=== PATIENT | female | born 1935 | race Caucasian/White ===

== ENCOUNTER 2017-12-17 13:59 | Inpatient (IN) ==
[2017-12-17] MEDS ORDERED: Acetaminophen 325 MG Tablet PO ONE (14:47)
--- NOTE | 2017-12-17 15:01 | ED ---
HPI General Chief Complaint: Fever Stated Complaint: Med/Evac Time Seen by Provider: 12/17/17 14:47 Source: patient, family and EMS Mode of arrival: EMS Limitations: no limitations History of Present Illness HPI Narrative: 82-year-old female that presents to the ED for evaluation of fever. Patient was brought here by ambulance for evaluation of this. Patient was in the same day surgery for urology and apparently for stent removal as well as removal of stones on her kidney. She apparently has deal with some kidney stones and follows with Dr. Clayton who did the outpatient procedure. Apparently she was in postop and she started to develop a fever. Physician got concerned and sent her here for evaluation. Per patient the fever has been as high 102. Per patient she used to be on Cipro and discontinue it a couple of weeks before coming. Denies any urinary or bowel movement issues. No chest pain or shortness of breath. Denies any chest pain or shortness of breath. No other medical issues. She will does not know she was put on antibiotics or not. She was sent here for evaluation. 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 HEAD: Atraumatic. Normocephalic. EYES: Pupils equal and round 4 mms reactive to light and accommodation. No scleral icterus. No injection or drainage. ENT: No nasal bleeding or discharge. Mucous membranes pink and moist. NECK: Trachea midline. No JVD. CARDIOVASCULAR: Regular rate and rhythm. No murmur appreciated. RESPIRATORY: No accessory muscle use. Clear to auscultation. Breath sounds equal bilaterally. GASTROINTESTINAL: Abdomen soft, non-tender, nondistended. Hepatic and splenic margins not palpable. MUSCULOSKELETAL: No obvious deformities. No clubbing. No cyanosis. No edema. Full range of motion of the upper and lower extremities bilaterally. 2+ pulses bilaterally. NEUROLOGICAL: Awake and alert. No obvious cranial nerve deficits. Motor grossly within normal limits. Normal speech. PSYCHIATRIC: Appropriate mood and affect; insight and judgment normal. Course Initial Documented Vital Signs Pulse Oximetry 95 12/17/17 14:48 Last Documented Vital Signs Temperature 102.9 F H 12/17/17 15:00 Pulse Rate 124 H 12/17/17 15:32 Respiratory Rate 20 12/17/17 15:32 Blood Pressure 108/53 L 12/17/17 15:32 Pulse Oximetry 95 12/17/17 15:32 Medical Decision Making SERENITY Attestation SERENITY supervised visit: Yes Attestation: I, Dr. Sage, have reviewed the advance practice practitioner's documentation and am in agreement, met with the patient face to face, made the diagnosis, and the medical decision making was done by me. *My assessment and Findings: Patient seen and evaluated with PA, please see PA note for further details. She is here after stent placement by her urologist, and started running fevers of 102, there is suspicion of urosepsis. Lab work shows significant neutropenia of uncertain etiology. IV antibiotics were initiated after cultures were done. And sepsis protocol was initiated, with plans to admit the patient for further treatment. MDM Narrative Medical decision making narrative: 82-year-old female that presents to the ED for evaluation of fever after surgery. Patient was properly examined and was found to have signs and symptoms of unclear etiology. Deafly concerning for sepsis versus urosepsis. Labs and imaging order. Patient was started on Tylenol as well as Rocephin. Labs and imaging showed patient of note does appear to be very neutropenic. Unclear etiology. I discussed this with the as well as the patient and have never heard this before. Per family they have had blood work but unclear if this is something that the been discussed to in the past. Patient denies having any chemotherapy or any history of immunosuppression. Regardless she does appear to be septic and neutropenic so she requires admission for IV fluids, antibiotics and further evaluation. Case was discussed with my attending who evaluated the patient and agrees with plan. Case was discussed with Dr. Contreras who agrees to admission. I initially had started the patient on Rocephin as possible UTI secondary to the surgery but as patient was found to have neutropenia she was started on cefepime to cover for neutropenic fever. Fever and heart rate has improved but will require further evaluation as stated above. Differential Diagnosis Differential Diagnosis: Sepsis versus urosepsis versus UTI versus pyelonephritis versus fever after surgery Medical Records Medical records reviewed: Yes I reviewed the patient's medical records. Lab Data Lab results reviewed: Yes I reviewed the patient's lab results. Lab results narrative: Lactic acid elevated Result diagrams: 12/17/17 14:50 12/17/17 14:50 Lab Results 12/17/17 12/17/17 12/17/17 Range/Units 14:50 14:50 14:50 WBC 0.5 L (4.0-11.0) th/mm3 RBC 4.33 (4.00-5.30) mil/mm3 Hgb 11.7 (11.6-15.3) gm/dL Hct 36.7 (35.0-46.0) % MCV 84.7 (80.0-100.0) fL MCH 27.0 (27.0-34.0) pg MCHC 31.9 L (32.0-36.0) % RDW 15.6 (11.6-17.2) % Plt Count 106 L (150-450) th/mm3 MPV 8.7 (7.0-11.0) fL Prelim Diff (Auto) Slide review pending Neut % (Auto) 82.3 H (16.0-70.0) % Lymph % (Auto) 15.6 (9.0-44.0) % [place] % (Auto) 0.3 (0.0-8.0) % Eos % (Auto) 1.2 (0.0-4.0) % Baso % (Auto) 0.6 (0.0-2.0) % Neut # (Auto) 0.4 L* (1.8-7.7) th/mm3 Lymph # (Auto) 0.1 L (1.0-4.8) th/mm3 Carroll # (Auto) 0.0 (0.0-0.9) th/mm3 Eos # (Auto) 0.0 (0.0-0.4) th/mm3 Baso # (Auto) 0.0 (0.0-0.2) th/mm3 WBC Differential Manual diff final Seg Neuts % (Manual) 72 H (16-70) % Band Neuts % (Manual) 8 H (0-6) % Lymphocytes % (Manual) 20 (9-44) % Abs Neuts (Manual) 0.4 L* (1.8-7.7) th/mm3 Differential Comment . Platelet Estimate Low L (Normal) Platelet Morphology Normal (Normal) Ovalocytes 1+ H (None) Acanthocytes (Spur) 1+ H (None) Sodium 144 (136-145) meq/L Potassium 4.1 (3.5-5.1) meq/L Chloride 112 H (98-107) meq/L Carbon Dioxide 22.5 (21.0-32.0) meq/L Anion Gap 10 (5-15) meq/L BUN 16 (7-18) mg/dL Creatinine 0.68 (0.50-1.00) mg/dL Estimated GFR 83 L (>89) mL/min Random Glucose 80 (74-106) mg/dL Lactic Acid (0.4-2.0) mmol/L Calcium 8.2 L (8.5-10.1) mg/dL Magnesium 1.5 (1.5-2.5) mg/dL Total Bilirubin 1.9 H (0.2-1.0) mg/dL AST 30 (15-37) U/L ALT 23 (10-53) U/L Alkaline Phosphatase 107 (45-117) U/L Total Protein 5.9 L (6.4-8.2) g/dL Albumin 3.3 L (3.4-5.0) g/dL Urine Color (Yellw/Straw) Urine Clarity (Clear) Urine pH (5.0-8.5) Ur Specific [place] (1.002-1.035) Urine Protein (Neg-Trace) mg/dL Urine Glucose (UA) (Negative) mg/dL Urine Ketones (Negative) mg/dL Urine Occult Blood (Negative) Urine Nitrate (Negative) Urine Bilirubin (Negative) Urine Urobilinogen (Less than 2) mg/dL Ur Leukocyte Esterase (Negative) Urine RBC (0-3) /hpf Urine WBC (0-5) /hpf Micro UA Comment Urine Culture Comments 12/17/17 12/17/17 Range/Units 14:50 15:35 WBC (4.0-11.0) th/mm3 RBC (4.00-5.30) mil/mm3 Hgb (11.6-15.3) gm/dL Hct (35.0-46.0) % MCV (80.0-100.0) fL MCH (27.0-34.0) pg MCHC (32.0-36.0) % RDW (11.6-17.2) % Plt Count (150-450) th/mm3 MPV (7.0-11.0) fL Prelim Diff (Auto) Neut % (Auto) (16.0-70.0) % Lymph % (Auto) (9.0-44.0) % Carroll % (Auto) (0.0-8.0) % Eos % (Auto) (0.0-4.0) % Baso % (Auto) (0.0-2.0) % Neut # (Auto) (1.8-7.7) th/mm3 Lymph # (Auto) (1.0-4.8) th/mm3 [place] # (Auto) (0.0-0.9) th/mm3 Eos # (Auto) (0.0-0.4) th/mm3 Baso # (Auto) (0.0-0.2) th/mm3 WBC Differential Seg Neuts % (Manual) (16-70) % Band Neuts % (Manual) (0-6) % Lymphocytes % (Manual) (9-44) % Abs Neuts (Manual) (1.8-7.7) th/mm3 Differential Comment Platelet Estimate (Normal) Platelet Morphology (Normal) Ovalocytes (None) Acanthocytes (Spur) (None) Sodium (136-145) meq/L Potassium (3.5-5.1) meq/L Chloride (98-107) meq/L Carbon Dioxide (21.0-32.0) meq/L Anion Gap (5-15) meq/L BUN (7-18) mg/dL Creatinine (0.50-1.00) mg/dL Estimated GFR (>89) mL/min Random Glucose (74-106) mg/dL Lactic Acid 2.7 H (0.4-2.0) mmol/L Calcium (8.5-10.1) mg/dL Magnesium (1.5-2.5) mg/dL Total Bilirubin (0.2-1.0) mg/dL AST (15-37) U/L ALT (10-53) U/L Alkaline Phosphatase (45-117) U/L Total Protein (6.4-8.2) g/dL Albumin (3.4-5.0) g/dL Urine Color Red H (Yellw/Straw) Urine Clarity Marked H (Clear) Urine pH 7.0 (5.0-8.5) Ur Specific [place] 1.009 (1.002-1.035) Urine Protein 500 or greater (Neg-Trace) mg/dL Urine Glucose (UA) Negative (Negative) mg/dL Urine Ketones Negative (Negative) mg/dL Urine Occult Blood Small H (Negative) Urine Nitrate Positive H (Negative) Urine Bilirubin Negative (Negative) Urine Urobilinogen Less than 2 (Less than 2) mg/dL Ur Leukocyte Esterase Negative (Negative) Urine RBC (0-3) /hpf Urine WBC (0-5) /hpf Micro UA Comment Culture indicated Urine Culture Comments Culture indicated Imaging Data Attestation: I personally reviewed and interpreted this imaging study as follows : Radiologist's impression: ITS Impressions Chest X-Ray 12/17/17 14:48 CONCLUSION: COPD. Minimal atelectasis left lung base. No evidence of consolidating airspace disease. Abdomen/Pelvis CT 12/17/17 15:01 CONCLUSION: Good position of double-J stent. There is no evidence of abscess. Discharge Plan Physicians Team ED Provider: Arti Sage ED Midlevel Provider: Michael Tripathi Primary Care Provider: Mitchell Aviles Discharge Interventions Interventions: Vital Signs Last Done: 12/17/17 15:32 Status ED Status: Admitted Patient
[2017-12-17 15:25] LABS: Baso % (Auto) 0.6 % (0.0-2.0); Eos % (Auto) 1.2 % (0.0-4.0); Hematocrit 36.7 % (35.0-46.0); Hemoglobin 11.7 gm/dL (11.6-15.3); Lymph # (Auto) 0.1 th/mm3 (1.0-4.8); Lymph % (Auto) 15.6 % (9.0-44.0); Mean Corpuscular HGB Conc 31.9 % (32.0-36.0); Mean Corpuscular Volume 84.7 fL (80.0-100.0); Mean Platelet Volume 8.7 fL (7.0-11.0); Mono % (Auto) 0.3 % (0.0-8.0); Neut # (Auto) 0.4 th/mm3 (1.8-7.7); Neut % (Auto) 82.3 % (16.0-70.0); Platelet Count 106 th/mm3 (150-450); Red Blood Count 4.33 mil/mm3 (4.00-5.30); Red Cell Distribution Width 15.6 % (11.6-17.2); White Blood Count 0.5 th/mm3 (4.0-11.0)
--- NOTE | 2017-12-17 15:26 | XR ---
EXAM DATE: 12/17/2017 3:08 PM EDT AGE/SEX: 82 years / Female INDICATIONS: Fever post procedure today. CLINICAL DATA: This is the patient's initial encounter. Patient reports that signs and symptoms have been present for 1 day and indicates a pain score of 0/10. MEDICAL/SURGICAL HISTORY: None. None. COMPARISON: No prior exams available for comparison. FINDINGS: Lungs are hyperinflated. Minimal atelectasis versus scarring is seen in the left base. There is no ev idence of consolidating airspace disease, mass densities or effusions. Heart and mediastinal structures are unremarkable. CONCLUSION: COPD. Minimal atelectasis left lung base. No evidence of consolidating airspace disease. Electronically signed by: Sherif Fish MD 12/17/2017 3:24 PM EDT
[2017-12-17 15:37] LABS: Albumin 3.3 g/dL (3.4-5.0); Anion Gap 10 meq/L (5-15); Aspartate Aminotransferase 30 U/L (15-37); Blood Urea Nitrogen 16 mg/dL (7-18); Calcium 8.2 mg/dL (8.5-10.1); Carbon Dioxide 22.5 meq/L (21.0-32.0); Chloride 112 meq/L (98-107); Glomerular Filtration Rate 83 mL/min (>89); Glucose,Random 80 mg/dL (74-106); Sodium 144 meq/L (136-145)
[2017-12-17 15:38] LABS: Potassium 4.1 meq/L (3.5-5.1)
[2017-12-17 15:39] LABS: Alanine Aminotransferase 23 U/L (10-53); Alkaline Phosphatase 107 U/L (45-117); Total Protein 5.9 g/dL (6.4-8.2)
[2017-12-17 16:19] LABS: Bilirubin,Urine Negative (Negative); Clarity,Urine Marked (Clear); Color,Urine Red (Yellw/Straw); Glucose,Urine (UA) Negative (Negative); Leukocyte Esterase,Urine Negative (Negative); Nitrite,Urine Positive (Negative); Specific Gravity,Urine 1.009 (1.002-1.035)
[2017-12-17 16:37] LABS: Lymphocytes 20 % (9-44)
[2017-12-17 16:40] LABS: Acanthocytes 1+; Ovalocytes 1+; Platelet Morphology Normal (Normal)
--- NOTE | 2017-12-17 17:13 | CT ---
EXAM DATE: 12/17/2017 4:45 PM EDT AGE/SEX: 82 years / Female INDICATIONS: Stent placed today. Fever, abdominal pain. CLINICAL DATA: This is the patient's initial encounter. Patient reports that signs and symptoms have been present for 1 day and indicates a pain score of 2/10. MEDICAL/SURGICAL HISTORY: None. Hysterectomy. ORAL CONTRAST: No oral contrast ingested. RADIATION DOSE: 4.89 CTDI (mGy) COMPARISON: No prior exams available for comparison. TECHNIQUE: Multiple contiguous axial images were obtained through the abdomen and pelvis following b olus infusion of 80 ml Omnipaque 350 (iohexol) nonionic water-soluble contrast as a single exam dos e. No oral contrast ingested. Using automated exposure control and adjustment of the mA and/or kV ac cording to patient size, radiation dose was kept as low as reasonably achievable to obtain optimal di agnostic quality images. DICOM format image data is available electronically for review and comparis on. FINDINGS: There is subsegmental atelectasis in the both bases. The liver and spleen are normal in size and no f ocal defects are identified. The gallbladder and pancreas are unremarkable. No intrahepatic or extr ahepatic ductal dilatation is seen. There is extensive nephrolithiasis bilaterally. No right-sided hy dronephrosis is seen.. A double-J stent is present on the left in the expected position. There is n o evidence of abscess. No free fluid is identified. Examination of the pelvis demonstrates no evidence of free fluid or pelvic mass. No abnormally enlarg ed inguinal or retroperitoneal lymph nodes are present. The bladder is unremarkable. Numerous surgica l clips are present in the pelvis. CONCLUSION: Good position of double-J stent. There is no evidence of abscess. Electronically signed by: Josef Vargas MD 12/17/2017 5:12 PM EDT
[2017-12-17] MEDS ORDERED: Morphine Inj 4 MG/ML Vial IV.PUSH ONE (18:06)
[2017-12-17] MEDS ORDERED: Sod Chloride 0.9% Inj 1,000 ML IV.SIG ONE ×3 (18:06→19:01)
[2017-12-17] MEDS ORDERED: Norepinephrine Inj 4 MG/4 ML Ampul ONE (19:15)
[2017-12-17] MEDS ORDERED: Vasopressin Inj 40 UNIT in Sodium Chlor 0.9% Inj 98 ML IV.CONT SCH (20:00)
[2017-12-17] MEDS ORDERED: Bisacodyl 10 MG Supp RECTAL PRN (20:00)
[2017-12-17] MEDS ORDERED: Acetaminophen 325 MG Tablet PO PRN (20:02)
[2017-12-17] MEDS ORDERED: Morphine Inj 4 MG/ML Vial IV.PUSH PRN (20:02)
--- NOTE | 2017-12-17 20:14 | P.HPCC ---
History of Present Illness Service: Critical care medicine Primary Care Physician: Mitchell Aviles MD Chief Complaint: Severe sepsis status post transfer from History of Present Illness: This is an 82-year-old female. She is full code. Date of admission . Past medical history includes glaucoma, atrial fibrillation currently normal sinus rhythm on apixaban, recurrent nephrolithiasis. She was recently hospitalized and dilated for hospital for a kidney stone. She had a left-sided stent placed at that time. She was placed on apixaban due to high chads vasc2 score. She has been off this 5 mg twice daily for the procedure today. Today, patient underwent a cystoscopy, left stent removal, left ureteroscopic he with 6 basket retrieval/lithotripsy/left retrograde with left double-J stent placement by . Postprocedure, patient became hypotensive is transferred emergency to [facility]. CT abdomen/pelvis revealed no abnormality findings. Patient is double-J stent placed the left. Patient is received ceftriaxone is currently on cefepime. Patient received a total of 3 L normal saline. Despite this patient came hypotensive requiring norepinephrine drip. We are asked to mid patient. Stent placed in place patient is currently awake and alert denies pain. Inpatient Certification: I certify that the inpatient services were ordered in accordance with Medicare regulations governing the order. This includes certification that hospital inpatient services are reasonable and necessary and in the case of services not specified as inpatient-only under 42 CFR 419.22(n), that they are appropriately provided as inpatient services in accordance to with the 2-midnight benchmark under 43 CFR 412.3(e) Estimated Total Length of Stay (Days): 3 Plans for Post Hospital Care: Other acute care hospital Review of Systems Constitutional: Reports weakness, Denies anorexia, Denies chills Eyes: Denies blind spots, Denies discharge, Denies pain Ears, Nose, Mouth, and Throat: Denies abnormal hearing, Denies bleeding gums, Denies difficulty swallowing Cardiovascular: Reports irregular heart rhythm, Denies chest pain, Denies chest pain at rest Respiratory: Denies change in phlegm color, Denies chest congestion, Denies cough Gastrointestinal: Denies abdominal pain, Denies bloating, Denies change in stools Genitourinary: Denies genital lesions, Denies heavy periods Musculoskeletal: Denies abnormal walking Neurologic: Denies abnormal hearing, Denies restless legs, Denies tingling, Denies tremor(s) Psychiatric: Denies anxiety, Denies memory loss Endocrine: Denies cold intolerance, Denies excessive sweating, Denies flushing Hematologic/Lymphatic: Reports easy bleeding Allergic/Immunologic: Denies hives PMFSH - History History Provided By: Patient, 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, 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 - Medical History Medical History: Medical History (Last Updated 12/17/17 @ 20:16 by Jonah Bartlett MD) Anticoagulant long-term use Glaucoma History of hysterectomy Nephrolithiasis Paroxysmal atrial fibrillation - Surgical History Surgical History: Surgical History (Last Updated 12/17/17 @ 20:17 by Jonah Bartlett MD) History of appendectomy History of renal stent - Tobacco History Second Hand Smoke Exposure: No Tobacco Use In Past 30 Days: No Smoking Status: Never smoker - Alcohol History How Often Do You Have a Drink Containing Alcohol: 2 to 4 times a month - Substance Use History Substance History: No History of Abuse - Travel History Recent Travel in the [place] Within the Last 8 Weeks: No Recent Travel Out of the Country Within the Last 8 Weeks: No - Immunization History Tetanus Immunization: Unsure Hx Influenza Vaccine This Season: No Medications and Allergies Active Medications: Active Medications Acetaminophen (Tylenol) 650 mg PO Q6H PRN PRN Reason: PAIN 1-10 AND/OR FEVER >101F Hydrocodone Bitart/Acetaminophen (Lewis 5/325) 1 tab PO Q4H PRN PRN Reason: PAIN SCALE 1 TO 5 Al Hydroxide/Mg Hydroxide (Milk Of Magnesia Liq) 30 ml PO Q12H PRN PRN Reason: Mild Constipation Al Hydroxide/Mg Hydroxide (Milk Of Magnesia Liq) 30 ml PO Q12H PRN PRN Reason: Mild Constipation Albuterol (Albuterol Neb (Devin)) 2.5 mg NEB Q2HR NEB PRN PRN Reason: SHORTNESS OF BREATH/WHEEZING Albuterol (Duoneb Neb (Prn)) 1 ampul NEB Q4HR NEB DEVIN Bisacodyl (Dulcolax Supp) 10 mg RECTAL DAILY PRN PRN Reason: SEVERE CONSITIPATION Chlorhexidine Gluconate (Chlorhexidine 2% Cloth) 3 pack TOPICAL DAILY@0400 DEVIN Stop: 12/23/17 03:59 Chlorhexidine Gluconate (Chlorhexidine 2% Cloth) 3 pack TOPICAL DAILY@0400 PRN PRN Reason: Extra cloth needed Stop: 12/23/17 03:59 Chlorhexidine Gluconate (Chlorhexidine 2% Cloth) 3 pack TOPICAL DAILY@0400 DEVIN Stop: 12/23/17 03:59 Chlorhexidine Gluconate (Chlorhexidine 2% Cloth) 3 pack TOPICAL DAILY@0400 PRN PRN Reason: Extra cloth needed Stop: 12/23/17 03:59 Famotidine (Pepcid) 20 mg PO BID [facility] Famotidine (Pepcid Pf Inj) 20 mg IV.PUSH Q12HR [facility] Heparin Sodium (Porcine) (Heparin Inj) 5,000 units SQ Q12H DEVIN Cefepime HCl 2,000 mg/ Sodium (Chloride) 100 mls @ 200 mls/hr IV.SIG Q8H [facility] Norepinephrine Bitartrate (Levophed-Dextrose 4 Mg/250 Ml Drip) 4 mg in 250 mls @ 7.5 mls/hr IV.SIG TITRATE PRN; Protocol PRN Reason: Per Protocol Last Admin: 12/17/17 19:22 Dose: 2 mcg/min, 7.5 mls/hr Vasopressin 40 unit/ Sodium (Chloride) 100 mls @ 6 mls/hr IV.CONT CONT DEVIN; Protocol Pharmacy Profile Note (Vancomycin Consult Pharmacy) 0 mls @ 0 mls/hr OTHER UNSCH [facility] Lactulose (Lactulose Liq) 30 ml PO DAILY PRN PRN Reason: SEVERE CONSITIPATION Morphine Sulfate (Morphine Inj) 2 mg IV.PUSH Q2H PRN PRN Reason: PAIN SCALE 6 TO 10 Ondansetron HCl (Zofran Inj) 4 mg IV.PUSH Q6H PRN PRN Reason: NAUSEA OR VOMITING Pantoprazole Sodium (Protonix) 40 mg PO DAILY [facility] Senna/Docusate Sodium (Deyanira-Colace) 1 tab PO BID [facility] Sennosides (Senokot) 17.2 mg PO Q12H PRN PRN Reason: Moderate Constipation Sennosides (Senokot) 17.2 mg PO Q12H PRN PRN Reason: Moderate Constipation Sodium Chloride (Ns Flush) 0 ml IV.FLUSH DAILY [facility] Sodium Chloride (Ns Flush) 2 ml IV.FLUSH BID [facility] Sodium Chloride (Ns Flush) 2 ml IV.FLUSH PRN PRN PRN Reason: FLUSH AFTER USING IV ACCESS Sodium Chloride (Ns Flush) 2 ml IV.FLUSH PRN PRN PRN Reason: FLUSH AFTER USING IV ACCESS Sodium Chloride (Ns Flush) 2 ml IV.FLUSH BID DEVIN Terbutaline Sulfate (Brethine Inj) 1 mg SQ UNSCH PRN PRN Reason: For Extravasation Allergies Allergy/AdvReac Type Severity Reaction Status Date / Time No Known Allergies Allergy Unverified 12/17/17 14:47 Home Medications Medication Instructions Recorded Confirmed Type apixaban [Eliquis] 5 mg PO BID 12/17/17 12/17/17 History brimonidine [Alphagan P] 1 drp OPHTHALMIC (EYE) BID 12/17/17 12/17/17 History cyanocobalamin (vitamin B-12) 1,000 mcg PO DAILY 12/17/17 12/17/17 History [Vitamin B-12] dorzolamide 1 drp OPHTHALMIC (EYE) BID 12/17/17 12/17/17 History pilocarpine HCl 1 drp OPHTHALMIC (EYE) TID 12/17/17 12/17/17 History travoprost [Travatan Z] 1 drp OPHTHALMIC (EYE) QPM 12/17/17 12/17/17 History Results - Labs CBC & Chem 7: 12/17/17 14:50 12/17/17 14:50 Labs: Short CBC 12/17/17 Range/Units 14:50 WBC 0.5 L (4.0-11.0) th/mm3 Hgb 11.7 (11.6-15.3) gm/dL Hct 36.7 (35.0-46.0) % Plt Count 106 L (150-450) th/mm3 BMP 12/17/17 14:50 Sodium 144 Potassium 4.1 Chloride 112 H Carbon Dioxide 22.5 BUN 16 Creatinine 0.68 Calcium 8.2 L Liver Function 12/17/17 Range/Units 14:50 Total Bilirubin 1.9 H (0.2-1.0) mg/dL AST 30 (15-37) U/L ALT 23 (10-53) U/L Alkaline Phosphatase 107 (45-117) U/L Albumin 3.3 L (3.4-5.0) g/dL Urine 12/17/17 Range/Units 15:35 Urine Color Red H (Yellw/Straw) Urine Clarity Marked H (Clear) Urine pH 7.0 (5.0-8.5) Ur Specific [place] 1.009 (1.002-1.035) Urine Protein 500 or greater (Neg-Trace) mg/dL Urine Glucose (UA) Negative (Negative) mg/dL - Imaging Impressions Chest X-Ray 12/17/17 14:48 CONCLUSION: COPD. Minimal atelectasis left lung base. No evidence of consolidating airspace disease. Abdomen/Pelvis CT 12/17/17 15:01 CONCLUSION: Good position of double-J stent. There is no evidence of abscess. Exam Vital signs: Vital Signs 12/17/17 14:48 12/17/17 15:00 12/17/17 15:32 Temperature 102.9 F H Pulse Rate 132 H 124 H Respiratory Rate 20 20 Blood Pressure 109/49 L 108/53 L Pulse Oximetry 95 94 L 95 12/17/17 17:28 Temperature 97.9 F Pulse Rate 96 H Respiratory Rate 16 Blood Pressure 89/44 L Pulse Oximetry 98 Intake & Output 12/17/17 12/17/17 12/18/17 06:59 18:59 06:59 Intake Total 100 / 100 Balance 100 / 100 Weight 53.524 kg Intake: IV 100 / 100 Rocephin Inj 1,000 MG In NS Inj 100 / 100 100 ML @ 200 mls/hr IV.SIG ONCE ONE Rx#:[id number] - Constitutional no acute distress, cooperative - Routine HEENT Exam Head: Present: normocephalic, atraumatic Eye: Present: EOMI, PERRL ENT: Present: mucous membranes moist - Routine Neck Exam Present: supple. Absent: JVD, thyromegaly - Routine Chest/Breast/Axilla Exam Chest wall: Absent: tenderness, mass Axillae: Absent: lymphadenopathy - Routine Respiratory Exam Present: CTA bilaterally. Absent: accessory muscle use, rhonchi, stridor, wheezes - Routine Cardiovascular Exam Present: RRR, S1, S2. Absent: murmur - Routine Abdominal Exam Present: soft, normoactive bowel sounds. Absent: firm, rigid - Routine Extremities Exam Absent: cyanosis, clubbing, edema - Routine Skin Exam Present: intact, dry, warm - Routine Neurological Exam Present: alert, oriented X3, CN II-XII intact Septic Shock Reassessment Septic shock perfusion: reassessment completed Caprini VTE Risk Assessment Caprini VTE Risk Assessment: Moderate/High Risk (score >= 2) Caprini Risk Assessment Model: Point Value = 1 Point Value = 2 Point Value = 3 Point Value = 5 Age 41-60 Minor surgery BMI > 25 kg/m2 Swollen legs Varicose veins or History of unexplained or recurrent spontaneous Oral contraceptives or hormone replacement Sepsis (< 1 month) Serious lung disease, including pneumonia (< 1 month) Abnormal pulmonary function Acute myocardial infarction Congestive heart failure (< 1 month) History of inflammatory bowel disease Medical patient at bed rest Age 61-74 Arthroscopic surgery Major open surgery (> 45 min) Laparoscopic surgery (> 45 min) Malignancy Confined to bed (> 72 hours) Immobilizing plaster cast Central venous access Age >= 75 History of VTE Family history of VTE Factor V Leiden Prothrombin [id number] Lupus anticoagulant Anticardiolipin antibodies Elevated serum homocysteine Heparin-induced thrombocytopenia Other congenital or acquired thrombophilia Stroke (< 1 month) Elective arthroplasty Hip, pelvis, or leg fracture Acute spinal cord injury (< 1 month) Prophylaxis Regimen: Total Risk Factor Score Risk Level Prophylaxis Regimen 0-1 Low Early ambulation 2 Moderate Order ONE of the following: *Sequential Compression Device (SCD) *Heparin 5000 units SQ BID 3-4 Higher Order ONE of the following medications: *Heparin 5000 units SQ TID *Enoxaparin/Lovenox 40 mg SQ daily (WT < 150 kg, CrCl > 30 mL/min) *Enoxaparin/Lovenox 30 mg SQ daily (WT < 150 kg, CrCl > 10-29 mL/min) *Enoxaparin/Lovenox 30 mg SQ BID (WT < 150 kg, CrCl > 30 mL/min) AND/OR *Sequential Compression Device (SCD) 5 or more Highest Order ONE of the following medications: *Heparin 5000 units SQ TID (Preferred with Epidurals) *Enoxaparin/Lovenox 40 mg SQ daily (WT < 150 kg, CrCl > 30 mL/min) *Enoxaparin/Lovenox 30 mg SQ daily (WT < 150 kg, CrCl > 10-29 mL/min) *Enoxaparin/Lovenox 30 mg SQ BID (WT < 150 kg, CrCl > 30 mL/min) AND *Sequential Compression Device (SCD) Assessment and Plan - Assessment and Plan Plan: Neuro/Psych: Glaucoma Medicine reconciliation currently in process for her glaucoma medications which she is on 4 according to son at bedside. These are not available to me at the present time. Acetaminophen 650 mg by mouth every 6 hours as needed fever Hydrocodone/acetaminophen 5/325 1 tablet every 4 hours as needed pain 1 through 5 Morphine sulfate 2 mg IV every 2 hours as needed pain 6 or 10 CV: Lactic acidosis History of atrial fibrillation currently normal sinus rhythm Lactate is currently 3.8. Received 4 L normal saline in ED. Switch to LR at 100 cc an hour. Serial lactates until cleared Currently on norepinephrine at 6 mcg/min to maintain mean arterial pressure greater or equal to [address]-T changes in the anterior leads. Normal sinus rhythm. Normal MN, QRS and QT intervals. Check CPK and troponin Resp: Nasal cannula to maintain saturations greater than equal to 92% Incentive spirometry while awake Check post intubation chest x-ray and ABG Albuterol/ipratropium aerosols every 4 hours with albuterol aerosols every 2 hours as needed dyspnea GI: Elevated total bilirubin Hypoalbuminemia Diet as tolerated Pantoprazole for GI prophylaxis Docusate sodium/senna 1 tablet twice daily for bowel regimen CT abdomen/pelvis revealed no acute intra-abdominal findings. Double-J stent remains in place : Status post left renal stent retrieval with placement of double-J stent/ lithotripsy History of recurrent nephrolithiasis with lithotripsy Dr. Clayton did the procedure above. He does not come to this facility. No Vance catheter unless indicated Endo: Sliding scale insulin if necessary to maintain euglycemia Check TSH and cortisol Renal: Creatinine currently within normal limits Monitor urine output Accurate I's and O's and recheck BMP in a.m. 12/18 Heme: Leukopenia with neutropenia Thrombocytopenia Monitor CBC daily. Follow trends. Neutropenic precautions No active bleeding at the present time. ID: Severe sepsis likely secondary to urinary tract infection Currently in vancomycin and cefepime Blood cultures 2, UA 12/17 pending Neutropenic precautions FEN: Hypomagnesia Replace electrolytes as clinically indicated per ICU electrolyte protocol MSK: PT evaluate and treat Access -Right IJ CVL day #1 placed in 12/17 Prophylaxis -GI -pantoprazole -DVT -SCD/heparin subcu 35 minutes critical care time
[2017-12-17] MEDS ORDERED: Heparin - SQ 10,000 UNITS/ML Vial SQ SCH ×2 (20:15→21:00)
[2017-12-17] MEDS ORDERED: Potassium Chloride 25 MEQ Effervescent Tablet PO PRN (20:28)
[2017-12-17] MEDS ORDERED: Sodium Phosphate Inj 30 MMOL in Sodium Chlor 0.9% Inj 250 ML IV.SIG PRN (20:28)
[2017-12-17] MEDS ORDERED: Potassium Chlor 20 mEq Premix 20 MEQ/100 ML PIGGYBACK IV.SIG PRN (20:28)
[2017-12-17] MEDS ORDERED: Magnesium Sulfate Inj 4 GM in Sodium Chlor 0.9% Inj 92 ML IV.SIG PRN ×2 (20:28→22:10)
[2017-12-17] MEDS ORDERED: Magnesium Oxide 400 MG Tablet PO PRN (20:28)
[2017-12-17] MEDS ORDERED: Dextrose 50% in Water 50 ML Vial IV.PUSH PRN (20:28)
[2017-12-17] MEDS ORDERED: Potassium Phosphate Inj 30 MMOL in Sodium Chlor 0.9% Inj 250 ML IV.SIG PRN (20:28)
[2017-12-17] MEDS ORDERED: Potassium Chlor 40 mEq Premix 40 MEQ/100 ML PIGGYBACK IV.SIG PRN (20:28)
[2017-12-17] MEDS ORDERED: Potassium Phosphate 500 MG Soluble Tablet PO PRN ×2 (20:28)
[2017-12-17] MEDS ORDERED: Magnesium Sulfate Inj 2 GM in Sodium Chlor 0.9% Inj 96 ML IV.SIG PRN (20:28)
--- NOTE | 2017-12-17 20:30 | P.PCN ---
Date of procedure: 12/17/17 Pre-op diagnosis: Severe sepsis Post-op diagnosis: same Procedure: DATE: 12/17/2017 CENTRAL LINE PLACEMENT: Right IJ CVL. Ultrasound-guided INDICATION: Central venous access CONSENT Informed consent for procedure was obtained from patient. DESCRIPTION OF THE PROCEDURE The patient was placed in supine position. The skin was cleansed with Chloraprep. Additional barrier precautions included large sterile drape, sterile gloves, sterile gown, face mask, and hat. 1 % lidocaine was used for local anesthesia. Under direct ultrasound guidance and on initial attempt, the vein was accessed with an introducer needle. The guide wire was advanced and the tract was dilated. Using Seldinger technique a 7 [place] 20 cm antimicrobial coated triple-lumen catheter was advanced to a depth of 16 centimeters. The guide wire was removed. All ports had good return of dark venous blood and flushed easily with saline. The central line was secured with 2.0 silk and StatLock. A sterile dressing with antibiotic disc was applied. ESTIMATED BLOOD LOSS: Minimal COMPLICATIONS: No apparent complications. STAT chest x-ray revealed adequate positioning of central line
--- NOTE | 2017-12-17 20:44 | XR ---
EXAM DATE: 12/17/2017 8:40 PM EDT AGE/SEX: 82 years / Female INDICATIONS: Central line placement. CLINICAL DATA: This is the patient's initial encounter. Patient reports that signs and symptoms have been present for 1 day and indicates a pain score of 0/10. MEDICAL/SURGICAL HISTORY: Non-responsive. Non-responsive. COMPARISON: [facility], CHEST 1V SINGLE AP, 12/17/2017. . FINDINGS: Study obtained supine. No perceptible pneumothorax. There is a right internal jugular central venous catheter with tip at the atriocaval junction. No large effusion. Heart size stable, within normal limits. CONCLUSION: New right IJ central venous catheter with tip at the atriocaval junction. No perceptible pneumothorax . Electronically signed by: Andre Will MD 12/17/2017 8:43 PM EDT
[2017-12-17] MEDS ORDERED: Famotidine 20 MG Tablet PO SCH (21:00)
[2017-12-17] MEDS ORDERED: Famotidine PF Inj 20 MG/2 ML Vial IV.PUSH SCH (21:00)
[2017-12-17] MEDS ORDERED: Vancomycin Consult Pharmacy 1 EACH OTHER SCH (21:00)
[2017-12-17 21:17] LABS: ABG Base Excess -7.2 mmol/L (-2-2); ABG PCO2 32 mmHg (38-42); ABG PO2 62 mmHg (61-120)
[2017-12-17] MEDS ORDERED: Vancomycin Inj 1,250 MG in Sodium Chlor 0.9% Inj 250 ML IV.SIG ONE (22:00)
[2017-12-17] MEDS: Vasopressin Inj 40 UNIT in Sodium Chlor 0.9% Inj 98 ML IV.CONT SCH (22:37)
[2017-12-17] MEDS: Senna/Docusate Sodium 8.6/50 MG Tablet PO SCH (22:38)
[2017-12-18 00:04] LABS: Thyroid Stimulating Hormone 2.05 uIU/mL (0.358-3.740); Troponin I 0.39 ng/mL (0.02-0.05)
[2017-12-18] MEDS: Insulin NovoLOG Aspart Correctional Sugar Inj SQ SCH ×4 (01:55→18:35)
[2017-12-18] MEDS: Chlorhexidine Gluconate 2% 1 Pack (2 Cloths) TOPICAL SCH (03:27)
[2017-12-18] MEDS ORDERED: Chlorhexidine Gluconate 2% 1 Pack (2 Cloths) TOPICAL PRN ×2 (04:00)
[2017-12-18] MEDS ORDERED: Chlorhexidine Gluconate 2% 1 Pack (2 Cloths) TOPICAL SCH (04:00)
[2017-12-18 04:31] LABS: Baso % (Auto) 0.1 % (0.0-2.0); Hematocrit 29.1 % (35.0-46.0); Hemoglobin 9.4 gm/dL (11.6-15.3); Lymph # (Auto) 0.6 th/mm3 (1.0-4.8); Lymph % (Auto) 4.3 % (9.0-44.0); Mean Corpuscular HGB Conc 32.3 % (32.0-36.0); Mean Corpuscular Hemoglobin 27.4 pg (27.0-34.0); Mean Corpuscular Volume 84.9 fL (80.0-100.0); Mean Platelet Volume 8.8 fL (7.0-11.0); Mono # (Auto) 0.1 th/mm3 (0.0-0.9); Mono % (Auto) 0.9 % (0.0-8.0); Neut # (Auto) 12.6 th/mm3 (1.8-7.7); Neut % (Auto) 94.7 % (16.0-70.0); Platelet Count 73 th/mm3 (150-450); Red Blood Count 3.42 mil/mm3 (4.00-5.30); Red Cell Distribution Width 15.7 % (11.6-17.2); White Blood Count 13.3 th/mm3 (4.0-11.0)
[2017-12-18 04:43] LABS: INR 1.5 Ratio; Prothrombin Time 15.4 sec (9.8-11.6)
[2017-12-18 04:48] LABS: ABG Base Excess -11.2 mmol/L (-2-2); ABG PCO2 34 mmHg (38-42); ABG PO2 82 mmHG (61-120)
[2017-12-18] MEDS ORDERED: Etomidate Inj 20 MG/10 ML Ampul IV.PUSH ONE (05:01)
[2017-12-18 05:03] LABS: Albumin 2.2 g/dL (3.4-5.0); Calcium 6.7 mg/dL (8.5-10.1); Carbon Dioxide 15.3 meq/L (21.0-32.0); Magnesium 1.3 mg/dL (1.5-2.5); Phosphorus 2.5 mg/dL (2.5-4.9); Potassium 3.6 meq/L (3.5-5.1); Total Protein 4.4 g/dL (6.4-8.2)
[2017-12-18] MEDS ORDERED: Propofol 1000 mg/100 ml Inj 1,000 MG/100 ML BOTTLE IV.CONT PRN (05:03)
[2017-12-18] MEDS ORDERED: fentaNYL 10 mcg/mL Premix Drip 2,500 MCG/250 ML BAG IV.SIG PRN (05:04)
[2017-12-18 05:37] LABS: CKMB Percent 1.9 % (0.0-4.0)
--- NOTE | 2017-12-18 05:38 | ECG ---
Date Performed: 12/17/2017 Time Performed: 20:09:27 PTAGE: 82 years EKG: Sinus rhythm Nonspecific ST and T wave abnormalities ABNORMAL ECG NO PREVIOUS TRACING DOCTOR: Titi Garcia Interpretating Date/Time 12/18/2017 05:37:23
[2017-12-18 05:41] LABS: Lymphocytes 2 % (9-44)
[2017-12-18 05:42] LABS: Ovalocytes 1+; Platelet Morphology Normal (Normal)
--- NOTE | 2017-12-18 05:46 | P.PCN ---
Date of procedure: 12/18/17 Pre-op diagnosis: Acute respiratory failure Post-op diagnosis: same Procedure: DATE: 12/18/2017 PROCEDURE: Orotracheal intubation INDICATION: Acute hypoxemic respiratory failure DETAILS OF PROCEDURE The patient was placed in optimal position and preoxygenated with 100% FiO2 via bag valve mask. At the start oxygen saturation was 98%. The patient was administered 20 mg etomidate IV and 50 milligrams rocuronium IV. I entered the oropharynx with a size 4 laryngoscope blade and obtained a grade 2 view of the airway. On single attempt a size 8.0 cuffed endotracheal tube was passed through the vocal cords. Correct tube location was confirmed with end tidal CO2 detector and by auscultating over bilateral lung hinson. The endotracheal tube was secured with adhesive tape at a depth of 23 cm at the lips. The patient was connected to the ventilator. The patient tolerated the procedure well without any apparent complications. Oxygen saturations were maintained greater than 95% all times. STAT chest x-ray pending at time of dictation.
--- NOTE | 2017-12-18 05:47 | P.PCN ---
Date of procedure: 12/18/17 Pre-op diagnosis: Hemodynamic instability Post-op diagnosis: same Procedure: DATE: 12/18/2017 PROCEDURE: Right femoral arterial catheter placement INDICATION: Hemodynamic access DETAILS OF PROCEDURE The patient was placed in supine position. The skin was cleansed with Chloraprep. Additional barrier precautions included large sterile drape, sterile gloves, sterile gown, face mask, and hat. 1% lidocaine was used for local anesthesia. Under direct ultrasound guidance and on the initial attempt, the artery was accessed with an introducer needle. The guide wire was advanced. Using Seldinger technique 20 gauge arterial catheter was placed. The guide wire was removed. The catheter was connected to a transducer line and flushed with saline. The video monitor displayed normal arterial wave forms. The catheter was secured with 2-0 silk. A sterile dressing with antibiotic disc was applied. ESTIMATED BLOOD LOSS: minimal COMPLICATIONS: None
[2017-12-18 06:06] LABS: ABG Base Excess -10.5 mmol/L (-2-2); ABG PCO2 38 mmHg (38-42); ABG PO2 188 mmHG (61-120)
--- NOTE | 2017-12-18 06:18 | XR ---
EXAM DATE: 12/18/2017 6:09 AM EDT AGE/SEX: 82 years / Female INDICATIONS: Post intubation. CLINICAL DATA: This is the patient's subsequent encounter. Patient reports that signs and symptoms h ave been present for 1 day and indicates a pain score of Nonresponsive. MEDICAL/SURGICAL HISTORY: Non-responsive. Non-responsive. COMPARISON: [facility], CHEST 1V SINGLE AP, 12/17/2017. . FINDINGS: ETT at the level of the clavicles. NGT beyond the GE junction. Stable right IJ central line. Persiste nt diffuse interstitial prominence with bilateral lower lobe airspace disease. Cardiomediastinal cont ours are stable. Remainder of the exam is unchanged. CONCLUSION: 1. ETT in good position. NGT beyond the GE junction. Stable right IJ central line. 2. Positive fluid balance with persistent bilateral lower lobe airspace disease. Electronically signed by: Vj Payan MD 12/18/2017 6:17 AM EDT
[2017-12-18] MEDS ORDERED: Midazolam 50 MG/50 ML Inj 50 MG/50 ML BAG IV.CONT PRN (07:39)
[2017-12-18 08:14] LABS: ABG Base Excess -10.3 mmol/L (-2-2); ABG PCO2 34 mmHg (38-42); ABG PO2 190 mmHG (61-120)
[2017-12-18] MEDS ORDERED: BRIMONIDINE EACH EYE SCH (09:00)
[2017-12-18] MEDS ORDERED: Sod Chloride 0.9% Inj 2,000 ML IV.SIG ONE (09:16)
[2017-12-18] MEDS: Senna/Docusate Sodium 8.6/50 MG Tablet PO SCH ×2 (09:34→20:59)
[2017-12-18] MEDS: Chlorhexidine 0.12% Oral Kit 15 ML UDC OROPHARYNG SCH ×2 (09:35→20:57)
[2017-12-18] MEDS: Sodium Bicarbonate 8.4% Inj 150 MEQ in Dextrose 5% in Water Inj 850 ML IV.CONT SCH ×4 (09:35→18:34)
--- NOTE | 2017-12-18 09:44 | P.CONID ---
History of Present Illness Service: Infectious Disease Consult date: 12/18/17 Requesting Physician: Donato Loyola Reason for Consult: Evaluate patient with septic shock Primary Care Provider: Mitchell Aviles MD Chief Complaint: Severe sepsis status post transfer from History of Present Illness: Patient seen and examined. Records reviewed. Patient is an 82-year-old female, brought into the hospital from an outpatient surgery center, for evaluation of fevers, and hypotension. Patient has had problem with kidney stones in the past, and in the past she had passed the stones spontaneously. During the first week of November she was admitted at [facility] when she had trouble and she was in septic shock at that time. This history is from the patient's son. She had undergone cystoscopy and had placement of a stent at that time. Her blood cultures were negative, and her urine culture had E. coli. Patient was discharged on Augmentin 503 times a day , and she had 7 days of antibiotic treatment. According to the son another urine was sent, and it still showed urinary tract infection, so the patient was given another prescription and this time received Cipro. She was supposed to get an her stent placed but this was postponed due to the persistence of the infection. Patient went to have her stent removed on the day of admission, and she underwent cystoscopy, left stent removal, removal of the stone with the basket, lithotripsy, and placement of a new left double-J ureteric stent. Postoperatively she apparently had fevers up to 102 and became hypotensive, so she was transferred to the hospital for further evaluation and treatment. When she presented she was profoundly neutropenic, hypotensive. She received fluid resuscitation and remained hypotensive and is currently on pressors. She ended up getting intubated this morning. She was also very acidotic. Her urinalysis showed significant pyuria and hematuria. Patient is afebrile. Her white count is now up to 13.3. Her initial creatinine was less than 1, and it had gone up to 1.41. Her chest x-ray now is showing by basilar opacities. Infectious disease consultation has been requested to evaluate the patient with sepsis and septic shock. Review of Systems Constitutional: Reports chills, Reports fever(s), Denies headache(s) Eyes: Denies itchy eyes, Denies pain Ears, Nose, Mouth, and Throat: Denies dry mouth, Denies nasal congestion, Denies nasal discharge, Denies pain with swallowing, Denies sore throat Cardiovascular: Denies chest pain, Denies shortness of breath Respiratory: Denies cough, Denies shortness of breath Gastrointestinal: Denies abdominal pain, Denies loose stools, Denies nausea, Denies pain with swallowing, Denies vomiting Genitourinary: Denies blood in urine, Denies painful urination, Denies pelvic pain Musculoskeletal: Denies body aches Skin/Breast: Denies rash Neurologic: Denies headache(s) PMF - History History Provided By: Patient, 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, 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 - Medical History Medical History: Medical History (Last Updated 12/17/17 @ 20:16 by Jonah Bartlett MD) Anticoagulant long-term use Glaucoma History of hysterectomy Nephrolithiasis Paroxysmal atrial fibrillation - Surgical History Surgical History: Surgical History (Last Updated 12/17/17 @ 20:17 by Jonah Bartlett MD) History of appendectomy History of renal stent - Tobacco History Second Hand Smoke Exposure: No Tobacco Use In Past 30 Days: No Smoking Status: Never smoker - Alcohol History How Often Do You Have a Drink Containing Alcohol: Monthly or less - Substance Use History Substance History: No History of Abuse - Travel History Recent Travel in the [place] Within the Last 8 Weeks: No Recent Travel Out of the Country Within the Last 8 Weeks: No - Immunization History Tetanus Immunization: Unsure Hx Influenza Vaccine This Season: No Medications and Allergies Active Medications: Active Medications Acetaminophen (Tylenol) 650 mg PO Q6H PRN PRN Reason: PAIN 1-10 AND/OR FEVER >101F Hydrocodone Bitart/Acetaminophen ([place]ance 5/325) 1 tab PO Q4H PRN PRN Reason: PAIN SCALE 1 TO 5 Al Hydroxide/Mg Hydroxide (Milk Of Magnesia Liq) 30 ml PO Q12H PRN PRN Reason: Mild Constipation Al Hydroxide/Mg Hydroxide (Milk Of Magnesia Liq) 30 ml PO Q12H PRN PRN Reason: Mild Constipation Albuterol (Albuterol Neb (Prn)) 2.5 mg NEB Q2HR NEB PRN PRN Reason: SHORTNESS OF BREATH Albuterol (Duoneb Neb (Devin)) 1 ampul NEB Q4HR NEB DEVIN Last Admin: 12/18/17 08:24 Dose: 1 ampul Artificial Tears (Tears Naturale Opth Drops) 1 drop EACH EYE Q8H DEVIN Bisacodyl (Dulcolax Supp) 10 mg RECTAL DAILY PRN PRN Reason: SEVERE CONSITIPATION Chlorhexidine Gluconate (Chlorhexidine 2% Cloth) 3 pack TOPICAL DAILY@0400 [facility] Stop: 12/23/17 03:59 Last Admin: 12/18/17 03:27 Dose: 3 pack Chlorhexidine Gluconate (Peridex 0.12% Oral Kit) 15 ml OROPHARYNG BID@0800, 2000 [facility] Cyanocobalamin (Vitamin B12) 1,000 mcg PO DAILY [facility] Dextrose (D50w Vial) 50 ml IV.PUSH UNSCH PRN PRN Reason: PER HYPOGLYCEMIA PROTOCOL Dextrose (D50w Vial) 50 ml IV.PUSH UNSCH PRN PRN Reason: PER HYPOGLYCEMIA PROTOCOL Dorzolamide HCl (Trusopt 2% Opth Drops) 1 drop EACH EYE BID [facility] Glucagon (Glucagon Inj) 1 mg OTHER PRN PRN PRN Reason: for Hypoglycemia Protocol Cefepime HCl 2,000 mg/ Sodium (Chloride) 100 mls @ 200 mls/hr IV.SIG Q8H [facility] Last Admin: 12/18/17 03:26 Dose: 200 mls/hr Pharmacy Profile Note (Vancomycin Consult Pharmacy) 0 mls @ 0 mls/hr OTHER UNSCH [facility] Potassium Chloride (Kcl 40 Meq Premix Inj) 40 meq in 100 mls @ 25 mls/hr IV.SIG Q2H PRN PRN Reason: For Potassium 2.8 - 3.2 mEq/L Potassium Chloride (Kcl 40 Meq Premix Inj) 40 meq in 100 mls @ 25 mls/hr IV.SIG UNSCH PRN PRN Reason: For Potassium 3.3 - 3.5 mEq/L Potassium Chloride (Kcl 20 Meq Premix Inj) 20 meq in 100 mls @ 50 mls/hr IV.SIG Q2H PRN PRN Reason: For Potassium 2.8 - 3.2 mEq/L Potassium Phosphate 30 mmol/ (Sodium Chloride) 260 mls @ 42 mls/hr IV.SIG UNSCH PRN PRN Reason: SEE LABEL COMMENTS Sodium Phosphate 30 mmol/ (Sodium Chloride) 260 mls @ 42 mls/hr IV.SIG UNSCH PRN PRN Reason: For Phosphorus < 2.5 mg/dL Potassium Chloride (Kcl 20 Meq Premix Inj) 20 meq in 100 mls @ 50 mls/hr IV.SIG Q2H PRN PRN Reason: For Potassium 3.3 - 3.5 mEq/L Vancomycin HCl 750 mg/ Sodium (Chloride) 257.5 mls @ 250 mls/hr IV.SIG Q24H DEVIN Vasopressin 40 unit/ Sodium (Chloride) 100 mls @ 6 mls/hr IV.CONT CONT DEVIN; Protocol Last Admin: 12/17/17 22:37 Dose: 0.04 units/min, 6 mls/hr Magnesium Sulfate Inj 4 gm/ (Sodium Chloride) 100 mls @ 50 mls/hr IV.SIG UNSCH PRN PRN Reason: For Magnesium 0.9 - 1.1 mg/dL Magnesium Sulfate Inj 2 gm/ (Sodium Chloride) 100 mls @ 50 mls/hr IV.SIG UNSCH PRN PRN Reason: For Magnesium 1.2 - 1.6 mg/dL Fentanyl (Fentanyl 10 Mcg/Ml Premix Drip) 2,500 mcg in 250 mls @ 5 mls/hr IV.SIG TITRATE PRN; Protocol PRN Reason: Per Protocol Propofol (Diprivan 1000 Mg/100 Ml Inj) 1,000 mg in 100 mls @ 1.887 mls/hr IV.CONT TITRATE PRN; Protocol PRN Reason: Per Protocol Norepinephrine Bitartrate 16 (mg/ Dextrose) 250 mls @ 1.87 mls/hr IV.CONT TITRATE PRN; Protocol PRN Reason: See Protocol Sodium Bicarbonate 150 meq/ (Dextrose) 1,000 mls @ 125 mls/hr IV.CONT .Q8H DEVIN Midazolam HCl (Versed Inj) 50 mg in 50 mls @ 2 mls/hr IV.CONT TITRATE PRN; Protocol PRN Reason: Per Protocol Albumin Human (Alburx 5% Inj) 500 mls @ 250 mls/hr IV.SIG Q8HR DEVIN Sodium Chloride (Ns Inj) 2,000 mls @ 0 mls/hr IV.SIG BOLUS ONE Stop: 12/18/17 09:17 Insulin Aspart (Novolog Insulin Suppl Scale Inj) 0 unit SQ Q6HR DEVIN; Protocol Last Admin: 12/18/17 01:55 Dose: Not Given Lactulose (Lactulose Liq) 30 ml PO DAILY PRN PRN Reason: SEVERE CONSITIPATION Lansoprazole (Prevacid Solutab) 30 mg NG/OG DAILY DEVIN Latanoprost (Xalatan 0.005% Opth Drops) 1 drop EACH EYE QPM [facility] Magnesium Oxide (Mag-Ox) 800 mg PO UNSCH PRN PRN Reason: For Magnesium 1.2 - 1.6 mg/dL Last Admin: 12/17/17 22:33 Dose: 800 mg Ondansetron HCl (Zofran Odt) 4 mg PO Q6H PRN PRN Reason: NAUSEA OR VOMITING Last Admin: 12/18/17 01:55 Dose: 4 mg Pat Own Med: Brimonidine (Alphgan P) 0.1% Oph Solution 0 each EACH EYE BID [facility] Pilocarpine HCl (Pilocar 1% Opth Drops) 1 drop EACH EYE TID [facility] Potassium Bicarb/Potassium Chloride (K-Lyte Cl Eff) 50 meq PO UNSCH PRN PRN Reason: For Potassium 3.3 - 3.5 mEq/L Potassium Phosphate (K-Phos Original) 2,000 mg PO Q4H PRN PRN Reason: Phosphorus Less Than 2.5 mg/dL Potassium Phosphate (K-Phos Original) 2,000 mg PO UNSCH PRN PRN Reason: SEE LABEL COMMENTS Senna/Docusate Sodium (Deyanira-Colace) 1 tab PO BID [facility] Last Admin: 12/17/17 22:38 Dose: Not Given Sennosides (Senokot) 17.2 mg PO Q12H PRN PRN Reason: Moderate Constipation Sennosides (Senokot) 17.2 mg PO Q12H PRN PRN Reason: Moderate Constipation Sodium Chloride (Ns Flush) 0 ml IV.FLUSH DAILY [facility] Last Admin: 12/17/17 21:39 Dose: 6 ml Sodium Chloride (Ns Flush) 2 ml IV.FLUSH PRN PRN PRN Reason: FLUSH AFTER USING IV ACCESS Sodium Chloride (Ns Flush) 2 ml IV.FLUSH BID [facility] Last Admin: 12/17/17 22:21 Dose: Not Given Terbutaline Sulfate (Brethine Inj) 1 mg SQ UNSCH PRN PRN Reason: For Extravasation Allergies Allergy/AdvReac Type Severity Reaction Status Date / Time No Known Allergies Allergy Unverified 12/17/17 14:47 Home Medications Medication Instructions Recorded Confirmed Type apixaban [Eliquis] 5 mg PO BID 12/17/17 12/17/17 History brimonidine [Alphagan P] 1 drp OPHTHALMIC (EYE) BID 12/17/17 12/17/17 History cyanocobalamin (vitamin B-12) 1,000 mcg PO DAILY 12/17/17 12/17/17 History [Vitamin B-12] dorzolamide 1 drp OPHTHALMIC (EYE) BID 12/17/17 12/17/17 History pilocarpine HCl 1 drp OPHTHALMIC (EYE) TID 12/17/17 12/17/17 History travoprost [Travatan Z] 1 drp OPHTHALMIC (EYE) QPM 12/17/17 12/17/17 History Exam Vital signs: Vital Signs 12/17/17 14:48 12/17/17 15:00 12/17/17 15:32 Temperature 102.9 F H Pulse Rate 132 H 124 H Respiratory Rate 20 20 Blood Pressure 109/49 L 108/53 L Pulse Oximetry 95 94 L 95 12/17/17 17:28 12/17/17 21:07 12/17/17 22:30 Temperature 97.9 F 98.1 F Pulse Rate 96 H 95 H 93 H Respiratory Rate 16 15 20 Blood Pressure 89/44 L 82/43 L Pulse Oximetry 98 95 12/17/17 22:41 12/17/17 23:00 12/17/17 23:30 Temperature Pulse Rate 86 86 Respiratory Rate 18 20 Blood Pressure 82/43 L 74/47 L 79/49 L Pulse Oximetry 96 95 93 L 12/17/17 23:44 12/18/17 00:00 12/18/17 00:38 Temperature Pulse Rate 82 84 84 Respiratory Rate 19 20 17 Blood Pressure 80/48 L 82/49 L Pulse Oximetry 94 L 95 12/18/17 03:43 12/18/17 04:00 12/18/17 05:20 Temperature 97.5 F L Pulse Rate 84 91 H Respiratory Rate 22 32 H 15 Blood Pressure 95/50 L Pulse Oximetry 89 L 100 12/18/17 05:59 12/18/17 07:00 12/18/17 08:28 Temperature Pulse Rate 104 H 87 Respiratory Rate 20 20 Blood Pressure 102/51 L Pulse Oximetry 100 Intake & Output 12/17/17 12/18/17 12/18/17 18:59 06:59 18:59 Intake Total 350 / 350 Balance 350 / 350 Weight 53.524 kg 62.9 kg Intake: IV 350 / 350 Levophed-Dextrose 4 mg/250 ml 250 / 250 Drip 4 mg In 250 ml @ 2 MCG/MIN 7.5 mls/hr IV.SIG TITRATE PRN Rx#:[id number] Rocephin Inj 1,000 MG In NS Inj 100 / 100 100 ML @ 200 mls/hr IV.SIG ONCE ONE Rx#:[id number] Other: # Incontinent Voids 5 Weight On Admission 62.9 kg Narrative: Physical Examination GENERAL: Patient is a thin, well-developed elderly female, awake and alert, not in respiratory distress. She is orally intubated SKIN: Cool and dry. No generalized rash, no ecchymoses and no evidence of embolic lesions. HEAD: Atraumatic. Normocephalic. No temporal wasting, or tenderness. EYES: [place] conjunctiva. No petechia or hemorrhage. Pupils equal, round and reactive to light. Extraocular movements full and intact. No scleral icterus. No injection or drainage. EARS, NOSE AND THROAT: Nose without bleeding or purulent nasal discharge. No sinus tenderness. Mucous membranes pink and moist. Orally intubated NECK: Trachea midline. Supple and not tender, no meningeal signs CARDIOVASCULAR: Regular rate and rhythm. No murmurs, rubs or gallops heard RESPIRATORY: Clear to auscultation. Breath sounds equal bilaterally. No rales , wheezing or rhonchi ABDOMEN: Soft, non-tender, nondistended. Bowel sounds present and normoactive. No guarding. No rebound. No organomegaly. EXTREMITIES: No clubbing, cyanosis, or edema. No joint effusion, has good ROM. No calf tenderness. Well perfused and warm. NEUROLOGICAL: Awake and alert. No facial asymmetry. Motor grossly within normal limits. PSYCHIATRIC: cooperative. LINE: No evidence of infection Results - Labs CBC & Chem 7: 12/18/17 04:15 12/18/17 04:15 Labs: Laboratory Results - last 24 hr 12/17/17 12/17/17 12/17/17 14:50 14:50 14:50 WBC 0.5 L RBC 4.33 Hgb 11.7 Hct 36.7 MCV 84.7 MCH 27.0 MCHC 31.9 L RDW 15.6 Plt Count 106 L MPV 8.7 Prelim Diff (Auto) Slide review pending Neut % (Auto) 82.3 H Lymph % (Auto) 15.6 [place] % (Auto) 0.3 Eos % (Auto) 1.2 Baso % (Auto) 0.6 Neut # (Auto) 0.4 L* Lymph # (Auto) 0.1 L [place] # (Auto) 0.0 Eos # (Auto) 0.0 Baso # (Auto) 0.0 WBC Differential Manual diff final Seg Neuts % (Manual) 72 H Band Neuts % (Manual) 8 H Lymphocytes % (Manual) 20 Abs Neuts (Manual) 0.4 L* Differential Comment . Platelet Estimate Low L Platelet Morphology Normal Ovalocytes 1+ H Acanthocytes (Spur) 1+ H PT INR APTT Puncture Site Patient Temperature O2 Saturation ABG pH ABG pCO2 ABG pO2 ABG HCO3 ABG O2 Content ABG Base Excess ABG Methemoglobin Pablo Test Hemoglobin Carboxyhemoglobin O2 Delivery Device Liter Flow Vent Setting Inspired O2 Critical Value Sodium 144 Potassium 4.1 Chloride 112 H Carbon Dioxide 22.5 Anion Gap 10 BUN 16 Creatinine 0.68 Estimated GFR 83 L POC Glucose Random Glucose 80 Lactic Acid Calcium 8.2 L Prot Corrected Calcium Phosphorus Magnesium 1.5 Total Bilirubin 1.9 H AST 30 ALT 23 Alkaline Phosphatase 107 Total Creatine Kinase CK-MB (CK-2) CK-MB (CK-2) % Troponin I Total Protein 5.9 L Albumin 3.3 L TSH Cortisol Urine Color Urine Clarity Urine pH Ur Specific Valentine Urine Protein Urine Glucose (UA) Urine Ketones Urine Occult Blood Urine Nitrate Urine Bilirubin Urine Urobilinogen Ur Leukocyte Esterase Urine RBC Urine WBC Micro UA Comment Urine Culture Comments 12/17/17 12/17/17 12/17/17 14:50 15:35 19:15 WBC RBC Hgb Hct MCV MCH MCHC RDW Plt Count MPV Prelim Diff (Auto) Neut % (Auto) Lymph % (Auto) [place] % (Auto) Eos % (Auto) Baso % (Auto) Neut # (Auto) Lymph # (Auto) [place] # (Auto) Eos # (Auto) Baso # (Auto) WBC Differential Seg Neuts % (Manual) Band Neuts % (Manual) Lymphocytes % (Manual) Abs Neuts (Manual) Differential Comment Platelet Estimate Platelet Morphology Ovalocytes Acanthocytes (Spur) PT INR APTT Puncture Site Patient Temperature O2 Saturation ABG pH ABG pCO2 ABG pO2 ABG HCO3 ABG O2 Content ABG Base Excess ABG Methemoglobin Pablo Test Hemoglobin Carboxyhemoglobin O2 Delivery Device Liter Flow Vent Setting Inspired O2 Critical Value Sodium Potassium Chloride Carbon Dioxide Anion Gap BUN Creatinine Estimated GFR POC Glucose Random Glucose Lactic Acid 2.7 H 3.8 H Calcium Prot Corrected Calcium Phosphorus Magnesium Total Bilirubin AST ALT Alkaline Phosphatase Total Creatine Kinase CK-MB (CK-2) CK-MB (CK-2) % Troponin I Total Protein Albumin TSH Cortisol Urine Color Red H Urine Clarity Marked H Urine pH 7.0 Ur Specific Valentine 1.009 Urine Protein 500 or greater Urine Glucose (UA) Negative Urine Ketones Negative Urine Occult Blood Small H Urine Nitrate Positive H Urine Bilirubin Negative Urine Urobilinogen Less than 2 Ur Leukocyte Esterase Negative Urine RBC Urine WBC Micro UA Comment Culture indicated Urine Culture Comments Culture indicated 12/17/17 12/17/17 12/17/17 21:00 23:20 23:20 WBC RBC Hgb Hct MCV MCH MCHC RDW Plt Count MPV Prelim Diff (Auto) Neut % (Auto) Lymph % (Auto) [place] % (Auto) Eos % (Auto) Baso % (Auto) Neut # (Auto) Lymph # (Auto) [place] # (Auto) Eos # (Auto) Baso # (Auto) WBC Differential Seg Neuts % (Manual) Band Neuts % (Manual) Lymphocytes % (Manual) Abs Neuts (Manual) Differential Comment Platelet Estimate Platelet Morphology Ovalocytes Acanthocytes (Spur) PT INR APTT Puncture Site Right radial Patient Temperature 98.6 O2 Saturation 89 L* ABG pH 7.36 L ABG pCO2 32 L ABG pO2 62 ABG HCO3 17 L ABG O2 Content 11.0 L ABG Base Excess -7.2 L ABG Methemoglobin 0.8 Pablo Test Present Hemoglobin 8.8 L Carboxyhemoglobin 1.2 O2 Delivery Device Nasal cannula Liter Flow 3.00 Vent Setting Inspired O2 21 Critical Value Yes Sodium Potassium Chloride Carbon Dioxide Anion Gap BUN Creatinine Estimated GFR POC Glucose Random Glucose 115 H Lactic Acid 1.6 Calcium Prot Corrected Calcium Phosphorus Magnesium Total Bilirubin AST ALT Alkaline Phosphatase Total Creatine Kinase CK-MB (CK-2) CK-MB (CK-2) % Troponin I 0.39 H Total Protein Albumin TSH 2.050 Cortisol Urine Color Urine Clarity Urine pH Ur Specific Valentine Urine Protein Urine Glucose (UA) Urine Ketones Urine Occult Blood Urine Nitrate Urine Bilirubin Urine Urobilinogen Ur Leukocyte Esterase Urine RBC Urine WBC Micro UA Comment Urine Culture Comments 12/18/17 12/18/17 12/18/17 01:47 04:15 04:15 WBC 13.3 H D RBC 3.42 L Hgb 9.4 L D Hct 29.1 L MCV 84.9 MCH 27.4 MCHC 32.3 RDW 15.7 Plt Count 73 L D MPV 8.8 Prelim Diff (Auto) Slide review pending Neut % (Auto) 94.7 H Lymph % (Auto) 4.3 L [place] % (Auto) 0.9 Eos % (Auto) 0.0 Baso % (Auto) 0.1 Neut # (Auto) 12.6 H Lymph # (Auto) 0.6 L [place] # (Auto) 0.1 Eos # (Auto) 0.0 Baso # (Auto) 0.0 WBC Differential Manual diff final Seg Neuts % (Manual) 74 H Band Neuts % (Manual) 24 H Lymphocytes % (Manual) 2 L Abs Neuts (Manual) 13.0 H Differential Comment . Platelet Estimate Low L Platelet Morphology Normal Ovalocytes 1+ H Acanthocytes (Spur) PT INR APTT Puncture Site Patient Temperature O2 Saturation ABG pH ABG pCO2 ABG pO2 ABG HCO3 ABG O2 Content ABG Base Excess ABG Methemoglobin Pablo Test Hemoglobin Carboxyhemoglobin O2 Delivery Device Liter Flow Vent Setting Inspired O2 Critical Value Sodium Potassium Chloride Carbon Dioxide Anion Gap BUN Creatinine Estimated GFR POC Glucose 122 H Random Glucose Lactic Acid 3.7 H Calcium Prot Corrected Calcium Phosphorus Magnesium Total Bilirubin AST ALT Alkaline Phosphatase Total Creatine Kinase CK-MB (CK-2) CK-MB (CK-2) % Troponin I Total Protein Albumin TSH Cortisol Urine Color Urine Clarity Urine pH Ur Specific Valentine Urine Protein Urine Glucose (UA) Urine Ketones Urine Occult Blood Urine Nitrate Urine Bilirubin Urine Urobilinogen Ur Leukocyte Esterase Urine RBC Urine WBC Micro UA Comment Urine Culture Comments 12/18/17 12/18/17 12/18/17 04:15 04:15 04:15 WBC RBC Hgb Hct MCV MCH MCHC RDW Plt Count MPV Prelim Diff (Auto) Neut % (Auto) Lymph % (Auto) [place] % (Auto) Eos % (Auto) Baso % (Auto) Neut # (Auto) Lymph # (Auto) [place] # (Auto) Eos # (Auto) Baso # (Auto) WBC Differential Seg Neuts % (Manual) Band Neuts % (Manual) Lymphocytes % (Manual) Abs Neuts (Manual) Differential Comment Platelet Estimate Platelet Morphology Ovalocytes Acanthocytes (Spur) PT 15.4 H INR 1.5 APTT 41.0 H Puncture Site Patient Temperature O2 Saturation ABG pH ABG pCO2 ABG pO2 ABG HCO3 ABG O2 Content ABG Base Excess ABG Methemoglobin Pablo Test Hemoglobin Carboxyhemoglobin O2 Delivery Device Liter Flow Vent Setting Inspired O2 Critical Value Sodium 143 Potassium 3.6 Chloride 114 H Carbon Dioxide 15.3 L Anion Gap 14 BUN 26 H Creatinine 1.41 H Estimated GFR 36 L POC Glucose Random Glucose 142 H Lactic Acid Calcium 6.7 L* D Prot Corrected Calcium 8.1 L Phosphorus 2.5 Magnesium 1.3 L Total Bilirubin 1.5 H AST 35 ALT 23 Alkaline Phosphatase 72 Total Creatine Kinase 424 H CK-MB (CK-2) 8.0 H CK-MB (CK-2) % 1.9 Troponin I Total Protein 4.4 L D Albumin 2.2 L D TSH Cortisol 46.3 Urine Color Urine Clarity Urine pH Ur Specific Valentine Urine Protein Urine Glucose (UA) Urine Ketones Urine Occult Blood Urine Nitrate Urine Bilirubin Urine Urobilinogen Ur Leukocyte Esterase Urine RBC Urine WBC Micro UA Comment Urine Culture Comments 12/18/17 12/18/17 12/18/17 04:33 04:52 05:43 WBC RBC Hgb Hct MCV MCH MCHC RDW Plt Count MPV Prelim Diff (Auto) Neut % (Auto) Lymph % (Auto) [place] % (Auto) Eos % (Auto) Baso % (Auto) Neut # (Auto) Lymph # (Auto) [place] # (Auto) Eos # (Auto) Baso # (Auto) WBC Differential Seg Neuts % (Manual) Band Neuts % (Manual) Lymphocytes % (Manual) Abs Neuts (Manual) Differential Comment Platelet Estimate Platelet Morphology Ovalocytes Acanthocytes (Spur) PT INR APTT Puncture Site Right radial Art line Patient Temperature 98.6 98.6 O2 Saturation 93 97 ABG pH 7.26 L* 7.24 L* ABG pCO2 34 L 38 ABG pO2 82 188 H ABG HCO3 15 L* 16 L* ABG O2 Content 12.0 12.9 ABG Base Excess -11.2 L -10.5 L ABG Methemoglobin 1.5 1.8 Pablo Test Present Hemoglobin 9.1 L 9.2 L Carboxyhemoglobin 0.5 0.5 O2 Delivery Device Non-rebreathing mask Vent Liter Flow 15.00 Vent Setting Prvc/ac Inspired O2 100 100 Critical Value Yes Yes Sodium Potassium Chloride Carbon Dioxide Anion Gap BUN Creatinine Estimated GFR POC Glucose 130 H Random Glucose Lactic Acid Calcium Prot Corrected Calcium Phosphorus Magnesium Total Bilirubin AST ALT Alkaline Phosphatase Total Creatine Kinase CK-MB (CK-2) CK-MB (CK-2) % Troponin I Total Protein Albumin TSH Cortisol Urine Color Urine Clarity Urine pH Ur Specific [place] Urine Protein Urine Glucose (UA) Urine Ketones Urine Occult Blood Urine Nitrate Urine Bilirubin Urine Urobilinogen Ur Leukocyte Esterase Urine RBC Urine WBC Micro UA Comment Urine Culture Comments 12/18/17 07:55 WBC RBC Hgb Hct MCV MCH MCHC RDW Plt Count MPV Prelim Diff (Auto) Neut % (Auto) Lymph % (Auto) [place] % (Auto) Eos % (Auto) Baso % (Auto) Neut # (Auto) Lymph # (Auto) [place] # (Auto) Eos # (Auto) Baso # (Auto) WBC Differential Seg Neuts % (Manual) Band Neuts % (Manual) Lymphocytes % (Manual) Abs Neuts (Manual) Differential Comment Platelet Estimate Platelet Morphology Ovalocytes Acanthocytes (Spur) PT INR APTT Puncture Site Art line Patient Temperature 98.6 O2 Saturation 97 ABG pH 7.27 L* ABG pCO2 34 L ABG pO2 190 H ABG HCO3 15 L* ABG O2 Content 13.7 ABG Base Excess -10.3 L ABG Methemoglobin 1.7 Pablo Test Hemoglobin 9.7 L Carboxyhemoglobin 0.4 O2 Delivery Device Liter Flow Vent Setting Prvc/ac Inspired O2 100 Critical Value Yes Sodium Potassium Chloride Carbon Dioxide Anion Gap BUN Creatinine Estimated GFR POC Glucose Random Glucose Lactic Acid Calcium Prot Corrected Calcium Phosphorus Magnesium Total Bilirubin AST ALT Alkaline Phosphatase Total Creatine Kinase CK-MB (CK-2) CK-MB (CK-2) % Troponin I Total Protein Albumin TSH Cortisol Urine Color Urine Clarity Urine pH Ur Specific Valentine Urine Protein Urine Glucose (UA) Urine Ketones Urine Occult Blood Urine Nitrate Urine Bilirubin Urine Urobilinogen Ur Leukocyte Esterase Urine RBC Urine WBC Micro UA Comment Urine Culture Comments - Imaging Impressions Chest X-Ray 12/17/17 00:00 CONCLUSION: New right IJ central venous catheter with tip at the atriocaval junction. No perceptible pneumothorax. Chest X-Ray 12/17/17 14:48 CONCLUSION: COPD. Minimal atelectasis left lung base. No evidence of consolidating airspace disease. Abdomen/Pelvis CT 12/17/17 15:01 CONCLUSION: Good position of double-J stent. There is no evidence of abscess. Chest X-Ray 12/18/17 00:00 CONCLUSION: 1. ETT in good position. NGT beyond the GE junction. Stable right IJ central line. 2. Positive fluid balance with persistent bilateral lower lobe airspace disease. Assessment and Plan - Plan Impression Sepsis with shock on presentation after urologic procedure, source (fever, shock, acidosis, renal failure, resp failure) UTI, complicated has stones, has stent, S/P retrieval of stone, no hydro on CT A/P, no abscess Initial neutropenia due to severe sepsis, now with leukocytosis Acidosis due to sepsis renal insufficiency due to sepsis and shock Thrombocytopenia due to sepsis, ?DIC Respiratory failure Recommendation Follow C/S Check DIC screen IV Zosyn, to have broader GNR coverage Continue Vancomycin while C/S pending Monitor progress Will determine course of Abx once C/S available I will follow along with you Thank you for this consultation I will be off December 19- Other ID MD covering in my absence Spoke with family
--- NOTE | 2017-12-18 09:59 | P.PNCC ---
Subjective Subjective Remarks/Hospital Course: 12/17: This is an 82-year-old female. She is full code. Date of admission 12/17/2017. Past medical history includes glaucoma, atrial fibrillation currently normal sinus rhythm on apixaban, recurrent nephrolithiasis. She was recently hospitalized and dilated for hospital for a kidney stone. She had a left-sided stent placed at that time. She was placed on apixaban due to high chads vasc2 score. She has been off this 5 mg twice daily for the procedure today. Today, patient underwent a cystoscopy, left stent removal, left ureteroscopic he with 6 basket retrieval/lithotripsy/left retrograde with left double-J stent placement by . Postprocedure, patient became hypotensive is transferred emergency to [facility]. CT abdomen/pelvis revealed no abnormality findings. Patient is double-J stent placed the left. Patient is received ceftriaxone is currently on cefepime. Patient received a total of 3 L normal saline. Despite this patient came hypotensive requiring norepinephrine drip. We are asked to admit patient. Stent placed in place patient is currently awake and alert denies pain. 12/18: Patient was intubated early this morning for worsening respiratory status and metabolic acidosis and placed on mechanical ventilation. On Levophed at 30 mics per minute as well as low-dose vasopressin with systolic blood pressure in the 80s. Awake and alert, orally intubated on mechanical ventilation. Awake, following commands. Denies any pain by nodding her head. I ordered a Vance catheter to be placed to monitor urine output as well as in view of hematuria. Objective Vital Signs / I&O: Vital Signs 12/17/17 14:48 12/17/17 15:00 12/17/17 15:32 Temperature 102.9 F H Pulse Rate 132 H 124 H Respiratory Rate 20 20 Blood Pressure 109/49 L 108/53 L Pulse Oximetry 95 94 L 95 12/17/17 17:28 12/17/17 21:07 12/17/17 22:30 Temperature 97.9 F 98.1 F Pulse Rate 96 H 95 H 93 H Respiratory Rate 16 15 20 Blood Pressure 89/44 L 82/43 L Pulse Oximetry 98 95 12/17/17 22:41 12/17/17 23:00 12/17/17 23:30 Temperature Pulse Rate 86 86 Respiratory Rate 18 20 Blood Pressure 82/43 L 74/47 L 79/49 L Pulse Oximetry 96 95 93 L 12/17/17 23:44 12/18/17 00:00 12/18/17 00:38 Temperature Pulse Rate 82 84 84 Respiratory Rate 19 20 17 Blood Pressure 80/48 L 82/49 L Pulse Oximetry 94 L 95 12/18/17 03:43 12/18/17 04:00 12/18/17 05:20 Temperature 97.5 F L Pulse Rate 84 91 H Respiratory Rate 22 32 H 15 Blood Pressure 95/50 L Pulse Oximetry 89 L 100 12/18/17 05:59 12/18/17 07:00 12/18/17 08:28 Temperature Pulse Rate 104 H 87 Respiratory Rate 20 20 Blood Pressure 102/51 L Pulse Oximetry 100 Intake & Output 12/17/17 12/18/17 12/18/17 18:59 06:59 18:59 Intake Total 350 / 350 Balance 350 / 350 Weight 53.524 kg 62.9 kg Intake: IV 350 / 350 Levophed-Dextrose 4 mg/250 ml 250 / 250 Drip 4 mg In 250 ml @ 2 MCG/MIN 7.5 mls/hr IV.SIG TITRATE PRN Rx#:[id number] Rocephin Inj 1,000 MG In NS Inj 100 / 100 100 ML @ 200 mls/hr IV.SIG ONCE ONE Rx#:[id number] Other: # Incontinent Voids 5 Weight On Admission 62.9 kg Result Diagrams: 12/18/17 04:15 12/18/17 04:15 Other Results: Laboratory Results - last 24 hr 12/17/17 12/17/17 12/17/17 14:50 14:50 14:50 WBC 0.5 L RBC 4.33 Hgb 11.7 Hct 36.7 MCV 84.7 MCH 27.0 MCHC 31.9 L RDW 15.6 Plt Count 106 L MPV 8.7 Prelim Diff (Auto) Slide review pending Neut % (Auto) 82.3 H Lymph % (Auto) 15.6 Parmer % (Auto) 0.3 Eos % (Auto) 1.2 Baso % (Auto) 0.6 Neut # (Auto) 0.4 L* Lymph # (Auto) 0.1 L Parmer # (Auto) 0.0 Eos # (Auto) 0.0 Baso # (Auto) 0.0 WBC Differential Manual diff final Seg Neuts % (Manual) 72 H Band Neuts % (Manual) 8 H Lymphocytes % (Manual) 20 Abs Neuts (Manual) 0.4 L* Differential Comment . Platelet Estimate Low L Platelet Morphology Normal Ovalocytes 1+ H Acanthocytes (Spur) 1+ H PT INR APTT Puncture Site Patient Temperature O2 Saturation ABG pH ABG pCO2 ABG pO2 ABG HCO3 ABG O2 Content ABG Base Excess ABG Methemoglobin Pablo Test Hemoglobin Carboxyhemoglobin O2 Delivery Device Liter Flow Vent Setting Inspired O2 Critical Value Sodium 144 Potassium 4.1 Chloride 112 H Carbon Dioxide 22.5 Anion Gap 10 BUN 16 Creatinine 0.68 Estimated GFR 83 L POC Glucose Random Glucose 80 Lactic Acid Calcium 8.2 L Prot Corrected Calcium Phosphorus Magnesium 1.5 Total Bilirubin 1.9 H AST 30 ALT 23 Alkaline Phosphatase 107 Total Creatine Kinase CK-MB (CK-2) CK-MB (CK-2) % Troponin I Total Protein 5.9 L Albumin 3.3 L TSH Cortisol Urine Color Urine Clarity Urine pH Ur Specific Bryan Urine Protein Urine Glucose (UA) Urine Ketones Urine Occult Blood Urine Nitrate Urine Bilirubin Urine Urobilinogen Ur Leukocyte Esterase Urine RBC Urine WBC Micro UA Comment Urine Culture Comments 12/17/17 12/17/17 12/17/17 14:50 15:35 19:15 WBC RBC Hgb Hct MCV MCH MCHC RDW Plt Count MPV Prelim Diff (Auto) Neut % (Auto) Lymph % (Auto) Parmer % (Auto) Eos % (Auto) Baso % (Auto) Neut # (Auto) Lymph # (Auto) Parmer # (Auto) Eos # (Auto) Baso # (Auto) WBC Differential Seg Neuts % (Manual) Band Neuts % (Manual) Lymphocytes % (Manual) Abs Neuts (Manual) Differential Comment Platelet Estimate Platelet Morphology Ovalocytes Acanthocytes (Spur) PT INR APTT Puncture Site Patient Temperature O2 Saturation ABG pH ABG pCO2 ABG pO2 ABG HCO3 ABG O2 Content ABG Base Excess ABG Methemoglobin Pablo Test Hemoglobin Carboxyhemoglobin O2 Delivery Device Liter Flow Vent Setting Inspired O2 Critical Value Sodium Potassium Chloride Carbon Dioxide Anion Gap BUN Creatinine Estimated GFR POC Glucose Random Glucose Lactic Acid 2.7 H 3.8 H Calcium Prot Corrected Calcium Phosphorus Magnesium Total Bilirubin AST ALT Alkaline Phosphatase Total Creatine Kinase CK-MB (CK-2) CK-MB (CK-2) % Troponin I Total Protein Albumin TSH Cortisol Urine Color Red H Urine Clarity Marked H Urine pH 7.0 Ur Specific Bryan 1.009 Urine Protein 500 or greater Urine Glucose (UA) Negative Urine Ketones Negative Urine Occult Blood Small H Urine Nitrate Positive H Urine Bilirubin Negative Urine Urobilinogen Less than 2 Ur Leukocyte Esterase Negative Urine RBC Urine WBC Micro UA Comment Culture indicated Urine Culture Comments Culture indicated 12/17/17 12/17/17 12/17/17 21:00 23:20 23:20 WBC RBC Hgb Hct MCV MCH MCHC RDW Plt Count MPV Prelim Diff (Auto) Neut % (Auto) Lymph % (Auto) Parmer % (Auto) Eos % (Auto) Baso % (Auto) Neut # (Auto) Lymph # (Auto) Parmer # (Auto) Eos # (Auto) Baso # (Auto) WBC Differential Seg Neuts % (Manual) Band Neuts % (Manual) Lymphocytes % (Manual) Abs Neuts (Manual) Differential Comment Platelet Estimate Platelet Morphology Ovalocytes Acanthocytes (Spur) PT INR APTT Puncture Site Right radial Patient Temperature 98.6 O2 Saturation 89 L* ABG pH 7.36 L ABG pCO2 32 L ABG pO2 62 ABG HCO3 17 L ABG O2 Content 11.0 L ABG Base Excess -7.2 L ABG Methemoglobin 0.8 Pablo Test Present Hemoglobin 8.8 L Carboxyhemoglobin 1.2 O2 Delivery Device Nasal cannula Liter Flow 3.00 Vent Setting Inspired O2 21 Critical Value Yes Sodium Potassium Chloride Carbon Dioxide Anion Gap BUN Creatinine Estimated GFR POC Glucose Random Glucose 115 H Lactic Acid 1.6 Calcium Prot Corrected Calcium Phosphorus Magnesium Total Bilirubin AST ALT Alkaline Phosphatase Total Creatine Kinase CK-MB (CK-2) CK-MB (CK-2) % Troponin I 0.39 H Total Protein Albumin TSH 2.050 Cortisol Urine Color Urine Clarity Urine pH Ur Specific Bryan Urine Protein Urine Glucose (UA) Urine Ketones Urine Occult Blood Urine Nitrate Urine Bilirubin Urine Urobilinogen Ur Leukocyte Esterase Urine RBC Urine WBC Micro UA Comment Urine Culture Comments 12/18/17 12/18/17 12/18/17 01:47 04:15 04:15 WBC 13.3 H D RBC 3.42 L Hgb 9.4 L D Hct 29.1 L MCV 84.9 MCH 27.4 MCHC 32.3 RDW 15.7 Plt Count 73 L D MPV 8.8 Prelim Diff (Auto) Slide review pending Neut % (Auto) 94.7 H Lymph % (Auto) 4.3 L Parmer % (Auto) 0.9 Eos % (Auto) 0.0 Baso % (Auto) 0.1 Neut # (Auto) 12.6 H Lymph # (Auto) 0.6 L Parmer # (Auto) 0.1 Eos # (Auto) 0.0 Baso # (Auto) 0.0 WBC Differential Manual diff final Seg Neuts % (Manual) 74 H Band Neuts % (Manual) 24 H Lymphocytes % (Manual) 2 L Abs Neuts (Manual) 13.0 H Differential Comment . Platelet Estimate Low L Platelet Morphology Normal Ovalocytes 1+ H Acanthocytes (Spur) PT INR APTT Puncture Site Patient Temperature O2 Saturation ABG pH ABG pCO2 ABG pO2 ABG HCO3 ABG O2 Content ABG Base Excess ABG Methemoglobin Pablo Test Hemoglobin Carboxyhemoglobin O2 Delivery Device Liter Flow Vent Setting Inspired O2 Critical Value Sodium Potassium Chloride Carbon Dioxide Anion Gap BUN Creatinine Estimated GFR POC Glucose 122 H Random Glucose Lactic Acid 3.7 H Calcium Prot Corrected Calcium Phosphorus Magnesium Total Bilirubin AST ALT Alkaline Phosphatase Total Creatine Kinase CK-MB (CK-2) CK-MB (CK-2) % Troponin I Total Protein Albumin TSH Cortisol Urine Color Urine Clarity Urine pH Ur Specific Bryan Urine Protein Urine Glucose (UA) Urine Ketones Urine Occult Blood Urine Nitrate Urine Bilirubin Urine Urobilinogen Ur Leukocyte Esterase Urine RBC Urine WBC Micro UA Comment Urine Culture Comments 12/18/17 12/18/17 12/18/17 04:15 04:15 04:15 WBC RBC Hgb Hct MCV MCH MCHC RDW Plt Count MPV Prelim Diff (Auto) Neut % (Auto) Lymph % (Auto) Parmer % (Auto) Eos % (Auto) Baso % (Auto) Neut # (Auto) Lymph # (Auto) Parmer # (Auto) Eos # (Auto) Baso # (Auto) WBC Differential Seg Neuts % (Manual) Band Neuts % (Manual) Lymphocytes % (Manual) Abs Neuts (Manual) Differential Comment Platelet Estimate Platelet Morphology Ovalocytes Acanthocytes (Spur) PT 15.4 H INR 1.5 APTT 41.0 H Puncture Site Patient Temperature O2 Saturation ABG pH ABG pCO2 ABG pO2 ABG HCO3 ABG O2 Content ABG Base Excess ABG Methemoglobin Pablo Test Hemoglobin Carboxyhemoglobin O2 Delivery Device Liter Flow Vent Setting Inspired O2 Critical Value Sodium 143 Potassium 3.6 Chloride 114 H Carbon Dioxide 15.3 L Anion Gap 14 BUN 26 H Creatinine 1.41 H Estimated GFR 36 L POC Glucose Random Glucose 142 H Lactic Acid Calcium 6.7 L* D Prot Corrected Calcium 8.1 L Phosphorus 2.5 Magnesium 1.3 L Total Bilirubin 1.5 H AST 35 ALT 23 Alkaline Phosphatase 72 Total Creatine Kinase 424 H CK-MB (CK-2) 8.0 H CK-MB (CK-2) % 1.9 Troponin I Total Protein 4.4 L D Albumin 2.2 L D TSH Cortisol 46.3 Urine Color Urine Clarity Urine pH Ur Specific Bryan Urine Protein Urine Glucose (UA) Urine Ketones Urine Occult Blood Urine Nitrate Urine Bilirubin Urine Urobilinogen Ur Leukocyte Esterase Urine RBC Urine WBC Micro UA Comment Urine Culture Comments 12/18/17 12/18/17 12/18/17 04:33 04:52 05:43 WBC RBC Hgb Hct MCV MCH MCHC RDW Plt Count MPV Prelim Diff (Auto) Neut % (Auto) Lymph % (Auto) Parmer % (Auto) Eos % (Auto) Baso % (Auto) Neut # (Auto) Lymph # (Auto) Parmer # (Auto) Eos # (Auto) Baso # (Auto) WBC Differential Seg Neuts % (Manual) Band Neuts % (Manual) Lymphocytes % (Manual) Abs Neuts (Manual) Differential Comment Platelet Estimate Platelet Morphology Ovalocytes Acanthocytes (Spur) PT INR APTT Puncture Site Right radial Art line Patient Temperature 98.6 98.6 O2 Saturation 93 97 ABG pH 7.26 L* 7.24 L* ABG pCO2 34 L 38 ABG pO2 82 188 H ABG HCO3 15 L* 16 L* ABG O2 Content 12.0 12.9 ABG Base Excess -11.2 L -10.5 L ABG Methemoglobin 1.5 1.8 Pablo Test Present Hemoglobin 9.1 L 9.2 L Carboxyhemoglobin 0.5 0.5 O2 Delivery Device Non-rebreathing mask Vent Liter Flow 15.00 Vent Setting Prvc/ac Inspired O2 100 100 Critical Value Yes Yes Sodium Potassium Chloride Carbon Dioxide Anion Gap BUN Creatinine Estimated GFR POC Glucose 130 H Random Glucose Lactic Acid Calcium Prot Corrected Calcium Phosphorus Magnesium Total Bilirubin AST ALT Alkaline Phosphatase Total Creatine Kinase CK-MB (CK-2) CK-MB (CK-2) % Troponin I Total Protein Albumin TSH Cortisol Urine Color Urine Clarity Urine pH Ur Specific Bryan Urine Protein Urine Glucose (UA) Urine Ketones Urine Occult Blood Urine Nitrate Urine Bilirubin Urine Urobilinogen Ur Leukocyte Esterase Urine RBC Urine WBC Micro UA Comment Urine Culture Comments 12/18/17 07:55 WBC RBC Hgb Hct MCV MCH MCHC RDW Plt Count MPV Prelim Diff (Auto) Neut % (Auto) Lymph % (Auto) Parmer % (Auto) Eos % (Auto) Baso % (Auto) Neut # (Auto) Lymph # (Auto) Parmer # (Auto) Eos # (Auto) Baso # (Auto) WBC Differential Seg Neuts % (Manual) Band Neuts % (Manual) Lymphocytes % (Manual) Abs Neuts (Manual) Differential Comment Platelet Estimate Platelet Morphology Ovalocytes Acanthocytes (Spur) PT INR APTT Puncture Site Art line Patient Temperature 98.6 O2 Saturation 97 ABG pH 7.27 L* ABG pCO2 34 L ABG pO2 190 H ABG HCO3 15 L* ABG O2 Content 13.7 ABG Base Excess -10.3 L ABG Methemoglobin 1.7 Pablo Test Hemoglobin 9.7 L Carboxyhemoglobin 0.4 O2 Delivery Device Liter Flow Vent Setting Prvc/ac Inspired O2 100 Critical Value Yes Sodium Potassium Chloride Carbon Dioxide Anion Gap BUN Creatinine Estimated GFR POC Glucose Random Glucose Lactic Acid Calcium Prot Corrected Calcium Phosphorus Magnesium Total Bilirubin AST ALT Alkaline Phosphatase Total Creatine Kinase CK-MB (CK-2) CK-MB (CK-2) % Troponin I Total Protein Albumin TSH Cortisol Urine Color Urine Clarity Urine pH Ur Specific Bryan Urine Protein Urine Glucose (UA) Urine Ketones Urine Occult Blood Urine Nitrate Urine Bilirubin Urine Urobilinogen Ur Leukocyte Esterase Urine RBC Urine WBC Micro UA Comment Urine Culture Comments Imaging: ITS Impressions Chest X-Ray 12/17/17 00:00 CONCLUSION: New right IJ central venous catheter with tip at the atriocaval junction. No perceptible pneumothorax. Chest X-Ray 12/17/17 14:48 CONCLUSION: COPD. Minimal atelectasis left lung base. No evidence of consolidating airspace disease. Abdomen/Pelvis CT 12/17/17 15:01 CONCLUSION: Good position of double-J stent. There is no evidence of abscess. Chest X-Ray 12/18/17 00:00 CONCLUSION: 1. ETT in good position. NGT beyond the GE junction. Stable right IJ central line. 2. Positive fluid balance with persistent bilateral lower lobe airspace disease. Objective Remarks: HEENT/ Neuro: Awake and alert, following commands, orally intubated, Pallor present, no icterus, tongue/ mucosa moist Neck: No JVD Chest/Pulm: on mech vent, good air entry bilaterally, no wheezing or crackles CVS: S1-S2 regular, no murmur GI/abdomen: soft, nontender, bowel sounds sluggish Extremities: warm bilaterally, no edema Assessment and Plan - Assessment and Plan Plan: Neuro/Psych: Glaucoma Medicine reconciliation currently in process for her glaucoma medications which she is on 4 according to son at bedside. Acetaminophen 650 mg by mouth every 6 hours as needed fever Hydrocodone/acetaminophen 5/325 1 tablet every 4 hours as needed pain 1 through 5 Morphine sulfate 2 mg IV every 2 hours as needed pain 6 or 10 CV: Septic shock Lactic acidosis History of atrial fibrillation currently normal sinus rhythm Received 4 L normal saline in ED. Serial lactates until cleared. Switched to bicarb drip in view of metabolic acidosis. 5% albumin every 8 hourly. Added stress dose steroids in view of refractory shock requiring high-dose pressors. Currently on norepinephrine at 30 mcg/min/vasopressin 0.04 U/min to maintain mean arterial pressure greater or equal to [address]-T changes in the anterior leads. Normal sinus rhythm. Normal AZ, QRS and QT intervals. Check CPK and troponin Resp: Acute respiratory failure on mechanical ventilation Continue mechanical ventilation, vent bundle, bronchodilators Not ready for weaning trials due to refractory shock requiring high-dose pressors and severe metabolic acidosis. GI: Elevated total bilirubin Hypoalbuminemia OG tube. Holding tube feeds in view of high doses of pressors with refractory shock currently. Will consider initiating trophic feeds if pressor requirements starts coming down. Pantoprazole for GI prophylaxis Docusate sodium/senna 1 tablet twice daily for bowel regimen CT abdomen/pelvis revealed no acute intra-abdominal findings. Double-J stent remains in place : Status post left renal stent retrieval with placement of double-J stent/ lithotripsy History of recurrent nephrolithiasis with lithotripsy Dr. Clayton did the procedure above. He does not come to this facility. Vance catheterization for accurate intake output. Urology consult requested for further evaluation in view of hematuria and recent urologic procedure causing septic shock. Endo: Sliding scale insulin if necessary to maintain euglycemia Check TSH and cortisol Renal: Creatinine currently within normal limits Monitor urine output Accurate I's and O's and recheck BMP in a.m. 12/18 Heme: Leukopenia with neutropenia Thrombocytopenia Monitor CBC daily. Follow trends. Neutropenic precautions No active bleeding at the present time. ID: Septic shock likely secondary to urinary tract infection Currently in vancomycin and cefepime ID consult requested Blood cultures 2, UA 12/17 pending Neutropenic precautions FEN: Hypomagnesia Replace electrolytes as clinically indicated per ICU electrolyte protocol MSK: PT evaluate and treat Access -Right IJ CVL placed in 12/17 Prophylaxis -GI -pantoprazole -DVT -SCD/heparin subcu 35 minutes critical care time excluding procedures
[2017-12-18] MEDS: Albumin Human 5% Inj 500 ML IV.SIG SCH ×2 (13:15→18:35)
[2017-12-18] MEDS: OPTH EACH EYE SCH ×3 (13:16→18:41)
[2017-12-18] MEDS: Dorzolamide 2% Opth Drops 10 ML Bottle EACH EYE SCH ×2 (13:16→20:58)
[2017-12-18] MEDS: PILOCARPINE 1% EACH EYE SCH ×3 (13:16→18:41)
[2017-12-18] MEDS: Piperacil/Tazo 3.375 GM Premix 50 ML IV.SIG SCH ×3 (13:17→21:00)
[2017-12-18] MEDS: Oral Hygiene Kit OROPHARYNG SCH ×3 (13:19→23:05)
[2017-12-18] MEDS: Artificial Tears Opth Drops 15 ML Bottle EACH EYE SCH ×2 (13:24→21:00)
[2017-12-18] MEDS: Vasopressin Inj 40 UNIT in Sodium Chlor 0.9% Inj 98 ML IV.CONT SCH (13:25)
[2017-12-18 14:14] LABS: Hematocrit 29.5 % (35.0-46.0); Hemoglobin 9.6 gm/dL (11.6-15.3); Mean Corpuscular HGB Conc 32.4 % (32.0-36.0); Mean Corpuscular Hemoglobin 27.3 pg (27.0-34.0); Mean Corpuscular Volume 84.3 fL (80.0-100.0); Mean Platelet Volume 10.1 fL (7.0-11.0); Platelet Count 65 th/mm3 (150-450); Red Cell Distribution Width 15.6 % (11.6-17.2); White Blood Count 14.9 th/mm3 (4.0-11.0)
[2017-12-18 14:38] LABS: Albumin 2.1 g/dL (3.4-5.0); Calcium 6.6 mg/dL (8.5-10.1); Carbon Dioxide 18.9 meq/L (21.0-32.0); Potassium 3.3 meq/L (3.5-5.1); Total Protein 4.4 g/dL (6.4-8.2)
--- NOTE | 2017-12-18 17:11 | ECHRPT ---
Indication: SOB CONCLUSIONS Normal left ventricular size. Wall thickness is normal. Normal wall motion. The left ventricular systolic function is low normal with an estimated ejection fraction of 50%. Mild mitral annular calcification is present. Trace mitral valve regurgitation. Mild aortic valve sclerosis is present. Trace aortic valve regurgitation. There is mild to moderate tricuspid valve regurgitation. The estimated pulmonary arterial pressure is 34 mmHg. BP: / HR: Rhythm: MEASUREMENTS (Male / Female) Normal Values Technical Quality: 2D ECHO LV Diastolic Diameter PLAX 4.2 cm 4.2 - 5.9 / 3.9 - 5.3 cm LV Systolic Diameter PLAX 3.3 cm IVS Diastolic Thickness 0.9 cm 0.6 - 1.0 / 0.6 - 0.9 cm LVPW Diastolic Thickness 0.6 cm 0.6 - 1.0 / 0.6 - 0.9 cm LV Relative Wall Thickness 0.4 RV Internal Dim ED PLAX 2.3 cm DOPPLER AV Peak Velocity 234.7 cm/s AV Peak Gradient 22.0 mmHg AV Mean Gradient 12.3 mmHg AV Velocity Time Integral 43.9 cm LVOT Peak Velocity 131.0 cm/s LVOT Peak Gradient 6.9 mmHg LVOT Velocity Time Integral 24.0 cm Mitral E Point Velocity 82.8 cm/s Mitral A Point Velocity 104.0 cm/s Mitral E to A Ratio 0.8 TR Peak Velocity 305.0 cm/s TR Peak Gradient 37.2 mmHg FINDINGS LEFT VENTRICLE Normal left ventricular size. Wall thickness is normal. Normal wall motion. The left ventricular systolic function is low normal with an estimated ejection fraction of 50%. RIGHT VENTRICLE Normal right ventricular size and systolic function. LEFT ATRIUM The left atrial size is normal. RIGHT ATRIUM The right atrial size is normal. ATRIAL SEPTUM Normal atrial septal thickness without atrial level shunting by limited color doppler interrogation. AORTA The aortic root and proximal ascending aorta are normal in size on limited imaging. MITRAL VALVE Mild mitral annular calcification is present. Trace mitral valve regurgitation. AORTIC VALVE Mild aortic valve sclerosis is present. Trace aortic valve regurgitation. TRICUSPID VALVE There is mild to moderate tricuspid valve regurgitation. The estimated pulmonary arterial pressure is 34 mmHg. PULMONARY VALVE The pulmonary valve is not well visualized. VESSELS The inferior vena cava is normal in size. PERICARDIUM No pericardial effusion. Damian Reyes MD (Electronically Signed) Final Date:18 December 2017 17:10
[2017-12-18] MEDS ORDERED: TRAVOPROST EACH EYE SCH (18:00)
[2017-12-18] MEDS ORDERED: BRIMONIDINE 0.1% EACH EYE SCH (18:00)
[2017-12-18] MEDS: Latanoprost 0.005% Opth Drops 2.5 ML Bottle EACH EYE SCH (18:42)
[2017-12-18] MEDS ORDERED: Vancomycin Inj 750 MG in Sodium Chlor 0.9% Inj 250 ML IV.SIG SCH (22:00)
[2017-12-18] MEDS: Potassium Chlor 20 mEq Premix 20 MEQ/100 ML PIGGYBACK IV.SIG PRN (22:56)
[2017-12-18] MEDS ORDERED: Amiodarone Inj 150 MG in Dextrose 5% in Water Inj 97 ML IV.SIG ONE ×2 (23:25)
[2017-12-19] MEDS: Insulin NovoLOG Aspart Correctional Sugar Inj SQ SCH ×4 (00:12→19:48)
[2017-12-19] MEDS: Albumin Human 5% Inj 500 ML IV.SIG SCH ×3 (00:44→20:00)
[2017-12-19] MEDS: Magnesium Sulfate Inj 2 GM in Sodium Chlor 0.9% Inj 96 ML IV.SIG PRN (00:44)
[2017-12-19] MEDS: Sodium Bicarbonate 8.4% Inj 150 MEQ in Dextrose 5% in Water Inj 850 ML IV.CONT SCH ×6 (00:45→19:47)
[2017-12-19] MEDS: Potassium Chlor 20 mEq Premix 20 MEQ/100 ML PIGGYBACK IV.SIG PRN (00:52)
[2017-12-19] MEDS: Chlorhexidine Gluconate 2% 1 Pack (2 Cloths) TOPICAL SCH (04:00)
[2017-12-19] MEDS: Piperacil/Tazo 3.375 GM Premix 50 ML IV.SIG SCH ×2 (04:00→10:32)
[2017-12-19] MEDS: Oral Hygiene Kit OROPHARYNG SCH ×3 (04:00→19:46)
[2017-12-19] MEDS ORDERED: Sodium Bicarbonate 8.4% Inj 50 MEQ/50 ML Syringe IV.PUSH ONE (05:00)
[2017-12-19] MEDS ORDERED: DOPamine 800 MG/500 ML Premix 800 MG/500 ML PLAST..BAG IV.CONT ONE (05:00)
[2017-12-19 05:08] LABS: Baso % (Auto) 0.1 % (0.0-2.0); Eos % (Auto) 0.1 % (0.0-4.0); Hematocrit 26.9 % (35.0-46.0); Hemoglobin 8.9 gm/dL (11.6-15.3); Lymph # (Auto) 0.5 th/mm3 (1.0-4.8); Lymph % (Auto) 2.1 % (9.0-44.0); Mean Corpuscular HGB Conc 33.3 % (32.0-36.0); Mean Corpuscular Hemoglobin 27.4 pg (27.0-34.0); Mean Corpuscular Volume 82.1 fL (80.0-100.0); Mean Platelet Volume 10.7 fL (7.0-11.0); Mono # (Auto) 0.2 th/mm3 (0.0-0.9); Neut # (Auto) 20.7 th/mm3 (1.8-7.7); Neut % (Auto) 96.7 % (16.0-70.0); Platelet Count 45 th/mm3 (150-450); Red Blood Count 3.27 mil/mm3 (4.00-5.30); Red Cell Distribution Width 15.2 % (11.6-17.2); White Blood Count 21.4 th/mm3 (4.0-11.0)
[2017-12-19 05:30] LABS: Albumin 2.8 g/dL (3.4-5.0); Calcium 6.1 mg/dL (8.5-10.1); Carbon Dioxide 19.5 meq/L (21.0-32.0); Magnesium 1.9 mg/dL (1.5-2.5); Potassium 3.2 meq/L (3.5-5.1); Total Protein 4.7 g/dL (6.4-8.2)
[2017-12-19] MEDS: Artificial Tears Opth Drops 15 ML Bottle EACH EYE SCH ×3 (05:49→22:34)
[2017-12-19 08:15] LABS: Lymphocytes 4 % (9-44); Metamyelocytes 7 % (0-1); Monocytes 3 % (0-8); Myelocytes 1 % (0-0)
[2017-12-19 08:19] LABS: Dohle Bodies Present; Ovalocytes 1+; Platelet Morphology Normal (Normal); Toxic Vacuolation Present
[2017-12-19] MEDS: Dorzolamide 2% Opth Drops 10 ML Bottle EACH EYE SCH (08:32)
[2017-12-19] MEDS: OPTH EACH EYE SCH ×3 (08:32→19:48)
[2017-12-19] MEDS: PILOCARPINE 1% EACH EYE SCH ×3 (08:32→19:48)
[2017-12-19] MEDS: Vasopressin Inj 40 UNIT in Sodium Chlor 0.9% Inj 98 ML IV.CONT SCH (08:33)
[2017-12-19] MEDS: Senna/Docusate Sodium 8.6/50 MG Tablet PO SCH ×2 (08:35→20:46)
[2017-12-19] MEDS: Chlorhexidine 0.12% Oral Kit 15 ML UDC OROPHARYNG SCH ×2 (08:55→20:46)
[2017-12-19] MEDS ORDERED: Vancomycin Inj 1,000 MG in Sodium Chlor 0.9% Inj 250 ML IV.SIG ONE (10:00)
--- NOTE | 2017-12-19 10:04 | P.PNCC ---
Subjective Subjective Remarks/Hospital Course: 12/17: This is an 82-year-old female. She is full code. Date of admission 12/17/2017. Past medical history includes glaucoma, atrial fibrillation currently normal sinus rhythm on apixaban, recurrent nephrolithiasis. She was recently hospitalized and dilated for hospital for a kidney stone. She had a left-sided stent placed at that time. She was placed on apixaban due to high chads vasc2 score. She has been off this 5 mg twice daily for the procedure today. Today, patient underwent a cystoscopy, left stent removal, left ureteroscopic he with 6 basket retrieval/lithotripsy/left retrograde with left double-J stent placement by . Postprocedure, patient became hypotensive is transferred emergency to [facility]. CT abdomen/pelvis revealed no abnormality findings. Patient is double-J stent placed the left. Patient is received ceftriaxone is currently on cefepime. Patient received a total of 3 L normal saline. Despite this patient came hypotensive requiring norepinephrine drip. We are asked to admit patient. Stent placed in place patient is currently awake and alert denies pain. 12/18: Patient was intubated early this morning for worsening respiratory status and metabolic acidosis and placed on mechanical ventilation. On Levophed at 30 mics per minute as well as low-dose vasopressin with systolic blood pressure in the 80s. Awake and alert, orally intubated on mechanical ventilation. Awake, following commands. Denies any pain by nodding her head. I ordered a Vance catheter to be placed to monitor urine output as well as in view of hematuria. 12/19: Went into A. fib with RVR last night and was started on fusion. Remains orally intubated on mechanical ventilation. Awake and alert. Following commands. On Levophed 12 mcg/min and vasopressin. Hematuria clearing. Has a good urine output. Objective Vital Signs / I&O: Vital Signs 12/18/17 12:00 12/18/17 12:15 12/18/17 15:31 Temperature 100.2 F H Pulse Rate 93 H 102 H Respiratory Rate 20 23 24 Blood Pressure 88/51 L Pulse Oximetry 100 12/18/17 15:32 12/18/17 16:00 12/18/17 20:00 Temperature 101.3 F H 101.8 F H Pulse Rate 98 H 80 Respiratory Rate 23 20 Blood Pressure 77/45 L 97/49 L Pulse Oximetry 100 100 12/18/17 20:26 12/18/17 20:28 12/18/17 22:00 Temperature Pulse Rate 83 101 H Respiratory Rate 26 H 20 Blood Pressure Pulse Oximetry 100 12/19/17 00:00 12/19/17 00:35 12/19/17 01:50 Temperature 100.8 F H Pulse Rate 122 H 122 H 124 H Respiratory Rate 20 20 Blood Pressure 109/64 Pulse Oximetry 100 100 12/19/17 02:00 12/19/17 04:00 12/19/17 05:01 Temperature 99.7 F H Pulse Rate 123 H 103 H 112 H Respiratory Rate 24 21 Blood Pressure 119/67 Pulse Oximetry 100 98 12/19/17 06:00 12/19/17 08:00 12/19/17 08:01 Temperature 97.5 F L Pulse Rate 120 H 113 H 113 H Respiratory Rate 20 Blood Pressure 86/53 L Pulse Oximetry 100 100 Intake & Output 12/18/17 12/19/17 12/19/17 18:59 06:59 18:59 Intake Total 2650 / 2650 2695 / 2695 1250 / 1250 Output Total 3875 / 3875 Balance 2650 / 2650 -1180 / -1180 1250 / 1250 Weight 66.2 kg Intake: IV 2650 / 2650 2695 / 2695 1250 / 1250 Cordarone Inj 450 MG In D5W Inj 250 / 250 241 ML @ 1 MG/MIN 33.33 mls/hr IV.CONT .Q7H31M ANIL Rx#: [id number] LR 1000 mL Inj 1,000 ML @ 100 1000 / 1000 mls/hr IV.CONT .Q10H ANIL Rx#: [id number] Sodium Bicarbonate 8.4% Inj 150 1000 / 1000 1000 / 1000 1000 / 1000 MEQ In D5W Inj 850 ML @ 125 mls/hr IV.CONT .Q8H ANIL Rx#: [id number] Pitressin Inj 40 UNIT In NS Inj 100 / 100 100 / 100 98 ML @ 0.04 UNITS/MIN 6 mls/ hr IV.CONT CONT ANIL Rx#: [id number] Alburx 5% Inj 500 ML @ 250 mls/ 500 / 500 1045 / 1045 hr IV.SIG Q8H ANIL Rx#:[id number] Cordarone Inj 150 MG In D5W Inj 100 / 100 97 ML @ 100 mls/hr IV.SIG ONCE ONE Rx#:[id number] Magnesium Sulfate Inj 2 GM In 100 / 100 NS Inj 96 ML @ 50 mls/hr IV.SIG UNSCH PRN Rx#:[id number] Zosyn 3.375 GM Premix 50 ML @ 50 / 50 150 / 150 100 mls/hr IV.SIG Q6H ANIL Rx#: [id number] KCl 20 mEq Premix Inj 20 meq In 200 / 200 100 ml @ 50 mls/hr IV.SIG Q2H PRN Rx#:[id number] Output: Urine 2600 / 2600 Urine Amount (Catheter) 725 / 725 Indwelling Urethral Catheter 725 / 725 Gastric Drainage 550 / 550 Oral Orogastric Tube 550 / 550 Result Diagrams: 12/19/17 04:45 12/19/17 07:10 Objective Remarks: HEENT/ Neuro: Awake and alert, following commands, orally intubated, Pallor present, no icterus, tongue/ mucosa moist Neck: No JVD Chest/Pulm: on mech vent, good air entry bilaterally, no wheezing or crackles CVS: S1-S2 irregularly irregular, no murmur GI/abdomen: soft, nontender, bowel sounds sluggish Extremities: warm bilaterally, trace edema Assessment and Plan - Assessment and Plan Plan: Neuro/Psych: Glaucoma Medicine reconciliation currently in process for her glaucoma medications which she is on 4 according to son at bedside. Acetaminophen 650 mg by mouth every 6 hours as needed fever Hydrocodone/acetaminophen 5/325 1 tablet every 4 hours as needed pain 1 through 5 Morphine sulfate 2 mg IV every 2 hours as needed pain 6 or 10 CV: Septic shock Lactic acidosis History of atrial fibrillation A. fib with RVR Received 4 L normal saline in ED. Serial lactates until cleared. Switched to bicarb drip in view of metabolic acidosis. 5% albumin every 8 hourly. Continue stress dose steroids in view of refractory shock requiring high-dose pressors. Currently on norepinephrine at 12 mcg/min/vasopressin 0.04 U/min to maintain mean arterial pressure greater or equal to [address]-T changes in the anterior leads. Normal sinus rhythm. Normal [place], QRS and QT intervals. On amiodarone infusion with adequate rate control. Will give digoxin 0.5 mg IV 1 dose x 1 Resp: Acute respiratory failure on mechanical ventilation Continue mechanical ventilation, vent bundle, bronchodilators Start CPAP trials tomorrow provided pressor requirement decreases. GI: UGI bleed Elevated total bilirubin Hypoalbuminemia OG tube. Holding tube feeds in view of bloody NG output. GI consult requested.. Pantoprazole for GI prophylaxis. Docusate sodium/senna 1 tablet twice daily for bowel regimen CT abdomen/pelvis revealed no acute intra-abdominal findings. Double-J stent remains in place : Status post left renal stent retrieval with placement of double-J stent/ lithotripsy History of recurrent nephrolithiasis with lithotripsy Dr. Clayton did the procedure above. He does not come to this facility. Vance catheterization for accurate intake output. Urology consult requested for further evaluation in view of hematuria and recent urologic procedure causing septic shock-discussed with Dr. Pinto on . CT abdomen pelvis on admission did not show any evidence of obstruction abscess formation and showed double-J stent in appropriate position. Endo: Sliding scale insulin if necessary to maintain euglycemia On stress dose steroids Renal: Strict intake output, monitor and replete electrolytes, follow BN creatinine. Heme: Leukopenia with neutropenia - improved Thrombocytopenia Monitor CBC daily. Follow trends. Neutropenic precautions Type and screen. Transfuse to keep hemoglobin above 8 g percent ID: Septic shock likely secondary to urinary tract infection Currently in vancomycin and cefepime ID consulted and following. Blood cultures 2, UA 12/17 pending FEN: Hypomagnesia Replace electrolytes as clinically indicated per ICU electrolyte protocol MSK: PT evaluate and treat Access -Right IJ CVL placed in 12/17 Prophylaxis -GI -pantoprazole -DVT -SCD/heparin subcu 35 minutes critical care time excluding procedures
[2017-12-19 10:36] LABS: Baso % (Auto) 0.1 % (0.0-2.0); Eos # (Auto) 0.1 th/mm3 (0.0-0.4); Eos % (Auto) 0.5 % (0.0-4.0); Hematocrit 25.9 % (35.0-46.0); Hemoglobin 8.5 gm/dL (11.6-15.3); Lymph # (Auto) 0.5 th/mm3 (1.0-4.8); Lymph % (Auto) 2.5 % (9.0-44.0); Mean Corpuscular HGB Conc 32.7 % (32.0-36.0); Mean Corpuscular Hemoglobin 26.9 pg (27.0-34.0); Mean Corpuscular Volume 82.3 fL (80.0-100.0); Mean Platelet Volume 10.7 fL (7.0-11.0); Mono # (Auto) 0.4 th/mm3 (0.0-0.9); Mono % (Auto) 1.8 % (0.0-8.0); Neut # (Auto) 20.6 th/mm3 (1.8-7.7); Neut % (Auto) 95.1 % (16.0-70.0); Platelet Count 38 th/mm3 (150-450); Red Blood Count 3.15 mil/mm3 (4.00-5.30); Red Cell Distribution Width 15.4 % (11.6-17.2); White Blood Count 21.6 th/mm3 (4.0-11.0)
[2017-12-19 10:54] LABS: Calcium 5.8 mg/dL (8.5-10.1); Carbon Dioxide 22.3 meq/L (21.0-32.0)
[2017-12-19 11:09] LABS: Dohle Bodies Present; Lymphocytes 1 % (9-44); Platelet Morphology Normal (Normal); Toxic Vacuolation Present
--- NOTE | 2017-12-19 12:46 | P.CONGI ---
History of Present Illness Consult date: 12/19/17 Consult reason: Bloody output through OG Chief complaint: Acute sepsis, Neuthrophenia, UTI History of Present Illness: This is a 82 yo F who was sent to the hospital for evaluation of post procedure fever S/P ureteral stent placement. Pt currently admitted to ICU, mechanically ventilated, on two pressors for blood pressure support and an Amiodarone drip for A-fib RVR that began overnight although pt does have history of a-fib she was noted to be sinus on admission. Our service has been consulted to evaluate pt for bloody output through OG tube. Per RN pt has had OG to [facility] yesterday, bloody output began over night. Pt is awake and able to shake head yes or no to questions but orally intubated so nonverbal. Per at bedside she has history of gastric ulcer maybe 40 years ago. Pt reports previous EGD but that it was a while ago. Of note, pt was on Eliquis for a-fib but this was discontinued 3 days prior to outpatient procedure prior to hospital admission. <Heidi Camacho - Last Filed: 12/19/17 12:39> Review of Systems unobtainable due to endotracheal tube <Heidi Camacho - Last Filed: 12/19/17 12:39> PMFSH - History History Provided By: Patient, 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, Program Attendant / EMT - Medical History Medical History: Medical History (Last Updated 12/17/17 @ 20:16 by Jonah Bartlett MD) Anticoagulant long-term use Glaucoma History of hysterectomy Nephrolithiasis Paroxysmal atrial fibrillation - Surgical History Surgical History: Surgical History (Last Updated 12/17/17 @ 20:17 by Jonah Bartlett MD) History of appendectomy History of renal stent - Tobacco History Second Hand Smoke Exposure: No Tobacco Use In Past 30 Days: No Smoking Status: Never smoker - Alcohol History How Often Do You Have a Drink Containing Alcohol: Monthly or less - Substance Use History Substance History: No History of Abuse - Travel History Recent Travel in the [place] Within the Last 8 Weeks: No Recent Travel Out of the Country Within the Last 8 Weeks: No - Immunization History Tetanus Immunization: Unsure Hx Influenza Vaccine This Season: No <Heidi Camacho - Last Filed: 12/19/17 12:39> - Medical History Medical History: Medical History (Last Updated 12/17/17 @ 20:16 by Jonah Bartlett MD) Anticoagulant long-term use Glaucoma History of hysterectomy Nephrolithiasis Paroxysmal atrial fibrillation - Surgical History Surgical History: Surgical History (Last Updated 12/17/17 @ 20:17 by Jonah Bartlett MD) History of appendectomy History of renal stent <Chucky Christianson - Last Filed: 12/19/17 20:11> Medications and Allergies Active Medications: Active Medications Acetaminophen (Tylenol) 650 mg PO Q6H PRN PRN Reason: PAIN 1-10 AND/OR FEVER >101F Last Admin: 12/18/17 20:59 Dose: 650 mg Hydrocodone Bitart/Acetaminophen ([place] 5/325) 1 tab PO Q4H PRN PRN Reason: PAIN SCALE 1 TO 5 Al Hydroxide/Mg Hydroxide (Milk Of Magnesia Liq) 30 ml PO Q12H PRN PRN Reason: Mild Constipation Al Hydroxide/Mg Hydroxide (Milk Of Magnesia Liq) 30 ml PO Q12H PRN PRN Reason: Mild Constipation Albuterol (Albuterol Neb (Prn)) 2.5 mg NEB Q2HR NEB PRN PRN Reason: SHORTNESS OF BREATH Albuterol (Duoneb Neb (Formerly [facility])) 1 ampul NEB Q4HR NEB COUNT INCLUDES THE [facility] Last Admin: 12/19/17 11:16 Dose: 1 ampul Artificial Tears (Tears Naturale Opth Drops) 1 drop EACH EYE Q8H COUNT INCLUDES THE [facility] Last Admin: 12/19/17 05:49 Dose: 1 drop Bisacodyl (Dulcolax Supp) 10 mg RECTAL DAILY PRN PRN Reason: SEVERE CONSITIPATION Chlorhexidine Gluconate (Chlorhexidine 2% Cloth) 3 pack TOPICAL DAILY@0400 COUNT INCLUDES THE [facility] Stop: 12/23/17 03:59 Last Admin: 12/19/17 04:00 Dose: 3 pack Chlorhexidine Gluconate (Peridex 0.12% Oral Kit) 15 ml OROPHARYNG BID@0800, 2000 COUNT INCLUDES THE [facility] Last Admin: 12/19/17 08:55 Dose: 15 ml Cyanocobalamin (Vitamin B12) 1,000 mcg PO DAILY COUNT INCLUDES THE [facility] Last Admin: 12/19/17 08:35 Dose: 1,000 mcg Dextrose (D50w Vial) 50 ml IV.PUSH UNSCH PRN PRN Reason: PER HYPOGLYCEMIA PROTOCOL Dextrose (D50w Vial) 50 ml IV.PUSH UNSCH PRN PRN Reason: PER HYPOGLYCEMIA PROTOCOL Dorzolamide HCl (Trusopt 2% Opth Drops) 1 drop EACH EYE BID COUNT INCLUDES THE [facility] Last Admin: 12/19/17 08:32 Dose: 1 drop Glucagon (Glucagon Inj) 1 mg OTHER PRN PRN PRN Reason: for Hypoglycemia Protocol Pharmacy Profile Note (Vancomycin Consult Pharmacy) 0 mls @ 0 mls/hr OTHER UNSCH DEVIN Potassium Chloride (Kcl 40 Meq Premix Inj) 40 meq in 100 mls @ 25 mls/hr IV.SIG Q2H PRN PRN Reason: For Potassium 2.8 - 3.2 mEq/L Potassium Chloride (Kcl 40 Meq Premix Inj) 40 meq in 100 mls @ 25 mls/hr IV.SIG UNSCH PRN PRN Reason: For Potassium 3.3 - 3.5 mEq/L Potassium Chloride (Kcl 20 Meq Premix Inj) 20 meq in 100 mls @ 50 mls/hr IV.SIG Q2H PRN PRN Reason: For Potassium 2.8 - 3.2 mEq/L Potassium Phosphate 30 mmol/ (Sodium Chloride) 260 mls @ 42 mls/hr IV.SIG UNSCH PRN PRN Reason: SEE LABEL COMMENTS Sodium Phosphate 30 mmol/ (Sodium Chloride) 260 mls @ 42 mls/hr IV.SIG UNSCH PRN PRN Reason: For Phosphorus < 2.5 mg/dL Vasopressin 40 unit/ Sodium (Chloride) 100 mls @ 6 mls/hr IV.CONT CONT DEVIN; Protocol Last Admin: 12/19/17 08:33 Dose: 0.04 units/min, 6 mls/hr Magnesium Sulfate Inj 4 gm/ (Sodium Chloride) 100 mls @ 50 mls/hr IV.SIG UNSCH PRN PRN Reason: For Magnesium 0.9 - 1.1 mg/dL Magnesium Sulfate Inj 2 gm/ (Sodium Chloride) 100 mls @ 50 mls/hr IV.SIG UNSCH PRN PRN Reason: For Magnesium 1.2 - 1.6 mg/dL Last Infusion: 12/19/17 05:51 Dose: Infused Fentanyl (Fentanyl 10 Mcg/Ml Premix Drip) 2,500 mcg in 250 mls @ 5 mls/hr IV.SIG TITRATE PRN; Protocol PRN Reason: Per Protocol Propofol (Diprivan 1000 Mg/100 Ml Inj) 1,000 mg in 100 mls @ 1.887 mls/hr IV.CONT TITRATE PRN; Protocol PRN Reason: Per Protocol Norepinephrine Bitartrate 16 (mg/ Dextrose) 250 mls @ 1.87 mls/hr IV.CONT TITRATE PRN; Protocol PRN Reason: See Protocol Last Titration: 12/19/17 06:10 Dose: 22 mcg/min, 20.62 mls/hr Sodium Bicarbonate 150 meq/ (Dextrose) 1,000 mls @ 125 mls/hr IV.CONT .Q8H DEVIN Last Admin: 12/19/17 08:34 Dose: 125 mls/hr Midazolam HCl (Versed Inj) 50 mg in 50 mls @ 2 mls/hr IV.CONT TITRATE PRN; Protocol PRN Reason: Per Protocol Albumin Human (Alburx 5% Inj) 500 mls @ 250 mls/hr IV.SIG Q8H DEVIN Last Admin: 12/19/17 08:34 Dose: 999 mls/hr Amiodarone HCl 450 mg/ (Dextrose) 250 mls @ 33.33 mls/hr IV.CONT .Q7H31M DEVIN; Protocol Last Admin: 12/19/17 08:32 Dose: 0.5 mg/min, 17 mls/hr Piperacillin/Tazobactam/Dextrose (Zosyn 2.25 Gm Premix) 50 mls @ 100 mls/hr IV.SIG Q6H DEVIN Insulin Aspart (Novolog Insulin Suppl Scale Inj) 0 unit SQ Q6HR DEVIN; Protocol Last Admin: 12/19/17 05:50 Dose: Not Given Lactulose (Lactulose Liq) 30 ml PO DAILY PRN PRN Reason: SEVERE CONSITIPATION Lansoprazole (Prevacid Solutab) 30 mg NG/OG DAILY COUNT INCLUDES THE [facility] Last Admin: 12/19/17 08:35 Dose: 30 mg Latanoprost (Xalatan 0.005% Opth Drops) 1 drop EACH EYE QPM COUNT INCLUDES THE [facility] Last Admin: 12/18/17 18:42 Dose: 1 drop Magnesium Oxide (Mag-Ox) 800 mg PO UNSCH PRN PRN Reason: For Magnesium 1.2 - 1.6 mg/dL Last Admin: 12/17/17 22:33 Dose: 800 mg Ondansetron HCl (Zofran Odt) 4 mg PO Q6H PRN PRN Reason: NAUSEA OR VOMITING Last Admin: 12/18/17 01:55 Dose: 4 mg Pat Own Med: Brimonidine (Alphgan P) 0.1% Oph Solution 0 each EACH EYE BID COUNT INCLUDES THE [facility] Pilocarpine HCl (Pilocar 1% Opth Drops) 1 drop EACH EYE TID COUNT INCLUDES THE [facility] Last Admin: 12/19/17 08:32 Dose: 1 drop Potassium Bicarb/Potassium Chloride (K-Lyte Cl Eff) 50 meq PO UNSCH PRN PRN Reason: For Potassium 3.3 - 3.5 mEq/L Potassium Phosphate (K-Phos Original) 2,000 mg PO Q4H PRN PRN Reason: Phosphorus Less Than 2.5 mg/dL Potassium Phosphate (K-Phos Original) 2,000 mg PO UNSCH PRN PRN Reason: SEE LABEL COMMENTS Senna/Docusate Sodium (Deyanira-Colace) 1 tab PO BID COUNT INCLUDES THE [facility] Last Admin: 12/19/17 08:35 Dose: 1 tab Sennosides (Senokot) 17.2 mg PO Q12H PRN PRN Reason: Moderate Constipation Sennosides (Senokot) 17.2 mg PO Q12H PRN PRN Reason: Moderate Constipation Sodium Chloride (Ns Flush) 0 ml IV.FLUSH DAILY COUNT INCLUDES THE [facility] Last Admin: 12/19/17 08:55 Dose: Not Given Sodium Chloride (Ns Flush) 2 ml IV.FLUSH PRN PRN PRN Reason: FLUSH AFTER USING IV ACCESS Sodium Chloride (Ns Flush) 2 ml IV.FLUSH BID COUNT INCLUDES THE [facility] Last Admin: 12/19/17 08:55 Dose: Not Given Terbutaline Sulfate (Brethine Inj) 1 mg SQ UNSCH PRN PRN Reason: For Extravasation <Heidi Camacho - Last Filed: 12/19/17 12:39> Active Medications: Active Medications Acetaminophen (Tylenol) 650 mg PO Q6H PRN PRN Reason: PAIN 1-10 AND/OR FEVER >101F Last Admin: 12/18/17 20:59 Dose: 650 mg Hydrocodone Bitart/Acetaminophen ([place] 5/325) 1 tab PO Q4H PRN PRN Reason: PAIN SCALE 1 TO 5 Al Hydroxide/Mg Hydroxide (Milk Of Magnesia Liq) 30 ml PO Q12H PRN PRN Reason: Mild Constipation Al Hydroxide/Mg Hydroxide (Milk Of Magnesia Liq) 30 ml PO Q12H PRN PRN Reason: Mild Constipation Albuterol (Albuterol Neb (Prn)) 2.5 mg NEB Q2HR NEB PRN PRN Reason: SHORTNESS OF BREATH Albuterol (Duoneb Neb (Devin)) 1 ampul NEB Q4HR NEB COUNT INCLUDES THE [facility] Last Admin: 12/19/17 20:08 Dose: 1 ampul Artificial Tears (Tears Naturale Opth Drops) 1 drop EACH EYE Q8H COUNT INCLUDES THE [facility] Last Admin: 12/19/17 15:34 Dose: Not Given Bisacodyl (Dulcolax Supp) 10 mg RECTAL DAILY PRN PRN Reason: SEVERE CONSITIPATION Chlorhexidine Gluconate (Chlorhexidine 2% Cloth) 3 pack TOPICAL DAILY@0400 COUNT INCLUDES THE [facility] Stop: 12/23/17 03:59 Last Admin: 12/19/17 04:00 Dose: 3 pack Chlorhexidine Gluconate (Peridex 0.12% Oral Kit) 15 ml OROPHARYNG BID@0800, 2000 COUNT INCLUDES THE [facility] Last Admin: 12/19/17 08:55 Dose: 15 ml Cyanocobalamin (Vitamin B12) 1,000 mcg PO DAILY COUNT INCLUDES THE [facility] Last Admin: 12/19/17 08:35 Dose: 1,000 mcg Dextrose (D50w Vial) 50 ml IV.PUSH UNSCH PRN PRN Reason: PER HYPOGLYCEMIA PROTOCOL Dextrose (D50w Vial) 50 ml IV.PUSH UNSCH PRN PRN Reason: PER HYPOGLYCEMIA PROTOCOL Dorzolamide HCl (Trusopt 2% Opth Drops) 1 drop EACH EYE BID COUNT INCLUDES THE [facility] Last Admin: 12/19/17 08:32 Dose: 1 drop Glucagon (Glucagon Inj) 1 mg OTHER PRN PRN PRN Reason: for Hypoglycemia Protocol Pharmacy Profile Note (Vancomycin Consult Pharmacy) 0 mls @ 0 mls/hr OTHER UNSCH COUNT INCLUDES THE [facility] Potassium Chloride (Kcl 40 Meq Premix Inj) 40 meq in 100 mls @ 25 mls/hr IV.SIG Q2H PRN PRN Reason: For Potassium 2.8 - 3.2 mEq/L Last Admin: 12/19/17 15:25 Dose: 25 mls/hr Potassium Chloride (Kcl 40 Meq Premix Inj) 40 meq in 100 mls @ 25 mls/hr IV.SIG UNSCH PRN PRN Reason: For Potassium 3.3 - 3.5 mEq/L Potassium Chloride (Kcl 20 Meq Premix Inj) 20 meq in 100 mls @ 50 mls/hr IV.SIG Q2H PRN PRN Reason: For Potassium 2.8 - 3.2 mEq/L Potassium Phosphate 30 mmol/ (Sodium Chloride) 260 mls @ 42 mls/hr IV.SIG UNSCH PRN PRN Reason: SEE LABEL COMMENTS Sodium Phosphate 30 mmol/ (Sodium Chloride) 260 mls @ 42 mls/hr IV.SIG UNSCH PRN PRN Reason: For Phosphorus < 2.5 mg/dL Vasopressin 40 unit/ Sodium (Chloride) 100 mls @ 6 mls/hr IV.CONT CONT DEVIN; Protocol Last Admin: 12/19/17 08:33 Dose: 0.04 units/min, 6 mls/hr Magnesium Sulfate Inj 4 gm/ (Sodium Chloride) 100 mls @ 50 mls/hr IV.SIG UNSCH PRN PRN Reason: For Magnesium 0.9 - 1.1 mg/dL Magnesium Sulfate Inj 2 gm/ (Sodium Chloride) 100 mls @ 50 mls/hr IV.SIG UNSCH PRN PRN Reason: For Magnesium 1.2 - 1.6 mg/dL Last Infusion: 12/19/17 05:51 Dose: Infused Fentanyl (Fentanyl 10 Mcg/Ml Premix Drip) 2,500 mcg in 250 mls @ 5 mls/hr IV.SIG TITRATE PRN; Protocol PRN Reason: Per Protocol Propofol (Diprivan 1000 Mg/100 Ml Inj) 1,000 mg in 100 mls @ 1.887 mls/hr IV.CONT TITRATE PRN; Protocol PRN Reason: Per Protocol Norepinephrine Bitartrate 16 (mg/ Dextrose) 250 mls @ 1.87 mls/hr IV.CONT TITRATE PRN; Protocol PRN Reason: See Protocol Last Titration: 12/19/17 06:10 Dose: 22 mcg/min, 20.62 mls/hr Sodium Bicarbonate 150 meq/ (Dextrose) 1,000 mls @ 125 mls/hr IV.CONT .Q8H DEVIN Last Admin: 12/19/17 19:47 Dose: 125 mls/hr Midazolam HCl (Versed Inj) 50 mg in 50 mls @ 2 mls/hr IV.CONT TITRATE PRN; Protocol PRN Reason: Per Protocol Albumin Human (Alburx 5% Inj) 500 mls @ 250 mls/hr IV.SIG Q8H DEVIN Last Admin: 12/19/17 20:00 Dose: 999 mls/hr Amiodarone HCl 450 mg/ (Dextrose) 250 mls @ 33.33 mls/hr IV.CONT .Q7H31M COUNT INCLUDES THE [facility]; Protocol Last Admin: 12/19/17 08:32 Dose: 0.5 mg/min, 17 mls/hr Piperacillin/Tazobactam/Dextrose (Zosyn 2.25 Gm Premix) 50 mls @ 100 mls/hr IV.SIG Q6H COUNT INCLUDES THE [facility] Last Admin: 12/19/17 20:00 Dose: 100 mls/hr Pantoprazole Sodium 80 mg/ (Sodium Chloride) 100 mls @ 10 mls/hr IV.CONT CONT COUNT INCLUDES THE [facility] Last Admin: 12/19/17 15:24 Dose: 10 mls/hr Epinephrine HCl 8 mg/ Sodium (Chloride) 250 mls @ 5.62 mls/hr IV.CONT TITRATE PRN; Protocol PRN Reason: See Protocol Insulin Aspart (Novolog Insulin Suppl Scale Inj) 0 unit SQ Q6HR COUNT INCLUDES THE [facility]; Protocol Last Admin: 12/19/17 19:48 Dose: Not Given Lactulose (Lactulose Liq) 30 ml PO DAILY PRN PRN Reason: SEVERE CONSITIPATION Latanoprost (Xalatan 0.005% Opth Drops) 1 drop EACH EYE QPM COUNT INCLUDES THE [facility] Last Admin: 12/19/17 19:48 Dose: 1 drop Magnesium Oxide (Mag-Ox) 800 mg PO UNSCH PRN PRN Reason: For Magnesium 1.2 - 1.6 mg/dL Last Admin: 12/17/17 22:33 Dose: 800 mg Ondansetron HCl (Zofran Odt) 4 mg PO Q6H PRN PRN Reason: NAUSEA OR VOMITING Last Admin: 12/18/17 01:55 Dose: 4 mg Pat Own Med: Brimonidine (Alphgan P) 0.1% Oph Solution 0 each EACH EYE BID COUNT INCLUDES THE [facility] Pilocarpine HCl (Pilocar 1% Opth Drops) 1 drop EACH EYE TID COUNT INCLUDES THE [facility] Last Admin: 12/19/17 19:48 Dose: 1 drop Potassium Bicarb/Potassium Chloride (K-Lyte Cl Eff) 50 meq PO UNSCH PRN PRN Reason: For Potassium 3.3 - 3.5 mEq/L Potassium Phosphate (K-Phos Original) 2,000 mg PO Q4H PRN PRN Reason: Phosphorus Less Than 2.5 mg/dL Potassium Phosphate (K-Phos Original) 2,000 mg PO UNSCH PRN PRN Reason: SEE LABEL COMMENTS Senna/Docusate Sodium (Deyanira-Colace) 1 tab PO BID COUNT INCLUDES THE [facility] Last Admin: 12/19/17 08:35 Dose: 1 tab Sennosides (Senokot) 17.2 mg PO Q12H PRN PRN Reason: Moderate Constipation Sennosides (Senokot) 17.2 mg PO Q12H PRN PRN Reason: Moderate Constipation Sodium Chloride (Ns Flush) 0 ml IV.FLUSH DAILY COUNT INCLUDES THE [facility] Last Admin: 12/19/17 08:55 Dose: Not Given Sodium Chloride (Ns Flush) 2 ml IV.FLUSH PRN PRN PRN Reason: FLUSH AFTER USING IV ACCESS Sodium Chloride (Ns Flush) 2 ml IV.FLUSH BID COUNT INCLUDES THE [facility] Last Admin: 12/19/17 08:55 Dose: Not Given Terbutaline Sulfate (Brethine Inj) 1 mg SQ UNSCH PRN PRN Reason: For Extravasation <Chucky Christianson A - Last Filed: 12/19/17 20:11> Allergies Allergy/AdvReac Type Severity Reaction Status Date / Time No Known Allergies Allergy Unverified 12/17/17 14:47 Home Medications Medication Instructions Recorded Confirmed Type apixaban [Eliquis] 5 mg PO BID 12/17/17 12/17/17 History brimonidine [Alphagan P] 1 drp OPHTHALMIC (EYE) BID 12/17/17 12/17/17 History cyanocobalamin (vitamin B-12) 1,000 mcg PO DAILY 12/17/17 12/17/17 History [Vitamin B-12] dorzolamide 1 drp OPHTHALMIC (EYE) BID 12/17/17 12/17/17 History pilocarpine HCl 1 drp OPHTHALMIC (EYE) TID 12/17/17 12/17/17 History travoprost [Travatan Z] 1 drp OPHTHALMIC (EYE) QPM 12/17/17 12/17/17 History Exam Vital signs: Vital Signs 12/18/17 15:31 12/18/17 15:32 12/18/17 16:00 Temperature 101.3 F H Pulse Rate 102 H 98 H Respiratory Rate 24 23 Blood Pressure 77/45 L Pulse Oximetry 100 12/18/17 20:00 12/18/17 20:26 12/18/17 20:28 Temperature 101.8 F H Pulse Rate 80 83 Respiratory Rate 20 26 H 20 Blood Pressure 97/49 L Pulse Oximetry 100 100 12/18/17 22:00 12/19/17 00:00 12/19/17 00:35 Temperature 100.8 F H Pulse Rate 101 H 122 H 122 H Respiratory Rate 20 Blood Pressure 109/64 Pulse Oximetry 100 12/19/17 01:50 12/19/17 02:00 12/19/17 04:00 Temperature 99.7 F H Pulse Rate 124 H 123 H 103 H Respiratory Rate 20 24 Blood Pressure 119/67 Pulse Oximetry 100 100 12/19/17 05:01 12/19/17 05:15 12/19/17 05:30 Temperature Pulse Rate 112 H 113 H 113 H Respiratory Rate 22 21 23 Blood Pressure 111/53 L 112/57 L 100/53 L Pulse Oximetry 98 99 99 12/19/17 05:45 12/19/17 06:00 12/19/17 06:15 Temperature Pulse Rate 114 H 120 H 117 H Respiratory Rate 23 22 20 Blood Pressure 110/55 L 119/58 L 125/56 L Pulse Oximetry 100 99 100 12/19/17 06:30 12/19/17 06:45 12/19/17 07:00 Temperature Pulse Rate 116 H 107 H 118 H Respiratory Rate 23 20 21 Blood Pressure 99/54 L 101/52 L 102/51 L Pulse Oximetry 99 97 100 12/19/17 07:15 12/19/17 07:30 12/19/17 07:45 Temperature Pulse Rate 115 H 109 H 120 H Respiratory Rate 21 23 25 H Blood Pressure 106/58 L 101/57 L 88/55 L Pulse Oximetry 100 100 98 12/19/17 08:00 12/19/17 08:01 12/19/17 08:15 Temperature 97.5 F L Pulse Rate 111 H 113 H 113 H Respiratory Rate 21 20 23 Blood Pressure 80/43 L 86/51 L Pulse Oximetry 99 100 96 12/19/17 08:31 12/19/17 08:45 12/19/17 09:00 Temperature Pulse Rate 118 H 114 H 105 H Respiratory Rate 23 22 23 Blood Pressure 92/54 L 88/49 L 82/57 L Pulse Oximetry 97 100 95 12/19/17 09:15 12/19/17 09:30 12/19/17 09:41 Temperature Pulse Rate 114 H 113 H 109 H Respiratory Rate 17 27 H 22 Blood Pressure 86/53 L 79/51 L 87/47 L Pulse Oximetry 95 99 99 12/19/17 09:45 12/19/17 10:00 12/19/17 10:15 Temperature Pulse Rate 111 H 110 H 113 H Respiratory Rate 19 23 20 Blood Pressure 83/50 L 86/54 L 78/42 L Pulse Oximetry 94 L 92 L 96 12/19/17 10:30 12/19/17 10:45 12/19/17 11:17 Temperature Pulse Rate 110 H 113 H 111 H Respiratory Rate 21 23 23 Blood Pressure 87/51 L 87/50 L Pulse Oximetry 99 96 100 Intake & Output 12/18/17 12/19/17 12/19/17 18:59 06:59 18:59 Intake Total 2650 / 2650 2695 / 2695 1250 / 1250 Output Total 3875 / 3875 Balance 2650 / 2650 -1180 / -1180 1250 / 1250 Weight 66.2 kg Intake: IV 2650 / 2650 2695 / 2695 1250 / 1250 Cordarone Inj 450 MG In D5W Inj 250 / 250 241 ML @ 1 MG/MIN 33.33 mls/hr IV.CONT .Q7H31M DEVIN Rx#: [id number] LR 1000 mL Inj 1,000 ML @ 100 1000 / 1000 mls/hr IV.CONT .Q10H DEVIN Rx#: [id number] Sodium Bicarbonate 8.4% Inj 150 1000 / 1000 1000 / 1000 1000 / 1000 MEQ In D5W Inj 850 ML @ 125 mls/hr IV.CONT .Q8H DEVIN Rx#: [id number] Pitressin Inj 40 UNIT In NS Inj 100 / 100 100 / 100 98 ML @ 0.04 UNITS/MIN 6 mls/ hr IV.CONT CONT DEVIN Rx#: [id number] Alburx 5% Inj 500 ML @ 250 mls/ 500 / 500 1045 / 1045 hr IV.SIG Q8H DEVIN Rx#:[id number] Cordarone Inj 150 MG In D5W Inj 100 / 100 97 ML @ 100 mls/hr IV.SIG ONCE ONE Rx#:[id number] Magnesium Sulfate Inj 2 GM In 100 / 100 NS Inj 96 ML @ 50 mls/hr IV.SIG UNSCH PRN Rx#:[id number] Zosyn 3.375 GM Premix 50 ML @ 50 / 50 150 / 150 100 mls/hr IV.SIG Q6H DEVIN Rx#: [id number] KCl 20 mEq Premix Inj 20 meq In 200 / 200 100 ml @ 50 mls/hr IV.SIG Q2H PRN Rx#:[id number] Output: Urine 2600 / 2600 Urine Amount (Catheter) 725 / 725 Indwelling Urethral Catheter 725 / 725 Gastric Drainage 550 / 550 Oral Orogastric Tube 550 / 550 - Constitutional no acute distress - Routine HEENT Exam Head: Present: normocephalic, atraumatic - Routine Respiratory Exam Present: patient mechanically ventilated - Routine Cardiovascular Exam Present: irregularly irregular - Routine Abdominal Exam Present: soft, normoactive bowel sounds. Absent: tenderness, distended, rebound , guarding - Routine Neurological Exam Present: alert <Heidi Camacho - Last Filed: 12/19/17 12:39> Vital signs: Vital Signs 12/18/17 20:26 12/18/17 20:28 12/18/17 22:00 Temperature Pulse Rate 83 101 H Respiratory Rate 26 H 20 Blood Pressure Pulse Oximetry 100 12/19/17 00:00 12/19/17 00:35 12/19/17 01:50 Temperature 100.8 F H Pulse Rate 122 H 122 H 124 H Respiratory Rate 20 20 Blood Pressure 109/64 Pulse Oximetry 100 100 12/19/17 02:00 12/19/17 04:00 12/19/17 05:01 Temperature 99.7 F H Pulse Rate 123 H 103 H 112 H Respiratory Rate 24 22 Blood Pressure 119/67 111/53 L Pulse Oximetry 100 98 12/19/17 05:15 12/19/17 05:30 12/19/17 05:45 Temperature Pulse Rate 113 H 113 H 114 H Respiratory Rate 21 23 23 Blood Pressure 112/57 L 100/53 L 110/55 L Pulse Oximetry 99 99 100 12/19/17 06:00 12/19/17 06:15 12/19/17 06:30 Temperature Pulse Rate 120 H 117 H 116 H Respiratory Rate 22 20 23 Blood Pressure 119/58 L 125/56 L 99/54 L Pulse Oximetry 99 100 99 12/19/17 06:45 12/19/17 07:00 12/19/17 07:15 Temperature Pulse Rate 107 H 118 H 115 H Respiratory Rate 20 21 21 Blood Pressure 101/52 L 102/51 L 106/58 L Pulse Oximetry 97 100 100 12/19/17 07:30 12/19/17 07:45 12/19/17 08:00 Temperature 97.5 F L Pulse Rate 109 H 120 H 111 H Respiratory Rate 23 25 H 21 Blood Pressure 101/57 L 88/55 L 80/43 L Pulse Oximetry 100 98 99 12/19/17 08:01 12/19/17 08:15 12/19/17 08:31 Temperature Pulse Rate 113 H 113 H 118 H Respiratory Rate 20 23 23 Blood Pressure 86/51 L 92/54 L Pulse Oximetry 100 96 97 12/19/17 08:45 12/19/17 09:00 12/19/17 09:15 Temperature Pulse Rate 114 H 105 H 114 H Respiratory Rate 22 23 17 Blood Pressure 88/49 L 82/57 L 86/53 L Pulse Oximetry 100 95 95 12/19/17 09:30 12/19/17 09:41 12/19/17 09:45 Temperature Pulse Rate 113 H 109 H 111 H Respiratory Rate 27 H 22 19 Blood Pressure 79/51 L 87/47 L 83/50 L Pulse Oximetry 99 99 94 L 12/19/17 10:00 12/19/17 10:15 12/19/17 10:30 Temperature Pulse Rate 110 H 113 H 110 H Respiratory Rate 23 20 21 Blood Pressure 86/54 L 78/42 L 87/51 L Pulse Oximetry 92 L 96 99 12/19/17 10:45 12/19/17 11:17 12/19/17 12:00 Temperature 97.5 F L Pulse Rate 113 H 111 H 111 H Respiratory Rate 23 23 Blood Pressure 87/50 L Pulse Oximetry 96 100 12/19/17 13:45 12/19/17 14:00 12/19/17 14:15 Temperature Pulse Rate 109 H 111 H Respiratory Rate 23 18 Blood Pressure 82/54 L 83/52 L 91/54 L Pulse Oximetry 93 L 94 L 12/19/17 14:30 12/19/17 14:45 07/12/18 15:00 Temperature Pulse Rate 111 H 111 H 112 H Respiratory Rate 20 22 23 Blood Pressure 95/47 L 92/55 L 94/51 L Pulse Oximetry 100 100 12/19/17 15:15 12/19/17 15:30 12/19/17 15:46 Temperature Pulse Rate 112 H 112 H 115 H Respiratory Rate 18 19 21 Blood Pressure 112/55 L 92/62 L 90/43 L Pulse Oximetry 96 100 100 12/19/17 16:00 12/19/17 16:15 12/19/17 16:30 Temperature 98.2 F Pulse Rate 108 H 112 H 113 H Respiratory Rate 21 18 18 Blood Pressure 86/50 L 80/61 L 93/56 L Pulse Oximetry 100 100 12/19/17 16:45 12/19/17 16:50 12/19/17 17:00 Temperature Pulse Rate 109 H 106 H 108 H Respiratory Rate 18 19 26 H Blood Pressure 89/46 L 78/52 L Pulse Oximetry 100 96 100 12/19/17 17:05 12/19/17 17:15 12/19/17 17:30 Temperature Pulse Rate 110 H 119 H 68 Respiratory Rate 21 33 H 28 H Blood Pressure 82/51 L 126/80 142/83 H Pulse Oximetry 100 79 L 12/19/17 17:45 12/19/17 18:00 12/19/17 18:01 Temperature Pulse Rate 121 H 129 H 132 H Respiratory Rate 13 12 11 L Blood Pressure 144/65 H 78/41 L Pulse Oximetry 12/19/17 18:07 12/19/17 18:15 12/19/17 18:34 Temperature Pulse Rate 97 H Respiratory Rate 9 L Blood Pressure 108/53 L 149/57 H Pulse Oximetry 60 L 100 87 L 12/19/17 18:45 12/19/17 19:00 12/19/17 19:15 Temperature Pulse Rate 91 H 91 H 91 H Respiratory Rate 20 20 20 Blood Pressure 106/53 L 103/55 L 112/56 L Pulse Oximetry 89 L 92 L 12/19/17 19:30 Temperature Pulse Rate 91 H Respiratory Rate 20 Blood Pressure 112/58 L Pulse Oximetry 90 L Intake & Output 12/19/17 12/19/17 12/20/17 06:59 18:59 06:59 Intake Total 2695 / 2695 2750 / 2750 Output Total 3875 / 3875 1890 / 1890 Balance -1180 / -1180 860 / 860 Weight 66.2 kg Intake: IV 2695 / 2695 2750 / 2750 Cordarone Inj 450 MG In D5W Inj 250 / 250 241 ML @ 1 MG/MIN 33.33 mls/hr IV.CONT .[id number] DEVIN Rx#: [id number] Sodium Bicarbonate 8.4% Inj 150 1000 / 1000 2000 / 2000 MEQ In D5W Inj 850 ML @ 125 mls/hr IV.CONT .Q8H DEVNI Rx#: [id number] Pitressin Inj 40 UNIT In NS Inj 100 / 100 98 ML @ 0.04 UNITS/MIN 6 mls/ hr IV.CONT CONT DEVIN Rx#: [id number] Alburx 5% Inj 500 ML @ 250 mls/ 1045 / 1045 500 / 500 hr IV.SIG Q8H DEVIN Rx#:[id number] Cordarone Inj 150 MG In D5W Inj 100 / 100 97 ML @ 100 mls/hr IV.SIG ONCE ONE Rx#:[id number] Magnesium Sulfate Inj 2 GM In 100 / 100 NS Inj 96 ML @ 50 mls/hr IV.SIG UNSCH PRN Rx#:[id number] Zosyn 3.375 GM Premix 50 ML @ 150 / 150 100 mls/hr IV.SIG Q6H DEVIN Rx#: [id number] KCl 20 mEq Premix Inj 20 meq In 200 / 200 100 ml @ 50 mls/hr IV.SIG Q2H PRN Rx#:[id number] Output: Urine 2600 / 2600 Urine Amount (Catheter) 725 / 725 800 / 800 Indwelling Urethral Catheter 725 / 725 800 / 800 Gastric Drainage 550 / 550 500 / 500 Oral Orogastric Tube 550 / 550 500 / 500 Chest Tube Drainage 590 / 590 Right Upper 590 / 590 Other: Date of Last Bowel Movement 12/19/17 # Bowel Movements 1 <Chucky Christianson - Last Filed: 12/19/17 20:11> Results - Labs CBC & Chem 7: 12/19/17 10:10 12/19/17 10:10 Labs: Laboratory Results - last 24 hr 12/18/17 12/18/17 12/18/17 12:33 13:10 13:10 WBC 14.9 H RBC 3.50 L Hgb 9.6 L Hct 29.5 L MCV 84.3 MCH 27.3 MCHC 32.4 RDW 15.6 Plt Count 65 L MPV 10.1 Prelim Diff (Auto) Neut % (Auto) Lymph % (Auto) [place] % (Auto) Eos % (Auto) Baso % (Auto) Neut # (Auto) Lymph # (Auto) [place] # (Auto) Eos # (Auto) Baso # (Auto) WBC Differential Seg Neuts % (Manual) Band Neuts % (Manual) Lymphocytes % (Manual) Monocytes % (Manual) Metamyelocytes % (Man) Myelocytes % (Man) Abs Neuts (Manual) Differential Comment Toxic Vacuolation Dohle Bodies Platelet Estimate Platelet Morphology Ovalocytes Fibrinogen D-Dimer Quant (PE/DVT) Sodium Potassium Chloride Carbon Dioxide Anion Gap BUN Creatinine Estimated GFR POC Glucose 95 Random Glucose Lactic Acid 2.3 H Calcium Prot Corrected Calcium Magnesium Total Bilirubin AST ALT Alkaline Phosphatase Total Protein Albumin Random Vancomycin Blood Type Blood Type Recheck Antibody Screen 12/18/17 12/18/17 12/18/17 13:10 13:10 13:10 WBC RBC Hgb Hct MCV MCH MCHC RDW Plt Count MPV Prelim Diff (Auto) Neut % (Auto) Lymph % (Auto) [place] % (Auto) Eos % (Auto) Baso % (Auto) Neut # (Auto) Lymph # (Auto) [place] # (Auto) Eos # (Auto) Baso # (Auto) WBC Differential Seg Neuts % (Manual) Band Neuts % (Manual) Lymphocytes % (Manual) Monocytes % (Manual) Metamyelocytes % (Man) Myelocytes % (Man) Abs Neuts (Manual) Differential Comment Toxic Vacuolation Dohle Bodies Platelet Estimate Platelet Morphology Ovalocytes Fibrinogen 150 L D-Dimer Quant (PE/DVT) Greater than 35.20 H Sodium 140 Potassium 3.3 L Chloride 109 H Carbon Dioxide 18.9 L Anion Gap 12 BUN 31 H Creatinine 1.23 H Estimated GFR 42 L POC Glucose Random Glucose 113 H Lactic Acid Calcium 6.6 L* Prot Corrected Calcium 8.0 L Magnesium Total Bilirubin 1.5 H AST 49 H ALT 25 Alkaline Phosphatase 72 Total Protein 4.4 L Albumin 2.1 L Random Vancomycin Blood Type Blood Type Recheck Antibody Screen 12/18/17 12/18/17 12/18/17 17:49 20:21 23:41 WBC RBC Hgb Hct MCV MCH MCHC RDW Plt Count MPV Prelim Diff (Auto) Neut % (Auto) Lymph % (Auto) [place] % (Auto) Eos % (Auto) Baso % (Auto) Neut # (Auto) Lymph # (Auto) [place] # (Auto) Eos # (Auto) Baso # (Auto) WBC Differential Seg Neuts % (Manual) Band Neuts % (Manual) Lymphocytes % (Manual) Monocytes % (Manual) Metamyelocytes % (Man) Myelocytes % (Man) Abs Neuts (Manual) Differential Comment Toxic Vacuolation Dohle Bodies Platelet Estimate Platelet Morphology Ovalocytes Fibrinogen D-Dimer Quant (PE/DVT) Sodium Potassium Chloride Carbon Dioxide Anion Gap BUN Creatinine Estimated GFR POC Glucose 102 165 H Random Glucose Lactic Acid 2.3 H Calcium Prot Corrected Calcium Magnesium Total Bilirubin AST ALT Alkaline Phosphatase Total Protein Albumin Random Vancomycin Blood Type Blood Type Recheck Antibody Screen 12/19/17 12/19/17 12/19/17 04:45 04:45 04:45 WBC 21.4 H RBC 3.27 L Hgb 8.9 L Hct 26.9 L MCV 82.1 MCH 27.4 MCHC 33.3 RDW 15.2 Plt Count 45 L D MPV 10.7 Prelim Diff (Auto) Slide review pending Neut % (Auto) 96.7 H Lymph % (Auto) 2.1 L [place] % (Auto) 1.0 Eos % (Auto) 0.1 Baso % (Auto) 0.1 Neut # (Auto) 20.7 H Lymph # (Auto) 0.5 L [place] # (Auto) 0.2 Eos # (Auto) 0.0 Baso # (Auto) 0.0 WBC Differential Manual diff final Seg Neuts % (Manual) 50 Band Neuts % (Manual) 35 H Lymphocytes % (Manual) 4 L Monocytes % (Manual) 3 Metamyelocytes % (Man) 7 H Myelocytes % (Man) 1 H Abs Neuts (Manual) 19.9 H Differential Comment . Toxic Vacuolation Present H Dohle Bodies Present H Platelet Estimate Low L Platelet Morphology Normal Ovalocytes 1+ H Fibrinogen D-Dimer Quant (PE/DVT) Sodium 137 Potassium 3.2 L Chloride 103 Carbon Dioxide 19.5 L Anion Gap 15 BUN 33 H Creatinine 1.54 H Estimated GFR 32 L POC Glucose Random Glucose 159 H Lactic Acid Calcium 6.1 L* Prot Corrected Calcium 7.2 L* D Magnesium 1.9 D Total Bilirubin 2.7 H AST 54 H ALT 24 Alkaline Phosphatase 68 Total Protein 4.7 L Albumin 2.8 L D Random Vancomycin 7.8 Blood Type Blood Type Recheck Antibody Screen 12/19/17 12/19/17 12/19/17 05:39 07:10 10:10 WBC 21.6 H RBC 3.15 L Hgb 8.5 L Hct 25.9 L MCV 82.3 MCH 26.9 L MCHC 32.7 RDW 15.4 Plt Count 38 L MPV 10.7 Prelim Diff (Auto) Slide review pending Neut % (Auto) 95.1 H Lymph % (Auto) 2.5 L [place] % (Auto) 1.8 Eos % (Auto) 0.5 Baso % (Auto) 0.1 Neut # (Auto) 20.6 H Lymph # (Auto) 0.5 L [place] # (Auto) 0.4 Eos # (Auto) 0.1 Baso # (Auto) 0.0 WBC Differential Manual diff final Seg Neuts % (Manual) 49 Band Neuts % (Manual) 50 H Lymphocytes % (Manual) 1 L Monocytes % (Manual) Metamyelocytes % (Man) Myelocytes % (Man) Abs Neuts (Manual) 21.4 H Differential Comment . Toxic Vacuolation Present H Dohle Bodies Present H Platelet Estimate Low L Platelet Morphology Normal Ovalocytes Fibrinogen D-Dimer Quant (PE/DVT) Sodium Potassium 3.0 L Chloride Carbon Dioxide Anion Gap BUN Creatinine Estimated GFR POC Glucose 162 H Random Glucose Lactic Acid Calcium Prot Corrected Calcium Magnesium Total Bilirubin AST ALT Alkaline Phosphatase Total Protein Albumin Random Vancomycin Blood Type Blood Type Recheck Antibody Screen 12/19/17 12/19/17 10:10 10:10 WBC RBC Hgb Hct MCV MCH MCHC RDW Plt Count MPV Prelim Diff (Auto) Neut % (Auto) Lymph % (Auto) [place] % (Auto) Eos % (Auto) Baso % (Auto) Neut # (Auto) Lymph # (Auto) [place] # (Auto) Eos # (Auto) Baso # (Auto) WBC Differential Seg Neuts % (Manual) Band Neuts % (Manual) Lymphocytes % (Manual) Monocytes % (Manual) Metamyelocytes % (Man) Myelocytes % (Man) Abs Neuts (Manual) Differential Comment Toxic Vacuolation Dohle Bodies Platelet Estimate Platelet Morphology Ovalocytes Fibrinogen D-Dimer Quant (PE/DVT) Sodium 138 Potassium Chloride 102 Carbon Dioxide 22.3 Anion Gap 14 BUN 31 H Creatinine 1.56 H Estimated GFR 32 L POC Glucose Random Glucose 133 H Lactic Acid Calcium 5.8 L* Prot Corrected Calcium 6.7 L* Magnesium Total Bilirubin AST ALT Alkaline Phosphatase Total Protein 5.0 L Albumin Random Vancomycin Blood Type O Negative Blood Type Recheck Required Antibody Screen Negative <Heidi Camacho - Last Filed: 12/19/17 12:39> - Labs CBC & Chem 7: 12/19/17 18:00 12/19/17 18:00 Labs: Laboratory Results - last 24 hr 12/18/17 12/18/17 12/19/17 20:21 23:41 04:45 WBC RBC Hgb Hct MCV MCH MCHC RDW Plt Count MPV Prelim Diff (Auto) Neut % (Auto) Lymph % (Auto) [place] % (Auto) Eos % (Auto) Baso % (Auto) Neut # (Auto) Lymph # (Auto) [place] # (Auto) Eos # (Auto) Baso # (Auto) WBC Differential Seg Neuts % (Manual) Band Neuts % (Manual) Lymphocytes % (Manual) Monocytes % (Manual) Metamyelocytes % (Man) Myelocytes % (Man) Abs Neuts (Manual) Differential Comment Toxic Vacuolation Dohle Bodies Platelet Estimate Platelet Morphology Ovalocytes PT INR APTT Fibrinogen Puncture Site Patient Temperature O2 Saturation ABG pH ABG pCO2 ABG pO2 ABG HCO3 ABG O2 Content ABG Base Excess ABG Methemoglobin Pablo Test Hemoglobin Carboxyhemoglobin O2 Delivery Device Liter Flow Vent Setting Inspired O2 Critical Value Sodium Potassium Chloride Carbon Dioxide Anion Gap BUN Creatinine Estimated GFR POC Glucose 165 H Random Glucose Lactic Acid 2.3 H Calcium Prot Corrected Calcium Phosphorus Magnesium Total Bilirubin AST ALT Alkaline Phosphatase Lactate Dehydrogenase Total Creatine Kinase CK-MB (CK-2) CK-MB (CK-2) % Troponin I Total Protein Albumin Random Vancomycin 7.8 Blood Type Blood Type Recheck Antibody Screen MTS Gel Crossmatch 12/19/17 12/19/17 12/19/17 04:45 04:45 05:39 WBC 21.4 H RBC 3.27 L Hgb 8.9 L Hct 26.9 L MCV 82.1 MCH 27.4 MCHC 33.3 RDW 15.2 Plt Count 45 L D MPV 10.7 Prelim Diff (Auto) Slide review pending Neut % (Auto) 96.7 H Lymph % (Auto) 2.1 L [place] % (Auto) 1.0 Eos % (Auto) 0.1 Baso % (Auto) 0.1 Neut # (Auto) 20.7 H Lymph # (Auto) 0.5 L [place] # (Auto) 0.2 Eos # (Auto) 0.0 Baso # (Auto) 0.0 WBC Differential Manual diff final Seg Neuts % (Manual) 50 Band Neuts % (Manual) 35 H Lymphocytes % (Manual) 4 L Monocytes % (Manual) 3 Metamyelocytes % (Man) 7 H Myelocytes % (Man) 1 H Abs Neuts (Manual) 19.9 H Differential Comment . Toxic Vacuolation Present H Dohle Bodies Present H Platelet Estimate Low L Platelet Morphology Normal Ovalocytes 1+ H PT INR APTT Fibrinogen Puncture Site Patient Temperature O2 Saturation ABG pH ABG pCO2 ABG pO2 ABG HCO3 ABG O2 Content ABG Base Excess ABG Methemoglobin Pablo Test Hemoglobin Carboxyhemoglobin O2 Delivery Device Liter Flow Vent Setting Inspired O2 Critical Value Sodium 137 Potassium 3.2 L Chloride 103 Carbon Dioxide 19.5 L Anion Gap 15 BUN 33 H Creatinine 1.54 H Estimated GFR 32 L POC Glucose 162 H Random Glucose 159 H Lactic Acid Calcium 6.1 L* Prot Corrected Calcium 7.2 L* D Phosphorus Magnesium 1.9 D Total Bilirubin 2.7 H AST 54 H ALT 24 Alkaline Phosphatase 68 Lactate Dehydrogenase Total Creatine Kinase CK-MB (CK-2) CK-MB (CK-2) % Troponin I Total Protein 4.7 L Albumin 2.8 L D Random Vancomycin Blood Type Blood Type Recheck Antibody Screen MTS Gel Crossmatch 12/19/17 12/19/17 12/19/17 07:10 10:10 10:10 WBC 21.6 H RBC 3.15 L Hgb 8.5 L Hct 25.9 L MCV 82.3 MCH 26.9 L MCHC 32.7 RDW 15.4 Plt Count 38 L MPV 10.7 Prelim Diff (Auto) Slide review pending Neut % (Auto) 95.1 H Lymph % (Auto) 2.5 L [place] % (Auto) 1.8 Eos % (Auto) 0.5 Baso % (Auto) 0.1 Neut # (Auto) 20.6 H Lymph # (Auto) 0.5 L [place] # (Auto) 0.4 Eos # (Auto) 0.1 Baso # (Auto) 0.0 WBC Differential Manual diff final Seg Neuts % (Manual) 49 Band Neuts % (Manual) 50 H Lymphocytes % (Manual) 1 L Monocytes % (Manual) Metamyelocytes % (Man) Myelocytes % (Man) Abs Neuts (Manual) 21.4 H Differential Comment . Toxic Vacuolation Present H Dohle Bodies Present H Platelet Estimate Low L Platelet Morphology Normal Ovalocytes PT INR APTT Fibrinogen Puncture Site Patient Temperature O2 Saturation ABG pH ABG pCO2 ABG pO2 ABG HCO3 ABG O2 Content ABG Base Excess ABG Methemoglobin Pablo Test Hemoglobin Carboxyhemoglobin O2 Delivery Device Liter Flow Vent Setting Inspired O2 Critical Value Sodium 138 Potassium 3.0 L Chloride 102 Carbon Dioxide 22.3 Anion Gap 14 BUN 31 H Creatinine 1.56 H Estimated GFR 32 L POC Glucose Random Glucose 133 H Lactic Acid Calcium 5.8 L* Prot Corrected Calcium 6.7 L* Phosphorus Magnesium Total Bilirubin AST ALT Alkaline Phosphatase Lactate Dehydrogenase Total Creatine Kinase CK-MB (CK-2) CK-MB (CK-2) % Troponin I Total Protein 5.0 L Albumin Random Vancomycin Blood Type Blood Type Recheck Antibody Screen MTS Gel Crossmatch 12/19/17 12/19/17 12/19/17 10:10 10:10 16:09 WBC RBC Hgb Hct MCV MCH MCHC RDW Plt Count MPV Prelim Diff (Auto) Neut % (Auto) Lymph % (Auto) [place] % (Auto) Eos % (Auto) Baso % (Auto) Neut # (Auto) Lymph # (Auto) [place] # (Auto) Eos # (Auto) Baso # (Auto) WBC Differential Seg Neuts % (Manual) Band Neuts % (Manual) Lymphocytes % (Manual) Monocytes % (Manual) Metamyelocytes % (Man) Myelocytes % (Man) Abs Neuts (Manual) Differential Comment Toxic Vacuolation Dohle Bodies Platelet Estimate Platelet Morphology Ovalocytes PT INR APTT Fibrinogen Puncture Site Patient Temperature O2 Saturation ABG pH ABG pCO2 ABG pO2 ABG HCO3 ABG O2 Content ABG Base Excess ABG Methemoglobin Pablo Test Hemoglobin Carboxyhemoglobin O2 Delivery Device Liter Flow Vent Setting Inspired O2 Critical Value Sodium Potassium Chloride Carbon Dioxide Anion Gap BUN Creatinine Estimated GFR POC Glucose 111 H Random Glucose Lactic Acid Calcium Prot Corrected Calcium Phosphorus Magnesium Total Bilirubin AST ALT Alkaline Phosphatase Lactate Dehydrogenase Total Creatine Kinase CK-MB (CK-2) CK-MB (CK-2) % Troponin I Total Protein Albumin Random Vancomycin Blood Type O Negative Blood Type Recheck Required Antibody Screen Negative MTS Gel Crossmatch See Detail 12/19/17 12/19/17 12/19/17 17:26 18:00 18:00 WBC 31.5 H RBC 3.37 L Hgb 9.1 L Hct 28.4 L MCV 84.1 MCH 26.8 L MCHC 31.9 L RDW 15.4 Plt Count 44 L MPV 10.4 Prelim Diff (Auto) Neut % (Auto) Lymph % (Auto) [place] % (Auto) Eos % (Auto) Baso % (Auto) Neut # (Auto) Lymph # (Auto) [place] # (Auto) Eos # (Auto) Baso # (Auto) WBC Differential Seg Neuts % (Manual) Band Neuts % (Manual) Lymphocytes % (Manual) Monocytes % (Manual) Metamyelocytes % (Man) Myelocytes % (Man) Abs Neuts (Manual) Differential Comment Toxic Vacuolation Dohle Bodies Platelet Estimate Platelet Morphology Ovalocytes PT INR APTT Fibrinogen Puncture Site Right femoral Patient Temperature 98.6 O2 Saturation 98 ABG pH 7.65 H* ABG pCO2 29 L ABG pO2 473 H ABG HCO3 33 H ABG O2 Content 13.0 ABG Base Excess 10.3 H ABG Methemoglobin 1.4 Pablo Test Present Hemoglobin 8.5 L Carboxyhemoglobin 0.6 O2 Delivery Device Ambu to tube Liter Flow 15.00 Vent Setting Inspired O2 100 Critical Value Yes Sodium 141 Potassium 3.3 L Chloride 103 Carbon Dioxide 18.3 L Anion Gap 20 H BUN 33 H Creatinine 2.04 H Estimated GFR 23 L POC Glucose Random Glucose 136 H Lactic Acid Calcium 5.4 L* Prot Corrected Calcium 6.4 L* Phosphorus 4.9 D Magnesium 1.8 Total Bilirubin AST ALT Alkaline Phosphatase Lactate Dehydrogenase 344 H Total Creatine Kinase 471 H CK-MB (CK-2) 4.2 H CK-MB (CK-2) % 0.9 Troponin I 5.59 H* D Total Protein 4.6 L Albumin Random Vancomycin Blood Type Blood Type Recheck Antibody Screen MTS Gel Crossmatch 12/19/17 12/19/17 12/19/17 18:00 18:00 18:00 WBC RBC Hgb Hct MCV MCH MCHC RDW Plt Count MPV Prelim Diff (Auto) Neut % (Auto) Lymph % (Auto) [place] % (Auto) Eos % (Auto) Baso % (Auto) Neut # (Auto) Lymph # (Auto) [place] # (Auto) Eos # (Auto) Baso # (Auto) WBC Differential Seg Neuts % (Manual) Band Neuts % (Manual) Lymphocytes % (Manual) Monocytes % (Manual) Metamyelocytes % (Man) Myelocytes % (Man) Abs Neuts (Manual) Differential Comment Toxic Vacuolation Dohle Bodies Platelet Estimate Platelet Morphology Ovalocytes PT 19.1 H INR 1.9 APTT Fibrinogen Puncture Site Patient Temperature O2 Saturation ABG pH ABG pCO2 ABG pO2 ABG HCO3 ABG O2 Content ABG Base Excess ABG Methemoglobin Pablo Test Hemoglobin Carboxyhemoglobin O2 Delivery Device Liter Flow Vent Setting Inspired O2 Critical Value Sodium Potassium Chloride Carbon Dioxide Anion Gap BUN Creatinine Estimated GFR POC Glucose Random Glucose Lactic Acid Calcium Prot Corrected Calcium Phosphorus Cancelled Magnesium Cancelled Total Bilirubin AST ALT Alkaline Phosphatase Lactate Dehydrogenase Total Creatine Kinase Cancelled CK-MB (CK-2) CK-MB (CK-2) % Troponin I Cancelled Total Protein Albumin Random Vancomycin Blood Type Blood Type Recheck Antibody Screen MTS Gel Crossmatch 12/19/17 12/19/17 12/19/17 18:00 18:00 18:00 WBC RBC Hgb Hct MCV MCH MCHC RDW Plt Count MPV Prelim Diff (Auto) Neut % (Auto) Lymph % (Auto) [place] % (Auto) Eos % (Auto) Baso % (Auto) Neut # (Auto) Lymph # (Auto) [place] # (Auto) Eos # (Auto) Baso # (Auto) WBC Differential Seg Neuts % (Manual) Band Neuts % (Manual) Lymphocytes % (Manual) Monocytes % (Manual) Metamyelocytes % (Man) Myelocytes % (Man) Abs Neuts (Manual) Differential Comment Toxic Vacuolation Dohle Bodies Platelet Estimate Platelet Morphology Ovalocytes PT INR APTT 53.3 H D Fibrinogen 177 L Puncture Site Patient Temperature O2 Saturation ABG pH ABG pCO2 ABG pO2 ABG HCO3 ABG O2 Content ABG Base Excess ABG Methemoglobin Pablo Test Hemoglobin Carboxyhemoglobin O2 Delivery Device Liter Flow Vent Setting Inspired O2 Critical Value Sodium Potassium Chloride Carbon Dioxide Anion Gap BUN Creatinine Estimated GFR POC Glucose Random Glucose Lactic Acid Calcium Prot Corrected Calcium Phosphorus Magnesium Total Bilirubin AST ALT Alkaline Phosphatase Lactate Dehydrogenase Cancelled Total Creatine Kinase CK-MB (CK-2) CK-MB (CK-2) % Troponin I Total Protein Albumin Random Vancomycin Blood Type Blood Type Recheck Antibody Screen MTS Gel Crossmatch 12/19/17 12/19/17 18:01 18:50 WBC RBC Hgb Hct MCV MCH MCHC RDW Plt Count MPV Prelim Diff (Auto) Neut % (Auto) Lymph % (Auto) [place] % (Auto) Eos % (Auto) Baso % (Auto) Neut # (Auto) Lymph # (Auto) [place] # (Auto) Eos # (Auto) Baso # (Auto) WBC Differential Seg Neuts % (Manual) Band Neuts % (Manual) Lymphocytes % (Manual) Monocytes % (Manual) Metamyelocytes % (Man) Myelocytes % (Man) Abs Neuts (Manual) Differential Comment Toxic Vacuolation Dohle Bodies Platelet Estimate Platelet Morphology Ovalocytes PT INR APTT Fibrinogen Puncture Site Right femoral Patient Temperature 98.6 O2 Saturation 98 ABG pH 7.24 L* ABG pCO2 43 H ABG pO2 337 H ABG HCO3 18 L ABG O2 Content 13.0 ABG Base Excess -8.1 L ABG Methemoglobin 1.2 Pablo Test Present Hemoglobin 8.8 L Carboxyhemoglobin 0.2 O2 Delivery Device Ventilator Liter Flow Vent Setting Prvc 16/500/+5/0.9 Inspired O2 100 Critical Value Yes Sodium Potassium Chloride Carbon Dioxide Anion Gap BUN Creatinine Estimated GFR POC Glucose Random Glucose Lactic Acid 8.7 H* Calcium Prot Corrected Calcium Phosphorus Magnesium Total Bilirubin AST ALT Alkaline Phosphatase Lactate Dehydrogenase Total Creatine Kinase CK-MB (CK-2) CK-MB (CK-2) % Troponin I Total Protein Albumin Random Vancomycin Blood Type Blood Type Recheck Antibody Screen MTS Gel Crossmatch - Imaging Impressions Chest X-Ray 12/19/17 00:00 CONCLUSION: 1. New small right pneumothorax. There are no signs of tension. 2. Possible pneumomediastinum. There is new soft tissue air in the left supraclavicular region. 3. Stable changes characteristic of pulmonary edema with bilateral mid and lower lung zone interstitial opacities. 4. Please note that the entire lung bases were not completely imaged on this examination. Chest X-Ray 12/19/17 00:00 CONCLUSION: 1. Interval placement of right chest tube with tip at the apex of the right hemithorax. The right pneumothorax has resolved. 2. Interval worsening of the airspace consolidation in the left lower lung zone. 3. Persistent questionable findings which could indicate a pneumomediastinum. <Chucky Christianson - Last Filed: 12/19/17 20:11> Assessment and Plan (1) Upper GI bleed Status: Acute Code(s): K92.2 - Gastrointestinal hemorrhage, unspecified - Plan Assessment: - Bloody output from OG tube- Pt S/P outpatient ureteral stent placement in [facility] center, sent to hospital for evaluation of fever- now in ICU mechanically ventilated, on two pressors, now in a-fib RVR since last night and on Amiodarone gtt (History of a-fib but according to notes was in sinus rhythm on admission) Of note, pt also with hematuria- Was on Eliquis for a-fib, this was discontinued 3 days prior to admission for outpatient procedure. Per at bedside, pt with history of gastric ulcer. Pt reports previous EGD but that it was awhile ago. Unable to obtain more detailed history, pt is awake but orally intubated and only able to shake head yes or no to questions At this time, pt too unstable for GI procedures. Recommend monitoring H/H closely and transfusing as needed. Protonix gtt. Plan: Too unstable for EGD Monitor H/H Transfuse as needed Protonix gtt Further recommendations based on clinical course Pt has been seen and examined by myself and Dr. Christianson and this note is written on his behalf <Heidi Camacho - Last Filed: 12/19/17 12:39> (1) Upper GI bleed Status: Acute Code(s): K92.2 - Gastrointestinal hemorrhage, unspecified - Attending Attestation Seen with mick Gordon as above. Discussed with patient while intubated and with the family. Will hold on any endoscopic evaluation while unstable . Blood transfusion as needed. Will follow up with you. Thank you for the consult. <Chucky Christianson - Last Filed: 12/19/17 20:11>
[2017-12-19] MEDS ORDERED: Pantoprazole Inj 80 MG in Sodium Chlor 0.9% Inj 35 ML IV.SIG ONE (12:47)
--- NOTE | 2017-12-19 12:58 | P.CONURO ---
History of Present Illness Service: urology Consult date: 12/18/17 Reason for Consult: hematuria Primary Care Provider: Mitchell Aviles MD Chief Complaint: Severe sepsis status post transfer from History of Present Illness: Pt was seen on 12/18/17 at the afternoon. This is an 82-year-old female. Admitted 12/17/17. Past medical history includes glaucoma, atrial fibrillation currently normal sinus rhythm on apixaban, recurrent nephrolithiasis. She has a h/o kidney stones had stent placed recently. On 03/27 patient underwent a cystoscopy, left stent removal, left ureteroscopic he with 6 basket retrieval/lithotripsy/left retrograde with left double-J stent placement by Postprocedure, patient became hypotensive is transferred emergency to [facility]. CT abdomen/pelvis revealed no abnormality findings. Patient is double-J stent placed the left. Patient is received ceftriaxone is currently on cefepime. Patient received a total of 3 L normal saline. Despite this patient came hypotensive requiring norepinephrine drip. We are asked to admit patient. Stent placed in place patient is currently awake and alert denies pain. She is at ICU, on mechanical vent earlier today due to resopiratory disteress and metab acidosis. On pressorss. BP is stable but still hypotensive. HR is 100. Urology consulted for hematuria Review of Systems All other systems reviewed negative except as stated in HPI PMFSH - History History Provided By: Patient, 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, Overhauler Helper / EMT - Medical History Medical History: Medical History (Last Updated 12/17/17 @ 20:16 by Jonah Bartlett MD) Anticoagulant long-term use Glaucoma History of hysterectomy Nephrolithiasis Paroxysmal atrial fibrillation - Surgical History Surgical History: Surgical History (Last Updated 12/17/17 @ 20:17 by Jonah Bartlett MD) History of appendectomy History of renal stent - Tobacco History Second Hand Smoke Exposure: No Tobacco Use In Past 30 Days: No Smoking Status: Never smoker - Alcohol History How Often Do You Have a Drink Containing Alcohol: Monthly or less - Substance Use History Substance History: No History of Abuse - Travel History Recent Travel in the [place] Within the Last 8 Weeks: No Recent Travel Out of the Country Within the Last 8 Weeks: No - Immunization History Tetanus Immunization: Unsure Hx Influenza Vaccine This Season: No Medications and Allergies Active Medications: Active Medications Acetaminophen (Tylenol) 650 mg PO Q6H PRN PRN Reason: PAIN 1-10 AND/OR FEVER >101F Last Admin: 12/18/17 20:59 Dose: 650 mg Hydrocodone Bitart/Acetaminophen ([place] 5/325) 1 tab PO Q4H PRN PRN Reason: PAIN SCALE 1 TO 5 Al Hydroxide/Mg Hydroxide (Milk Of Magnesia Liq) 30 ml PO Q12H PRN PRN Reason: Mild Constipation Al Hydroxide/Mg Hydroxide (Milk Of Magnesia Liq) 30 ml PO Q12H PRN PRN Reason: Mild Constipation Albuterol (Albuterol Neb (Prn)) 2.5 mg NEB Q2HR NEB PRN PRN Reason: SHORTNESS OF BREATH Albuterol (Duoneb Neb ([facility])) 1 ampul NEB Q4HR NEB FOR[facility]LY [facility], [facility] Last Admin: 12/19/17 11:16 Dose: 1 ampul Artificial Tears (Tears Naturale Opth Drops) 1 drop EACH EYE Q8H FOR[facility]LY [facility], [facility] Last Admin: 12/19/17 05:49 Dose: 1 drop Bisacodyl (Dulcolax Supp) 10 mg RECTAL DAILY PRN PRN Reason: SEVERE CONSITIPATION Chlorhexidine Gluconate (Chlorhexidine 2% Cloth) 3 pack TOPICAL DAILY@0400 [facility], [facility]1983 Stop: 12/23/17 03:59 Last Admin: 12/19/17 04:00 Dose: 3 pack Chlorhexidine Gluconate (Peridex 0.12% Oral Kit) 15 ml OROPHARYNG BID@0800, 2000 [facility], [facility] Last Admin: 12/19/17 08:55 Dose: 15 ml Cyanocobalamin (Vitamin B12) 1,000 mcg PO DAILY [facility], [facility] Last Admin: 12/19/17 08:35 Dose: 1,000 mcg Dextrose (D50w Vial) 50 ml IV.PUSH UNSCH PRN PRN Reason: PER HYPOGLYCEMIA PROTOCOL Dextrose (D50w Vial) 50 ml IV.PUSH UNSCH PRN PRN Reason: PER HYPOGLYCEMIA PROTOCOL Dorzolamide HCl (Trusopt 2% Opth Drops) 1 drop EACH EYE BID [facility], [facility] Last Admin: 12/19/17 08:32 Dose: 1 drop Glucagon (Glucagon Inj) 1 mg OTHER PRN PRN PRN Reason: for Hypoglycemia Protocol Pharmacy Profile Note (Vancomycin Consult Pharmacy) 0 mls @ 0 mls/hr OTHER UNSCH [facility]LY [facility], [facility] Potassium Chloride (Kcl 40 Meq Premix Inj) 40 meq in 100 mls @ 25 mls/hr IV.SIG Q2H PRN PRN Reason: For Potassium 2.8 - 3.2 mEq/L Potassium Chloride (Kcl 40 Meq Premix Inj) 40 meq in 100 mls @ 25 mls/hr IV.SIG UNSCH PRN PRN Reason: For Potassium 3.3 - 3.5 mEq/L Potassium Chloride (Kcl 20 Meq Premix Inj) 20 meq in 100 mls @ 50 mls/hr IV.SIG Q2H PRN PRN Reason: For Potassium 2.8 - 3.2 mEq/L Potassium Phosphate 30 mmol/ (Sodium Chloride) 260 mls @ 42 mls/hr IV.SIG UNSCH PRN PRN Reason: SEE LABEL COMMENTS Sodium Phosphate 30 mmol/ (Sodium Chloride) 260 mls @ 42 mls/hr IV.SIG UNSCH PRN PRN Reason: For Phosphorus < 2.5 mg/dL Vasopressin 40 unit/ Sodium (Chloride) 100 mls @ 6 mls/hr IV.CONT CONT ANIL; Protocol Last Admin: 12/19/17 08:33 Dose: 0.04 units/min, 6 mls/hr Magnesium Sulfate Inj 4 gm/ (Sodium Chloride) 100 mls @ 50 mls/hr IV.SIG UNSCH PRN PRN Reason: For Magnesium 0.9 - 1.1 mg/dL Magnesium Sulfate Inj 2 gm/ (Sodium Chloride) 100 mls @ 50 mls/hr IV.SIG UNSCH PRN PRN Reason: For Magnesium 1.2 - 1.6 mg/dL Last Infusion: 12/19/17 05:51 Dose: Infused Fentanyl (Fentanyl 10 Mcg/Ml Premix Drip) 2,500 mcg in 250 mls @ 5 mls/hr IV.SIG TITRATE PRN; Protocol PRN Reason: Per Protocol Propofol (Diprivan 1000 Mg/100 Ml Inj) 1,000 mg in 100 mls @ 1.887 mls/hr IV.CONT TITRATE PRN; Protocol PRN Reason: Per Protocol Norepinephrine Bitartrate 16 (mg/ Dextrose) 250 mls @ 1.87 mls/hr IV.CONT TITRATE PRN; Protocol PRN Reason: See Protocol Last Titration: 12/19/17 06:10 Dose: 22 mcg/min, 20.62 mls/hr Sodium Bicarbonate 150 meq/ (Dextrose) 1,000 mls @ 125 mls/hr IV.CONT .Q8H ANIL Last Admin: 12/19/17 08:34 Dose: 125 mls/hr Midazolam HCl (Versed Inj) 50 mg in 50 mls @ 2 mls/hr IV.CONT TITRATE PRN; Protocol PRN Reason: Per Protocol Albumin Human (Alburx 5% Inj) 500 mls @ 250 mls/hr IV.SIG Q8H ANIL Last Admin: 12/19/17 08:34 Dose: 999 mls/hr Amiodarone HCl 450 mg/ (Dextrose) 250 mls @ 33.33 mls/hr IV.CONT .Q7H31M ANIL; Protocol Last Admin: 12/19/17 08:32 Dose: 0.5 mg/min, 17 mls/hr Piperacillin/Tazobactam/Dextrose (Zosyn 2.25 Gm Premix) 50 mls @ 100 mls/hr IV.SIG Q6H ANIL Pantoprazole Sodium 80 mg/ (Sodium Chloride) 100 mls @ 10 mls/hr IV.CONT CONT ANIL Pantoprazole Sodium 80 mg/ (Sodium Chloride) 35 mls @ 420 mls/hr IV.SIG BOLUS ONE Stop: 12/19/17 12:51 Insulin Aspart (Novolog Insulin Suppl Scale Inj) 0 unit SQ Q6HR [facility], [facility]; Protocol Last Admin: 12/19/17 05:50 Dose: Not Given Lactulose (Lactulose Liq) 30 ml PO DAILY PRN PRN Reason: SEVERE CONSITIPATION Latanoprost (Xalatan 0.005% Opth Drops) 1 drop EACH EYE QPM [facility] Last Admin: 12/18/17 18:42 Dose: 1 drop Magnesium Oxide (Mag-Ox) 800 mg PO UNSCH PRN PRN Reason: For Magnesium 1.2 - 1.6 mg/dL Last Admin: 12/17/17 22:33 Dose: 800 mg Ondansetron HCl (Zofran Odt) 4 mg PO Q6H PRN PRN Reason: NAUSEA OR VOMITING Last Admin: 12/18/17 01:55 Dose: 4 mg Pat Own Med: Brimonidine (Alphgan P) 0.1% Oph Solution 0 each EACH EYE BID [facility], [facility] Pilocarpine HCl (Pilocar 1% Opth Drops) 1 drop EACH EYE TID [facility] Last Admin: 12/19/17 08:32 Dose: 1 drop Potassium Bicarb/Potassium Chloride (K-Lyte Cl Eff) 50 meq PO UNSCH PRN PRN Reason: For Potassium 3.3 - 3.5 mEq/L Potassium Phosphate (K-Phos Original) 2,000 mg PO Q4H PRN PRN Reason: Phosphorus Less Than 2.5 mg/dL Potassium Phosphate (K-Phos Original) 2,000 mg PO UNSCH PRN PRN Reason: SEE LABEL COMMENTS Senna/Docusate Sodium (Deyanira-Colace) 1 tab PO BID [facility] Last Admin: 12/19/17 08:35 Dose: 1 tab Sennosides (Senokot) 17.2 mg PO Q12H PRN PRN Reason: Moderate Constipation Sennosides (Senokot) 17.2 mg PO Q12H PRN PRN Reason: Moderate Constipation Sodium Chloride (Ns Flush) 0 ml IV.FLUSH DAILY [facility] Last Admin: 12/19/17 08:55 Dose: Not Given Sodium Chloride (Ns Flush) 2 ml IV.FLUSH PRN PRN PRN Reason: FLUSH AFTER USING IV ACCESS Sodium Chloride (Ns Flush) 2 ml IV.FLUSH BID [facility] Last Admin: 12/19/17 08:55 Dose: Not Given Terbutaline Sulfate (Brethine Inj) 1 mg SQ UNSCH PRN PRN Reason: For Extravasation Allergies Allergy/AdvReac Type Severity Reaction Status Date / Time No Known Allergies Allergy Unverified 12/17/17 14:47 Home Medications Medication Instructions Recorded Confirmed Type apixaban [Eliquis] 5 mg PO BID 12/17/17 12/17/17 History brimonidine [Alphagan P] 1 drp OPHTHALMIC (EYE) BID 12/17/17 12/17/17 History cyanocobalamin (vitamin B-12) 1,000 mcg PO DAILY 12/17/17 12/17/17 History [Vitamin B-12] dorzolamide 1 drp OPHTHALMIC (EYE) BID 12/17/17 12/17/17 History pilocarpine HCl 1 drp OPHTHALMIC (EYE) TID 12/17/17 12/17/17 History travoprost [Travatan Z] 1 drp OPHTHALMIC (EYE) QPM 12/17/17 12/17/17 History Physical Exam Vital Signs - 24 hr 12/18/17 15:31 12/18/17 15:32 12/18/17 16:00 Temperature 101.3 F H Pulse Rate 102 H 98 H Respiratory Rate 24 23 Blood Pressure 77/45 L Pulse Oximetry 100 12/18/17 20:00 12/18/17 20:26 12/18/17 20:28 Temperature 101.8 F H Pulse Rate 80 83 Respiratory Rate 20 26 H 20 Blood Pressure 97/49 L Pulse Oximetry 100 100 12/18/17 22:00 12/19/17 00:00 12/19/17 00:35 Temperature 100.8 F H Pulse Rate 101 H 122 H 122 H Respiratory Rate 20 Blood Pressure 109/64 Pulse Oximetry 100 12/19/17 01:50 12/19/17 02:00 12/19/17 04:00 Temperature 99.7 F H Pulse Rate 124 H 123 H 103 H Respiratory Rate 20 24 Blood Pressure 119/67 Pulse Oximetry 100 100 12/19/17 05:01 12/19/17 05:15 12/19/17 05:30 Temperature Pulse Rate 112 H 113 H 113 H Respiratory Rate 22 21 23 Blood Pressure 111/53 L 112/57 L 100/53 L Pulse Oximetry 98 99 99 12/19/17 05:45 12/19/17 06:00 12/19/17 06:15 Temperature Pulse Rate 114 H 120 H 117 H Respiratory Rate 23 22 20 Blood Pressure 110/55 L 119/58 L 125/56 L Pulse Oximetry 100 99 100 12/19/17 06:30 12/19/17 06:45 12/19/17 07:00 Temperature Pulse Rate 116 H 107 H 118 H Respiratory Rate 23 20 21 Blood Pressure 99/54 L 101/52 L 102/51 L Pulse Oximetry 99 97 100 12/19/17 07:15 12/19/17 07:30 12/19/17 07:45 Temperature Pulse Rate 115 H 109 H 120 H Respiratory Rate 21 23 25 H Blood Pressure 106/58 L 101/57 L 88/55 L Pulse Oximetry 100 100 98 12/19/17 08:00 12/19/17 08:01 12/19/17 08:15 Temperature 97.5 F L Pulse Rate 111 H 113 H 113 H Respiratory Rate 21 20 23 Blood Pressure 80/43 L 86/51 L Pulse Oximetry 99 100 96 12/19/17 08:31 12/19/17 08:45 12/19/17 09:00 Temperature Pulse Rate 118 H 114 H 105 H Respiratory Rate 23 22 23 Blood Pressure 92/54 L 88/49 L 82/57 L Pulse Oximetry 97 100 95 12/19/17 09:15 12/19/17 09:30 12/19/17 09:41 Temperature Pulse Rate 114 H 113 H 109 H Respiratory Rate 17 27 H 22 Blood Pressure 86/53 L 79/51 L 87/47 L Pulse Oximetry 95 99 99 12/19/17 09:45 12/19/17 10:00 12/19/17 10:15 Temperature Pulse Rate 111 H 110 H 113 H Respiratory Rate 19 23 20 Blood Pressure 83/50 L 86/54 L 78/42 L Pulse Oximetry 94 L 92 L 96 12/19/17 10:30 12/19/17 10:45 12/19/17 11:17 Temperature Pulse Rate 110 H 113 H 111 H Respiratory Rate 21 23 23 Blood Pressure 87/51 L 87/50 L Pulse Oximetry 99 96 100 Physical Exam: GENERAL: This is a well-nourished, well-developed patient, in no apparent distress. HEAD: Atraumatic. Normocephalic. . CARDIOVASCULAR: IRregular rhythm, tachy, without murmurs RESPIRATORY: Clear to auscultation. On ventilator GASTROINTESTINAL: Abdomen soft, non-tender. GENITOURINARY: [place] cath is in place draining light red urine MUSCULOSKELETAL: Extremities without clubbing, cyanosis, or edema. NEUROLOGICAL: Awake and alert. Laboratory Results - last 24 hr 12/18/17 12/18/17 12/18/17 13:10 13:10 13:10 WBC 14.9 H RBC 3.50 L Hgb 9.6 L Hct 29.5 L MCV 84.3 MCH 27.3 MCHC 32.4 RDW 15.6 Plt Count 65 L MPV 10.1 Prelim Diff (Auto) Neut % (Auto) Lymph % (Auto) [place] % (Auto) Eos % (Auto) Baso % (Auto) Neut # (Auto) Lymph # (Auto) [place] # (Auto) Eos # (Auto) Baso # (Auto) WBC Differential Seg Neuts % (Manual) Band Neuts % (Manual) Lymphocytes % (Manual) Monocytes % (Manual) Metamyelocytes % (Man) Myelocytes % (Man) Abs Neuts (Manual) Differential Comment Toxic Vacuolation Dohle Bodies Platelet Estimate Platelet Morphology Ovalocytes Fibrinogen D-Dimer Quant (PE/DVT) Sodium 140 Potassium 3.3 L Chloride 109 H Carbon Dioxide 18.9 L Anion Gap 12 BUN 31 H Creatinine 1.23 H Estimated GFR 42 L POC Glucose Random Glucose 113 H Lactic Acid 2.3 H Calcium 6.6 L* Prot Corrected Calcium 8.0 L Magnesium Total Bilirubin 1.5 H AST 49 H ALT 25 Alkaline Phosphatase 72 Total Protein 4.4 L Albumin 2.1 L Random Vancomycin Blood Type Blood Type Recheck Antibody Screen 12/18/17 12/18/17 12/18/17 13:10 13:10 17:49 WBC RBC Hgb Hct MCV MCH MCHC RDW Plt Count MPV Prelim Diff (Auto) Neut % (Auto) Lymph % (Auto) [place] % (Auto) Eos % (Auto) Baso % (Auto) Neut # (Auto) Lymph # (Auto) [place] # (Auto) Eos # (Auto) Baso # (Auto) WBC Differential Seg Neuts % (Manual) Band Neuts % (Manual) Lymphocytes % (Manual) Monocytes % (Manual) Metamyelocytes % (Man) Myelocytes % (Man) Abs Neuts (Manual) Differential Comment Toxic Vacuolation Dohle Bodies Platelet Estimate Platelet Morphology Ovalocytes Fibrinogen 150 L D-Dimer Quant (PE/DVT) Greater than 35.20 H Sodium Potassium Chloride Carbon Dioxide Anion Gap BUN Creatinine Estimated GFR POC Glucose 102 Random Glucose Lactic Acid Calcium Prot Corrected Calcium Magnesium Total Bilirubin AST ALT Alkaline Phosphatase Total Protein Albumin Random Vancomycin Blood Type Blood Type Recheck Antibody Screen 12/18/17 12/18/17 12/19/17 20:21 23:41 04:45 WBC RBC Hgb Hct MCV MCH MCHC RDW Plt Count MPV Prelim Diff (Auto) Neut % (Auto) Lymph % (Auto) [place] % (Auto) Eos % (Auto) Baso % (Auto) Neut # (Auto) Lymph # (Auto) [place] # (Auto) Eos # (Auto) Baso # (Auto) WBC Differential Seg Neuts % (Manual) Band Neuts % (Manual) Lymphocytes % (Manual) Monocytes % (Manual) Metamyelocytes % (Man) Myelocytes % (Man) Abs Neuts (Manual) Differential Comment Toxic Vacuolation Dohle Bodies Platelet Estimate Platelet Morphology Ovalocytes Fibrinogen D-Dimer Quant (PE/DVT) Sodium Potassium Chloride Carbon Dioxide Anion Gap BUN Creatinine Estimated GFR POC Glucose 165 H Random Glucose Lactic Acid 2.3 H Calcium Prot Corrected Calcium Magnesium Total Bilirubin AST ALT Alkaline Phosphatase Total Protein Albumin Random Vancomycin 7.8 Blood Type Blood Type Recheck Antibody Screen 12/19/17 12/19/17 12/19/17 04:45 04:45 05:39 WBC 21.4 H RBC 3.27 L Hgb 8.9 L Hct 26.9 L MCV 82.1 MCH 27.4 MCHC 33.3 RDW 15.2 Plt Count 45 L D MPV 10.7 Prelim Diff (Auto) Slide review pending Neut % (Auto) 96.7 H Lymph % (Auto) 2.1 L [place] % (Auto) 1.0 Eos % (Auto) 0.1 Baso % (Auto) 0.1 Neut # (Auto) 20.7 H Lymph # (Auto) 0.5 L [place] # (Auto) 0.2 Eos # (Auto) 0.0 Baso # (Auto) 0.0 WBC Differential Manual diff final Seg Neuts % (Manual) 50 Band Neuts % (Manual) 35 H Lymphocytes % (Manual) 4 L Monocytes % (Manual) 3 Metamyelocytes % (Man) 7 H Myelocytes % (Man) 1 H Abs Neuts (Manual) 19.9 H Differential Comment . Toxic Vacuolation Present H Dohle Bodies Present H Platelet Estimate Low L Platelet Morphology Normal Ovalocytes 1+ H Fibrinogen D-Dimer Quant (PE/DVT) Sodium 137 Potassium 3.2 L Chloride 103 Carbon Dioxide 19.5 L Anion Gap 15 BUN 33 H Creatinine 1.54 H Estimated GFR 32 L POC Glucose 162 H Random Glucose 159 H Lactic Acid Calcium 6.1 L* Prot Corrected Calcium 7.2 L* D Magnesium 1.9 D Total Bilirubin 2.7 H AST 54 H ALT 24 Alkaline Phosphatase 68 Total Protein 4.7 L Albumin 2.8 L D Random Vancomycin Blood Type Blood Type Recheck Antibody Screen 12/19/17 12/19/17 12/19/17 07:10 10:10 10:10 WBC 21.6 H RBC 3.15 L Hgb 8.5 L Hct 25.9 L MCV 82.3 MCH 26.9 L MCHC 32.7 RDW 15.4 Plt Count 38 L MPV 10.7 Prelim Diff (Auto) Slide review pending Neut % (Auto) 95.1 H Lymph % (Auto) 2.5 L [place] % (Auto) 1.8 Eos % (Auto) 0.5 Baso % (Auto) 0.1 Neut # (Auto) 20.6 H Lymph # (Auto) 0.5 L [place] # (Auto) 0.4 Eos # (Auto) 0.1 Baso # (Auto) 0.0 WBC Differential Manual diff final Seg Neuts % (Manual) 49 Band Neuts % (Manual) 50 H Lymphocytes % (Manual) 1 L Monocytes % (Manual) Metamyelocytes % (Man) Myelocytes % (Man) Abs Neuts (Manual) 21.4 H Differential Comment . Toxic Vacuolation Present H Dohle Bodies Present H Platelet Estimate Low L Platelet Morphology Normal Ovalocytes Fibrinogen D-Dimer Quant (PE/DVT) Sodium 138 Potassium 3.0 L Chloride 102 Carbon Dioxide 22.3 Anion Gap 14 BUN 31 H Creatinine 1.56 H Estimated GFR 32 L POC Glucose Random Glucose 133 H Lactic Acid Calcium 5.8 L* Prot Corrected Calcium 6.7 L* Magnesium Total Bilirubin AST ALT Alkaline Phosphatase Total Protein 5.0 L Albumin Random Vancomycin Blood Type Blood Type Recheck Antibody Screen 12/19/17 10:10 WBC RBC Hgb Hct MCV MCH MCHC RDW Plt Count MPV Prelim Diff (Auto) Neut % (Auto) Lymph % (Auto) [place] % (Auto) Eos % (Auto) Baso % (Auto) Neut # (Auto) Lymph # (Auto) [place] # (Auto) Eos # (Auto) Baso # (Auto) WBC Differential Seg Neuts % (Manual) Band Neuts % (Manual) Lymphocytes % (Manual) Monocytes % (Manual) Metamyelocytes % (Man) Myelocytes % (Man) Abs Neuts (Manual) Differential Comment Toxic Vacuolation Dohle Bodies Platelet Estimate Platelet Morphology Ovalocytes Fibrinogen D-Dimer Quant (PE/DVT) Sodium Potassium Chloride Carbon Dioxide Anion Gap BUN Creatinine Estimated GFR POC Glucose Random Glucose Lactic Acid Calcium Prot Corrected Calcium Magnesium Total Bilirubin AST ALT Alkaline Phosphatase Total Protein Albumin Random Vancomycin Blood Type O Negative Blood Type Recheck Required Antibody Screen Negative Microbiology 12/17/17 14:50 Aerobic Blood Culture - Preliminary Blood - Peripheral No growth in 2 days Anaerobic Blood Culture - Preliminary No growth in 2 days 12/17/17 14:55 Aerobic Blood Culture - Preliminary Blood - Peripheral No growth in 2 days Anaerobic Blood Culture - Preliminary No growth in 2 days 12/17/17 15:35 Urine Culture - Final Clean Catch Urine No growth in 48 hours Result Diagrams: 12/19/17 10:10 12/19/17 10:10 Imaging: ITS Impressions Abdomen/Pelvis CT 12/17/17 15:01 CONCLUSION: Good position of double-J stent. There is no evidence of abscess. Chest X-Ray 12/18/17 00:00 CONCLUSION: 1. ETT in good position. NGT beyond the GE junction. Stable right IJ central line. 2. Positive fluid balance with persistent bilateral lower lobe airspace disease. Assessment and Plan - Plan 82y.o admitted due to sepsis, hypotension post litho/stent placement earlier on 12/17. UC negative - No acute intervention needed - Continue care and management as per ICU team - Hematuria is expected post procedure and stent placement - Keep valencia in, monitor I&O - Hematuria will resolve with time Urology will remain available as needed Discussed Condition With: Dr Donita VU attending who agrees with this plan
[2017-12-19] MEDS ORDERED: Pantoprazole Inj 80 MG in Sodium Chlor 0.9% Inj 100 ML IV.CONT SCH (13:00)
--- NOTE | 2017-12-19 14:24 | P.PNURO ---
Subjective Patient symptoms today: Pt was seen at the bedside. Intubated. had a. fib overnight. ICU is managing. Hematuria is resolving. Tried CPAP for 30min but got tired and HR started increasing, back to mech vent. Otherwise not a lot of changes compare to yesterday Objective Vital Signs: Vital Signs 12/18/17 15:31 12/18/17 15:32 12/18/17 16:00 Temperature 101.3 F H Pulse Rate 102 H 98 H Respiratory Rate 24 23 Blood Pressure 77/45 L Pulse Oximetry 100 12/18/17 20:00 12/18/17 20:26 12/18/17 20:28 Temperature 101.8 F H Pulse Rate 80 83 Respiratory Rate 20 26 H 20 Blood Pressure 97/49 L Pulse Oximetry 100 100 12/18/17 22:00 12/19/17 00:00 12/19/17 00:35 Temperature 100.8 F H Pulse Rate 101 H 122 H 122 H Respiratory Rate 20 Blood Pressure 109/64 Pulse Oximetry 100 12/19/17 01:50 12/19/17 02:00 12/19/17 04:00 Temperature 99.7 F H Pulse Rate 124 H 123 H 103 H Respiratory Rate 20 24 Blood Pressure 119/67 Pulse Oximetry 100 100 12/19/17 05:01 12/19/17 05:15 12/19/17 05:30 Temperature Pulse Rate 112 H 113 H 113 H Respiratory Rate 22 21 23 Blood Pressure 111/53 L 112/57 L 100/53 L Pulse Oximetry 98 99 99 12/19/17 05:45 12/19/17 06:00 12/19/17 06:15 Temperature Pulse Rate 114 H 120 H 117 H Respiratory Rate 23 22 20 Blood Pressure 110/55 L 119/58 L 125/56 L Pulse Oximetry 100 99 100 12/19/17 06:30 12/19/17 06:45 12/19/17 07:00 Temperature Pulse Rate 116 H 107 H 118 H Respiratory Rate 23 20 21 Blood Pressure 99/54 L 101/52 L 102/51 L Pulse Oximetry 99 97 100 12/19/17 07:15 12/19/17 07:30 12/19/17 07:45 Temperature Pulse Rate 115 H 109 H 120 H Respiratory Rate 21 23 25 H Blood Pressure 106/58 L 101/57 L 88/55 L Pulse Oximetry 100 100 98 12/19/17 08:00 12/19/17 08:01 12/19/17 08:15 Temperature 97.5 F L Pulse Rate 111 H 113 H 113 H Respiratory Rate 21 20 23 Blood Pressure 80/43 L 86/51 L Pulse Oximetry 99 100 96 12/19/17 08:31 12/19/17 08:45 12/19/17 09:00 Temperature Pulse Rate 118 H 114 H 105 H Respiratory Rate 23 22 23 Blood Pressure 92/54 L 88/49 L 82/57 L Pulse Oximetry 97 100 95 12/19/17 09:15 12/19/17 09:30 12/19/17 09:41 Temperature Pulse Rate 114 H 113 H 109 H Respiratory Rate 17 27 H 22 Blood Pressure 86/53 L 79/51 L 87/47 L Pulse Oximetry 95 99 99 12/19/17 09:45 12/19/17 10:00 12/19/17 10:15 Temperature Pulse Rate 111 H 110 H 113 H Respiratory Rate 19 23 20 Blood Pressure 83/50 L 86/54 L 78/42 L Pulse Oximetry 94 L 92 L 96 12/19/17 10:30 12/19/17 10:45 12/19/17 11:17 Temperature Pulse Rate 110 H 113 H 111 H Respiratory Rate 21 23 23 Blood Pressure 87/51 L 87/50 L Pulse Oximetry 99 96 100 Intake & Output 12/18/17 12/19/17 12/19/17 18:59 06:59 18:59 Intake Total 2650 / 2650 2695 / 2695 1250 / 1250 Output Total 3875 / 3875 Balance 2650 / 2650 -1180 / -1180 1250 / 1250 Weight 66.2 kg Intake: IV 2650 / 2650 2695 / 2695 1250 / 1250 Cordarone Inj 450 MG In D5W Inj 250 / 250 241 ML @ 1 MG/MIN 33.33 mls/hr IV.CONT .Q7H31M DEVIN Rx#: [id number] LR 1000 mL Inj 1,000 ML @ 100 1000 / 1000 mls/hr IV.CONT .Q10H DEVIN Rx#: [id number] Sodium Bicarbonate 8.4% Inj 150 1000 / 1000 1000 / 1000 1000 / 1000 MEQ In D5W Inj 850 ML @ 125 mls/hr IV.CONT .Q8H DEVIN Rx#: [id number] Pitressin Inj 40 UNIT In NS Inj 100 / 100 100 / 100 98 ML @ 0.04 UNITS/MIN 6 mls/ hr IV.CONT CONT DEVIN Rx#: [id number] Alburx 5% Inj 500 ML @ 250 mls/ 500 / 500 1045 / 1045 hr IV.SIG Q8H DEVIN Rx#:[id number] Cordarone Inj 150 MG In D5W Inj 100 / 100 97 ML @ 100 mls/hr IV.SIG ONCE ONE Rx#:[id number] Magnesium Sulfate Inj 2 GM In 100 / 100 NS Inj 96 ML @ 50 mls/hr IV.SIG UNSCH PRN Rx#:[id number] Zosyn 3.375 GM Premix 50 ML @ 50 / 50 150 / 150 100 mls/hr IV.SIG Q6H DEVIN Rx#: [id number] KCl 20 mEq Premix Inj 20 meq In 200 / 200 100 ml @ 50 mls/hr IV.SIG Q2H PRN Rx#:[id number] Output: Urine 2600 / 2600 Urine Amount (Catheter) 725 / 725 Indwelling Urethral Catheter 725 / 725 Gastric Drainage 550 / 550 Oral Orogastric Tube 550 / 550 Result Diagrams: 12/19/17 10:10 12/19/17 10:10 Medications and IVs: Active Medications Generic Name Dose Route Start Last Admin Trade Name Freq PRN Reason Stop Dose Admin Acetaminophen 650 mg 12/17/17 20:02 12/18/17 20:59 Tylenol PO 650 mg Q6H PRN Administration PAIN 1-10 AND/OR FEVER >101F Hydrocodone Bitart/Acetaminophen 1 tab 12/17/17 20:02 [place] 5/325 PO Q4H PRN PAIN SCALE 1 TO 5 Al Hydroxide/Mg Hydroxide 30 ml 12/17/17 18:03 Milk Of Magnesia Liq PO Q12H PRN Mild Constipation Al Hydroxide/Mg Hydroxide 30 ml 12/17/17 20:00 Milk Of Magnesia Liq PO Q12H PRN Mild Constipation Albuterol 2.5 mg 12/17/17 21:00 Albuterol Neb (Prn) NEB Q2HR NEB PRN SHORTNESS OF BREATH Albuterol 1 ampul 12/17/17 20:45 12/19/17 11:16 Duoneb Neb (Devin) NEB 1 ampul Q4HR NEB DEVIN Administration Artificial Tears 1 drop 12/18/17 06:00 12/19/17 05:49 Tears Naturale Opth Drops EACH EYE 1 drop Q8H DEVIN Administration Bisacodyl 10 mg 12/17/17 20:00 Dulcolax Supp RECTAL DAILY PRN SEVERE CONSITIPATION Chlorhexidine Gluconate 3 pack 12/18/17 04:00 12/19/17 04:00 Chlorhexidine 2% Cloth TOPICAL 12/23/17 03:59 3 pack DAILY@0400 DEVIN Administration Chlorhexidine Gluconate 15 ml 12/18/17 08:00 12/19/17 08:55 Peridex 0.12% Oral Kit OROPHARYNG 15 ml BID@0800,2000 DEVIN Administration Cyanocobalamin 1,000 mcg 12/18/17 09:00 12/19/17 08:35 Vitamin B12 PO 1,000 mcg DAILY DEVIN Administration Dextrose 50 ml 12/17/17 20:28 D50w Vial IV.PUSH UNSCH PRN PER HYPOGLYCEMIA PROTOCOL Dextrose 50 ml 12/17/17 20:28 D50w Vial IV.PUSH UNSCH PRN PER HYPOGLYCEMIA PROTOCOL Dorzolamide HCl 1 drop 12/18/17 09:00 12/19/17 08:32 Trusopt 2% Opth Drops EACH EYE 1 drop BID DEVIN Administration Glucagon 1 mg 12/17/17 20:28 Glucagon Inj OTHER PRN PRN for Hypoglycemia Protocol Pharmacy Profile Note 0 mls @ 0 mls/hr 12/17/17 21:00 Vancomycin Consult Pharmacy OTHER UNSCH DEVIN As Directed Potassium Chloride 40 meq in 100 mls @ 25 mls/hr 12/17/17 20:28 Kcl 40 Meq Premix Inj IV.SIG Q2H PRN For Potassium 2.8 - 3.2 mEq/L Potassium Chloride 40 meq in 100 mls @ 25 mls/hr 12/17/17 20:28 Kcl 40 Meq Premix Inj IV.SIG UNSCH PRN For Potassium 3.3 - 3.5 mEq/L Potassium Chloride 20 meq in 100 mls @ 50 mls/hr 12/17/17 20:28 Kcl 20 Meq Premix Inj IV.SIG Q2H PRN For Potassium 2.8 - 3.2 mEq/L Potassium Phosphate 30 mmol/ 260 mls @ 42 mls/hr 12/17/17 20:28 Sodium Chloride IV.SIG UNSCH PRN SEE LABEL COMMENTS Sodium Phosphate 30 mmol/ 260 mls @ 42 mls/hr 12/17/17 20:28 Sodium Chloride IV.SIG UNSCH PRN For Phosphorus < 2.5 mg/dL Vasopressin 40 unit/ Sodium 100 mls @ 6 mls/hr 12/17/17 22:15 12/19/17 08:33 Chloride IV.CONT 0.04 units/min CONT DEVIN 6 mls/hr Administration Protocol 0.04 UNITS/MIN Magnesium Sulfate Inj 4 gm/ 100 mls @ 50 mls/hr 12/17/17 22:10 Sodium Chloride IV.SIG UNSCH PRN For Magnesium 0.9 - 1.1 mg/dL Magnesium Sulfate Inj 2 gm/ 100 mls @ 50 mls/hr 12/17/17 22:12 12/19/17 05:51 Sodium Chloride IV.SIG Infused UNSCH PRN Infusion For Magnesium 1.2 - 1.6 mg/dL Fentanyl 2,500 mcg in 250 mls @ 5 mls/hr 12/18/17 05:04 Fentanyl 10 Mcg/Ml Premix Drip IV.SIG TITRATE PRN Per Protocol Protocol 50 MCG/HR Propofol 1,000 mg in 100 mls @ 1.887 mls/hr 12/18/17 05:03 Diprivan 1000 Mg/100 Ml Inj IV.CONT TITRATE PRN Per Protocol Protocol 5 MCG/KG/MIN Norepinephrine Bitartrate 16 250 mls @ 1.87 mls/hr 12/18/17 06:25 12/19/17 06 :10 mg/ Dextrose IV.CONT 22 mcg/min TITRATE PRN 20.62 mls/hr See Protocol Titration Protocol 2 MCG/MIN Sodium Bicarbonate 150 meq/ 1,000 mls @ 125 mls/hr 12/18/17 08:00 12/19/17 08 :34 Dextrose IV.CONT 125 mls/hr .Q8H DEVIN Administration Midazolam HCl 50 mg in 50 mls @ 2 mls/hr 12/18/17 07:39 Versed Inj IV.CONT TITRATE PRN Per Protocol Protocol 2 MG/HR Albumin Human 500 mls @ 250 mls/hr 12/18/17 09:00 12/19/17 08:34 Alburx 5% Inj IV.SIG 999 mls/hr Q8H DEVIN Administration Amiodarone HCl 450 mg/ 250 mls @ 33.33 mls/hr 12/18/17 23:45 12/19/17 08:32 Dextrose IV.CONT 0.5 mg/min .Q7H31M DEVIN 17 mls/hr Administration Protocol 1 MG/MIN Piperacillin/Tazobactam/Dextrose 50 mls @ 100 mls/hr 12/19/17 17:00 Zosyn 2.25 Gm Premix IV.SIG Q6H DEVIN Pantoprazole Sodium 80 mg/ 100 mls @ 10 mls/hr 12/19/17 13:00 Sodium Chloride IV.CONT CONT [facility] Insulin Aspart 0 unit 12/18/17 00:00 12/19/17 14:06 Novolog Insulin Suppl Scale Inj SQ Not Given Q6HR [facility] Protocol Lactulose 30 ml 12/17/17 20:00 Lactulose Liq PO DAILY PRN SEVERE CONSITIPATION Latanoprost 1 drop 12/18/17 18:00 12/18/17 18:42 Xalatan 0.005% Opth Drops EACH EYE 1 drop QPM DEVIN Administration Magnesium Oxide 800 mg 12/17/17 20:28 12/17/17 22:33 Mag-Ox PO 800 mg UNSCH PRN Administration For Magnesium 1.2 - 1.6 mg/dL Ondansetron HCl 4 mg 12/17/17 20:45 12/18/17 01:55 Zofran Odt PO 4 mg Q6H PRN Administration NAUSEA OR VOMITING Pat Own Med: 0 each 12/18/17 18:00 Brimonidine (Alphgan EACH EYE P) 0.1% Oph BID DEVIN Solution Pilocarpine HCl 1 drop 12/18/17 09:00 12/19/17 08:32 Pilocar 1% Opth Drops EACH EYE 1 drop TID DEVIN Administration Potassium Bicarb/Potassium Chloride 50 meq 12/17/17 20:28 K-Lyte Cl Eff PO UNSCH PRN For Potassium 3.3 - 3.5 mEq/L Potassium Phosphate 2,000 mg 12/17/17 20:28 K-Phos Original PO Q4H PRN Phosphorus Less Than 2.5 mg/dL Potassium Phosphate 2,000 mg 12/17/17 20:28 K-Phos Original PO UNSCH PRN SEE LABEL COMMENTS Senna/Docusate Sodium 1 tab 12/17/17 21:00 12/19/17 08:35 Deyanira-Colace PO 1 tab BID DEVIN Administration Sennosides 17.2 mg 12/17/17 18:03 Senokot PO Q12H PRN Moderate Constipation Sennosides 17.2 mg 12/17/17 20:00 Senokot PO Q12H PRN Moderate Constipation Sodium Chloride 0 ml 12/17/17 20:00 12/19/17 08:55 Ns Flush IV.FLUSH Not Given DAILY DEVIN Sodium Chloride 2 ml 12/17/17 20:02 Ns Flush IV.FLUSH PRN PRN FLUSH AFTER USING IV ACCESS Sodium Chloride 2 ml 12/17/17 21:00 12/19/17 08:55 Ns Flush IV.FLUSH Not Given BID DEVIN Terbutaline Sulfate 1 mg 12/17/17 19:07 Brethine Inj SQ UNSCH PRN For Extravasation Objective Remarks: NAD Intubated Irregular beat Valencia is in place, good UO Assessment and Plan - Plan 82y.o admitted due to sepsis, hypotension post litho/stent placement earlier on 12/17. UC negative - No acute intervention needed - Continue care and management as per ICU team - Hematuria is expected post procedure and stent placement - Keep valencia in, monitor I&O - Hematuria resolving Urology will remain available as needed
--- NOTE | 2017-12-19 14:52 | P.PNID ---
Subjective Remarks: Patient is an 82-year-old female, brought into the hospital from an outpatient surgery center, for evaluation of fevers, and hypotension. Patient has had problem with kidney stones in the past, and in the past she had passed the stones spontaneously. During the first week of November she was admitted at [facility] when she had trouble and she was in septic shock at that time. This history is from the patient's son. She had undergone cystoscopy and had placement of a stent at that time. Her blood cultures were negative, and her urine culture had E. coli. Patient was discharged on Augmentin 503 times a day , and she had 7 days of antibiotic treatment. According to the son another urine was sent, and it still showed urinary tract infection, so the patient was given another prescription and this time received Cipro. She was supposed to get an her stent placed but this was postponed due to the persistence of the infection. Patient went to have her stent removed on the day of admission, and she underwent cystoscopy, left stent removal, removal of the stone with the basket, lithotripsy, and placement of a new left double-J ureteric stent. Postoperatively she apparently had fevers up to 102 and became hypotensive, so she was transferred to the hospital for further evaluation and treatment. When she presented she was profoundly neutropenic, hypotensive. She received fluid resuscitation and remained hypotensive and is currently on pressors. She ended up getting intubated this morning. She was also very acidotic. Her urinalysis showed significant pyuria and hematuria. Patient is afebrile. Her white count is now up to 13.3. Her initial creatinine was less than 1, and it had gone up to 1.41. Her chest x-ray now is showing by basilar opacities. Patient is on the vent. Looks comfortable. Follows commands. On pressors including Levophed. Afib. Cultures have no growth. Allergies/Adverse Reactions: Allergies No Known Allergies Allergy (Unverified 12/17/17 14:47) Objective Vital Signs 12/18/17 15:31 12/18/17 15:32 12/18/17 16:00 Temperature 101.3 F H Pulse Rate 102 H 98 H Respiratory Rate 24 23 Blood Pressure 77/45 L Pulse Oximetry 100 12/18/17 20:00 12/18/17 20:26 12/18/17 20:28 Temperature 101.8 F H Pulse Rate 80 83 Respiratory Rate 20 26 H 20 Blood Pressure 97/49 L Pulse Oximetry 100 100 12/18/17 22:00 12/19/17 00:00 12/19/17 00:35 Temperature 100.8 F H Pulse Rate 101 H 122 H 122 H Respiratory Rate 20 Blood Pressure 109/64 Pulse Oximetry 100 12/19/17 01:50 12/19/17 02:00 12/19/17 04:00 Temperature 99.7 F H Pulse Rate 124 H 123 H 103 H Respiratory Rate 20 24 Blood Pressure 119/67 Pulse Oximetry 100 100 12/19/17 05:01 12/19/17 05:15 12/19/17 05:30 Temperature Pulse Rate 112 H 113 H 113 H Respiratory Rate 22 21 23 Blood Pressure 111/53 L 112/57 L 100/53 L Pulse Oximetry 98 99 99 12/19/17 05:45 12/19/17 06:00 12/19/17 06:15 Temperature Pulse Rate 114 H 120 H 117 H Respiratory Rate 23 22 20 Blood Pressure 110/55 L 119/58 L 125/56 L Pulse Oximetry 100 99 100 12/19/17 06:30 12/19/17 06:45 12/19/17 07:00 Temperature Pulse Rate 116 H 107 H 118 H Respiratory Rate 23 20 21 Blood Pressure 99/54 L 101/52 L 102/51 L Pulse Oximetry 99 97 100 12/19/17 07:15 12/19/17 07:30 12/19/17 07:45 Temperature Pulse Rate 115 H 109 H 120 H Respiratory Rate 21 23 25 H Blood Pressure 106/58 L 101/57 L 88/55 L Pulse Oximetry 100 100 98 12/19/17 08:00 12/19/17 08:01 12/19/17 08:15 Temperature 97.5 F L Pulse Rate 111 H 113 H 113 H Respiratory Rate 21 20 23 Blood Pressure 80/43 L 86/51 L Pulse Oximetry 99 100 96 12/19/17 08:31 12/19/17 08:45 12/19/17 09:00 Temperature Pulse Rate 118 H 114 H 105 H Respiratory Rate 23 22 23 Blood Pressure 92/54 L 88/49 L 82/57 L Pulse Oximetry 97 100 95 12/19/17 09:15 12/19/17 09:30 12/19/17 09:41 Temperature Pulse Rate 114 H 113 H 109 H Respiratory Rate 17 27 H 22 Blood Pressure 86/53 L 79/51 L 87/47 L Pulse Oximetry 95 99 99 12/19/17 09:45 12/19/17 10:00 12/19/17 10:15 Temperature Pulse Rate 111 H 110 H 113 H Respiratory Rate 19 23 20 Blood Pressure 83/50 L 86/54 L 78/42 L Pulse Oximetry 94 L 92 L 96 12/19/17 10:30 12/19/17 10:45 12/19/17 11:17 Temperature Pulse Rate 110 H 113 H 111 H Respiratory Rate 21 23 23 Blood Pressure 87/51 L 87/50 L Pulse Oximetry 99 96 100 12/19/17 12:00 Temperature 97.5 F L Pulse Rate 111 H Respiratory Rate Blood Pressure Pulse Oximetry Intake & Output 12/18/17 12/19/17 12/19/17 18:59 06:59 18:59 Intake Total 2650 / 2650 2695 / 2695 1250 / 1250 Output Total 3875 / 3875 Balance 2650 / 2650 -1180 / -1180 1250 / 1250 Weight 66.2 kg Intake: IV 2650 / 2650 2695 / 2695 1250 / 1250 Cordarone Inj 450 MG In D5W Inj 250 / 250 241 ML @ 1 MG/MIN 33.33 mls/hr IV.CONT .Q7H31M ANIL Rx#: [id number] LR 1000 mL Inj 1,000 ML @ 100 1000 / 1000 mls/hr IV.CONT .Q10H ANIL Rx#: [id number] Sodium Bicarbonate 8.4% Inj 150 1000 / 1000 1000 / 1000 1000 / 1000 MEQ In D5W Inj 850 ML @ 125 mls/hr IV.CONT .Q8H ANIL Rx#: [id number] Pitressin Inj 40 UNIT In NS Inj 100 / 100 100 / 100 98 ML @ 0.04 UNITS/MIN 6 mls/ hr IV.CONT CONT ANIL Rx#: [id number] Alburx 5% Inj 500 ML @ 250 mls/ 500 / 500 1045 / 1045 hr IV.SIG Q8H ANIL Rx#:[id number] Cordarone Inj 150 MG In D5W Inj 100 / 100 97 ML @ 100 mls/hr IV.SIG ONCE ONE Rx#:[id number] Magnesium Sulfate Inj 2 GM In 100 / 100 NS Inj 96 ML @ 50 mls/hr IV.SIG UNSCH PRN Rx#:[id number] Zosyn 3.375 GM Premix 50 ML @ 50 / 50 150 / 150 100 mls/hr IV.SIG Q6H ANIL Rx#: [id number] KCl 20 mEq Premix Inj 20 meq In 200 / 200 100 ml @ 50 mls/hr IV.SIG Q2H PRN Rx#:[id number] Output: Urine 2600 / 2600 Urine Amount (Catheter) 725 / 725 Indwelling Urethral Catheter 725 / 725 Gastric Drainage 550 / 550 Oral Orogastric Tube 550 / 550 Other: Date of Last Bowel Movement 12/19/17 12/17/17 14:50 Blood - Peripheral Aerobic Blood Culture - Preliminary No growth in 2 days 12/17/17 14:50 Blood - Peripheral Anaerobic Blood Culture - Preliminary No growth in 2 days 12/17/17 14:55 Blood - Peripheral Aerobic Blood Culture - Preliminary No growth in 2 days 12/17/17 14:55 Blood - Peripheral Anaerobic Blood Culture - Preliminary No growth in 2 days 12/17/17 15:35 Clean Catch Urine Urine Culture - Final No growth in 48 hours Lab - Hematology Results 12/17/17 12/18/17 12/18/17 14:50 04:15 13:10 WBC 0.5 L 13.3 H D 14.9 H RBC 4.33 3.42 L 3.50 L Hgb 11.7 9.4 L D 9.6 L Hct 36.7 29.1 L 29.5 L MCV 84.7 84.9 84.3 MCH 27.0 27.4 27.3 MCHC 31.9 L 32.3 32.4 RDW 15.6 15.7 15.6 Plt Count 106 L 73 L D 65 L MPV 8.7 8.8 10.1 Prelim Diff (Auto) Slide review pending Slide review pending Neut % (Auto) 82.3 H 94.7 H Lymph % (Auto) 15.6 4.3 L [place] % (Auto) 0.3 0.9 Eos % (Auto) 1.2 0.0 Baso % (Auto) 0.6 0.1 Neut # (Auto) 0.4 L* 12.6 H Lymph # (Auto) 0.1 L 0.6 L [place]ney # (Auto) 0.0 0.1 Eos # (Auto) 0.0 0.0 Baso # (Auto) 0.0 0.0 WBC Differential Manual diff final Manual diff final Seg Neuts % (Manual) 72 H 74 H Band Neuts % (Manual) 8 H 24 H Lymphocytes % (Manual) 20 2 L Monocytes % (Manual) Metamyelocytes % (Man) Myelocytes % (Man) Abs Neuts (Manual) 0.4 L* 13.0 H Differential Comment . . Toxic Vacuolation Dohle Bodies Platelet Estimate Low L Low L Platelet Morphology Normal Normal Ovalocytes 1+ H 1+ H Acanthocytes (Spur) 1+ H 12/19/17 12/19/17 04:45 10:10 WBC 21.4 H 21.6 H RBC 3.27 L 3.15 L Hgb 8.9 L 8.5 L Hct 26.9 L 25.9 L MCV 82.1 82.3 MCH 27.4 26.9 L MCHC 33.3 32.7 RDW 15.2 15.4 Plt Count 45 L D 38 L MPV 10.7 10.7 Prelim Diff (Auto) Slide review pending Slide review pending Neut % (Auto) 96.7 H 95.1 H Lymph % (Auto) 2.1 L 2.5 L [place] % (Auto) 1.0 1.8 Eos % (Auto) 0.1 0.5 Baso % (Auto) 0.1 0.1 Neut # (Auto) 20.7 H 20.6 H Lymph # (Auto) 0.5 L 0.5 L [place]ney # (Auto) 0.2 0.4 Eos # (Auto) 0.0 0.1 Baso # (Auto) 0.0 0.0 WBC Differential Manual diff final Manual diff final Seg Neuts % (Manual) 50 49 Band Neuts % (Manual) 35 H 50 H Lymphocytes % (Manual) 4 L 1 L Monocytes % (Manual) 3 Metamyelocytes % (Man) 7 H Myelocytes % (Man) 1 H Abs Neuts (Manual) 19.9 H 21.4 H Differential Comment . . Toxic Vacuolation Present H Present H Dohle Bodies Present H Present H Platelet Estimate Low L Low L Platelet Morphology Normal Normal Ovalocytes 1+ H Acanthocytes (Spur) Lab - Chemistry Results 12/17/17 12/17/17 12/17/17 14:50 14:50 14:50 Sodium 144 Potassium 4.1 Chloride 112 H Carbon Dioxide 22.5 Anion Gap 10 BUN 16 Creatinine 0.68 Estimated GFR 83 L POC Glucose Random Glucose 80 Lactic Acid 2.7 H Calcium 8.2 L Prot Corrected Calcium Phosphorus Magnesium 1.5 Total Bilirubin 1.9 H AST 30 ALT 23 Alkaline Phosphatase 107 Total Creatine Kinase CK-MB (CK-2) CK-MB (CK-2) % Troponin I Total Protein 5.9 L Albumin 3.3 L TSH Cortisol 12/17/17 12/17/17 12/17/17 19:15 23:20 23:20 Sodium Potassium Chloride Carbon Dioxide Anion Gap BUN Creatinine Estimated GFR POC Glucose Random Glucose 115 H Lactic Acid 3.8 H 1.6 Calcium Prot Corrected Calcium Phosphorus Magnesium Total Bilirubin AST ALT Alkaline Phosphatase Total Creatine Kinase CK-MB (CK-2) CK-MB (CK-2) % Troponin I 0.39 H Total Protein Albumin TSH 2.050 Cortisol 12/18/17 12/18/17 12/18/17 01:47 04:15 04:15 Sodium 143 Potassium 3.6 Chloride 114 H Carbon Dioxide 15.3 L Anion Gap 14 BUN 26 H Creatinine 1.41 H Estimated GFR 36 L POC Glucose 122 H Random Glucose 142 H Lactic Acid 3.7 H Calcium 6.7 L* D Prot Corrected Calcium 8.1 L Phosphorus 2.5 Magnesium 1.3 L Total Bilirubin 1.5 H AST 35 ALT 23 Alkaline Phosphatase 72 Total Creatine Kinase 424 H CK-MB (CK-2) 8.0 H CK-MB (CK-2) % 1.9 Troponin I Total Protein 4.4 L D Albumin 2.2 L D TSH Cortisol 12/18/17 12/18/17 12/18/17 04:15 04:52 12:33 Sodium Potassium Chloride Carbon Dioxide Anion Gap BUN Creatinine Estimated GFR POC Glucose 130 H 95 Random Glucose Lactic Acid Calcium Prot Corrected Calcium Phosphorus Magnesium Total Bilirubin AST ALT Alkaline Phosphatase Total Creatine Kinase CK-MB (CK-2) CK-MB (CK-2) % Troponin I Total Protein Albumin TSH Cortisol 46.3 12/18/17 12/18/17 12/18/17 13:10 13:10 17:49 Sodium 140 Potassium 3.3 L Chloride 109 H Carbon Dioxide 18.9 L Anion Gap 12 BUN 31 H Creatinine 1.23 H Estimated GFR 42 L POC Glucose 102 Random Glucose 113 H Lactic Acid 2.3 H Calcium 6.6 L* Prot Corrected Calcium 8.0 L Phosphorus Magnesium Total Bilirubin 1.5 H AST 49 H ALT 25 Alkaline Phosphatase 72 Total Creatine Kinase CK-MB (CK-2) CK-MB (CK-2) % Troponin I Total Protein 4.4 L Albumin 2.1 L TSH Cortisol 12/18/17 12/18/17 12/19/17 20:21 23:41 04:45 Sodium 137 Potassium 3.2 L Chloride 103 Carbon Dioxide 19.5 L Anion Gap 15 BUN 33 H Creatinine 1.54 H Estimated GFR 32 L POC Glucose 165 H Random Glucose 159 H Lactic Acid 2.3 H Calcium 6.1 L* Prot Corrected Calcium 7.2 L* D Phosphorus Magnesium 1.9 D Total Bilirubin 2.7 H AST 54 H ALT 24 Alkaline Phosphatase 68 Total Creatine Kinase CK-MB (CK-2) CK-MB (CK-2) % Troponin I Total Protein 4.7 L Albumin 2.8 L D TSH Cortisol 12/19/17 12/19/17 12/19/17 05:39 07:10 10:10 Sodium 138 Potassium 3.0 L Chloride 102 Carbon Dioxide 22.3 Anion Gap 14 BUN 31 H Creatinine 1.56 H Estimated GFR 32 L POC Glucose 162 H Random Glucose 133 H Lactic Acid Calcium 5.8 L* Prot Corrected Calcium 6.7 L* Phosphorus Magnesium Total Bilirubin AST ALT Alkaline Phosphatase Total Creatine Kinase CK-MB (CK-2) CK-MB (CK-2) % Troponin I Total Protein 5.0 L Albumin TSH Cortisol Imaging: ITS Impressions Abdomen/Pelvis CT 12/17/17 15:01 CONCLUSION: Good position of double-J stent. There is no evidence of abscess. Chest X-Ray 12/18/17 00:00 CONCLUSION: 1. ETT in good position. NGT beyond the GE junction. Stable right IJ central line. 2. Positive fluid balance with persistent bilateral lower lobe airspace disease. Physical Exam: GENERAL: Patient is a thin, well-developed elderly female, awake and alert, not in respiratory distress. She is orally intubated SKIN: Cool and dry. No generalized rash, no ecchymoses and no evidence of embolic lesions. HEAD: Atraumatic. Normocephalic. No temporal wasting, or tenderness. HEENT: [place] conjunctiva. No petechia or hemorrhage. Pupils equal, round and reactive to light. No scleral icterus. No injection or drainage. NECK: Trachea midline. Supple and not tender, no meningeal signs CARDIOVASCULAR: Regular rate and rhythm. No murmurs, rubs or gallops. RESPIRATORY: Clear to auscultation. Breath sounds equal bilaterally. No rales , wheezing or rhonchi ABDOMEN: Soft, non-tender, nondistended. Bowel sounds present and normoactive. No guarding. No rebound. No organomegaly. EXTREMITIES: No clubbing, cyanosis, or edema. No joint effusion, has good ROM. No calf tenderness. Well perfused and warm. NEUROLOGICAL: Awake and alert. No facial asymmetry. Motor grossly within normal limits. PSYCHIATRIC: Calm and cooperative. Assessment and Plan - Plan Impression Sepsis with shock on presentation after urologic procedure, source (fever, shock, acidosis, renal failure, resp failure) onknown source. UTI, complicated has stones, has stent, S/P retrieval of stone, no hydro on CT A/P, no abscess Initial neutropenia due to severe sepsis, now with leukocytosis Acidosis due to sepsis renal insufficiency due to sepsis and shock Thrombocytopenia due to sepsis, ?DIC Respiratory failure Recommendation Follow C/S Continue IV Zosyn, to have broader GNR coverage Continue Vancomycin while C/S pending Monitor progress Will determine course of Abx once C/S available Spoke to son and daughter. Discussed with GUANAKO.
[2017-12-19] MEDS: Potassium Chlor 40 mEq Premix 40 MEQ/100 ML PIGGYBACK IV.SIG PRN (15:25)
[2017-12-19] MEDS ORDERED: Midazolam Inj 5 MG/ML 1 ML Vial ONE (17:21)
[2017-12-19] MEDS ORDERED: fentaNYL Citrate Inj 100 MCG/2 ML Ampul ONE (17:21)
[2017-12-19] MEDS ORDERED: SODIUM CHLOR 0.9% IV.CONT PRN (17:59)
[2017-12-19] MEDS ORDERED: EPINEPHRINE IV.CONT PRN (17:59)
--- NOTE | 2017-12-19 18:03 | XR ---
EXAM DATE: 12/19/2017 5:44 PM EDT AGE/SEX: 82 years / Female INDICATIONS: Respiratory distress. Code blue. CLINICAL DATA: This is the patient's initial encounter. Patient reports that signs and symptoms have been present for 1 day and indicates a pain score of Nonresponsive. MEDICAL/SURGICAL HISTORY: Non-responsive. Non-responsive. COMPARISON: [facility] – [place], CHEST 1V SINGLE AP, 12/18/2017. . FINDINGS: Portable AP view of the chest demonstrates a normal size cardiac silhouette. The image is not complet riddhi visualized the lung bases. ETT, nasogastric tube, and right IJ line remain present. EKG lines ove rlie the patient. There is a new small right pneumothorax. There is soft tissue air in the left supra clavicular region with lucency potentially present in the mediastinum. Interstitial opacities remain present in the lower lung zones bilaterally. No pleural effusion is appreciated. The bones and soft t issues demonstrate no acute finding. CONCLUSION: 1. New small right pneumothorax. There are no signs of tension. 2. Possible pneumomediastinum. There is new soft tissue air in the left supraclavicular region. 3. Stable changes characteristic of pulmonary edema with bilateral mid and lower lung zone interstit ial opacities. 4. Please note that the entire lung bases were not completely imaged on this examination. Electronically signed by: Andre Jacome MD 12/19/2017 6:02 PM EDT
[2017-12-19 18:15] LABS: ABG Base Excess 10.3 mmol/L (-2-2); ABG PCO2 29 mmHg (38-42); ABG PO2 473 mmHG (61-120)
[2017-12-19 18:18] LABS: Hematocrit 28.4 % (35.0-46.0); Hemoglobin 9.1 gm/dL (11.6-15.3); Mean Corpuscular HGB Conc 31.9 % (32.0-36.0); Mean Corpuscular Hemoglobin 26.8 pg (27.0-34.0); Mean Corpuscular Volume 84.1 fL (80.0-100.0); Mean Platelet Volume 10.4 fL (7.0-11.0); Platelet Count 44 th/mm3 (150-450); Red Blood Count 3.37 mil/mm3 (4.00-5.30); Red Cell Distribution Width 15.4 % (11.6-17.2); White Blood Count 31.5 th/mm3 (4.0-11.0)
[2017-12-19 18:20] LABS: ABG Base Excess -8.1 mmol/L (-2-2); ABG PCO2 43 mmHg (38-42); ABG PO2 337 mmHG (61-120)
[2017-12-19 18:31] LABS: INR 1.9 Ratio; Prothrombin Time 19.1 sec (9.8-11.6)
--- NOTE | 2017-12-19 18:33 | XR ---
EXAM DATE: 12/19/2017 6:15 PM EDT AGE/SEX: 82 years / Female INDICATIONS: Pneumothorax. CLINICAL DATA: This is the patient's subsequent encounter. Patient reports that signs and symptoms h ave been present for 3 days and indicates a pain score of Nonresponsive. MEDICAL/SURGICAL HISTORY: Non-responsive. Non-responsive. COMPARISON: [facility], CHEST 1V SINGLE AP, 12/19/2017. . FINDINGS: Portable AP view of the chest demonstrates a normal-sized cardiac silhouette with calcification of th e aorta. Nasogastric tube, endotracheal tube, and right IJ central line remain present. Right chest t ube has been placed with the tip at the apex of the right hemithorax. The right pneumothorax is no lo nger visualized. There is subcutaneous air along the right chest wall. There is bilateral lower lung zone interstitial and airspace opacity, left greater than right. A left supraclavicular subcutaneous air is present with questionable pneumomediastinum. CONCLUSION: 1. Interval placement of right chest tube with tip at the apex of the right hemithorax. The right pn eumothorax has resolved. 2. Interval worsening of the airspace consolidation in the left lower lung zone. 3. Persistent questionable findings which could indicate a pneumomediastinum. Electronically signed by: Andre Jacome MD 12/19/2017 6:32 PM EDT
[2017-12-19 18:52] LABS: Calcium 5.4 mg/dL (8.5-10.1); Carbon Dioxide 18.3 meq/L (21.0-32.0); Magnesium 1.8 mg/dL (1.5-2.5); Phosphorus 4.9 mg/dL (2.5-4.9); Potassium 3.3 meq/L (3.5-5.1)
[2017-12-19 19:06] LABS: Troponin I 5.59 ng/mL (0.02-0.05)
--- NOTE | 2017-12-19 19:12 | P.PCN ---
Date of procedure: 12/19/17 Pre-op diagnosis: hypotension/ PEA/ suspected right pneumothorax Post-op diagnosis: same Procedure: CPR: Patient developed respiratory distress while on mechanical ventilation and was biting down on ET tube. She started becoming more hypotensive. Patient was sedated with Versed/fentanyl and was given rocuronium as she was biting down on her ET tube, on auscultation patient had absent air entry on the right lung field with good air entry and some rhonchi/wheezing over left lung field. Her systolic blood pressure started dropping to the 40s. CPR/ACLS protocol initiated. Needle decompression performed due to suspicion of tension pneumothorax on the right with gush of air and some improvement in blood pressure. stat chest x-ray revealed right pneumothorax with ET tube in good position. Right-sided chest tube was placed emergently after discussion with family. Please see ACLS code sheet for details.
--- NOTE | 2017-12-19 19:17 | P.PCN ---
Date of procedure: 12/19/17 Pre-op diagnosis: Right pneumothorax Post-op diagnosis: same Procedure: Right sided chest tube placement. Procedure: Right-sided chest tube placement Indication: Right pneumothorax Preoperative diagnosis: Right pneumothorax Postoperative diagnosis: Same This was an emergent procedure however family was informed following cardiac arrest regarding need for emergent chest tube placement due to hemodynamic instability and right pneumothorax. Anesthesia: 1% lidocaine for local infiltration anesthesia Procedure: After sterile prepping and draping using 1% lidocaine for local infiltration anesthesia, horizontal skin incision was made in the region of the 3rd intercostal space in the anterior axillary line with a #11 scalpel blade followed by blunt dissection. Using Mela clamp right pleural cavity was entered with gush of air heard on entry. 20 Swedish chest tube was passed into the left pleural cavity. Almost immediately about 750 cc of straw-colored pleural fluid drained out of the chest tube which was then connected to Pleur- evac which were then connected to -20 cm of water pressure with underwater seal. Chest tube was secured with 3-0 silk sutures following which vaseline gauze was was applied to the insertion site followed by dressing. Postprocedure chest x-ray was ordered and was reviewed personally and showed good placement of right-sided chest tube with tip at apex with resolution of pneumothorax. Patient tolerated the procedure well with no immediate complications noted. Estimated blood loss (mL): 5 Pathology: none sent Condition: critical Disposition: ICU
[2017-12-19 19:19] LABS: CKMB Percent 0.9 % (0.0-4.0); Creatine Kinase MB 4.2 ng/mL (0.5-3.6); Total Protein 4.6 g/dL (6.4-8.2)
[2017-12-19] MEDS: Latanoprost 0.005% Opth Drops 2.5 ML Bottle EACH EYE SCH (19:48)
[2017-12-19] MEDS: Piperacil/Tazo 2.25 GM Premix 50 ML IV.SIG SCH (20:00)
[2017-12-19] MEDS: Pantoprazole Inj 80 MG in Sodium Chlor 0.9% Inj 100 ML IV.CONT SCH (22:20)
[2017-12-20] MEDS: Piperacil/Tazo 2.25 GM Premix 50 ML IV.SIG SCH ×2 (00:05→06:30)
[2017-12-20] MEDS: Insulin NovoLOG Aspart Correctional Sugar Inj SQ SCH ×2 (00:06→06:07)
[2017-12-20] MEDS: Oral Hygiene Kit OROPHARYNG SCH ×2 (00:06→05:20)
[2017-12-20] MEDS: Albumin Human 5% Inj 500 ML IV.SIG SCH (01:24)
[2017-12-20] MEDS: Dorzolamide 2% Opth Drops 10 ML Bottle EACH EYE SCH (01:26)
[2017-12-20 01:45] LABS: Baso % (Auto) 0.1 % (0.0-2.0); Eos # (Auto) 0.9 th/mm3 (0.0-0.4); Eos % (Auto) 3.2 % (0.0-4.0); Hematocrit 32.4 % (35.0-46.0); Hemoglobin 10.8 gm/dL (11.6-15.3); Lymph # (Auto) 0.5 th/mm3 (1.0-4.8); Lymph % (Auto) 1.7 % (9.0-44.0); Mean Corpuscular HGB Conc 33.4 % (32.0-36.0); Mean Corpuscular Hemoglobin 27.6 pg (27.0-34.0); Mean Corpuscular Volume 82.8 fL (80.0-100.0); Mean Platelet Volume 11.4 fL (7.0-11.0); Mono # (Auto) 0.4 th/mm3 (0.0-0.9); Mono % (Auto) 1.4 % (0.0-8.0); Neut # (Auto) 26.2 th/mm3 (1.8-7.7); Neut % (Auto) 93.6 % (16.0-70.0); Platelet Count 32 th/mm3 (150-450); Red Blood Count 3.91 mil/mm3 (4.00-5.30); Red Cell Distribution Width 15.5 % (11.6-17.2)
[2017-12-20] MEDS: Sodium Bicarbonate 8.4% Inj 150 MEQ in Dextrose 5% in Water Inj 850 ML IV.CONT SCH ×4 (01:49→08:31)
[2017-12-20 02:11] LABS: Calcium 5.2 mg/dL (8.5-10.1); Carbon Dioxide 22.4 meq/L (21.0-32.0); Magnesium 1.5 mg/dL (1.5-2.5); Phosphorus 3.5 mg/dL (2.5-4.9); Total Protein 4.5 g/dL (6.4-8.2); Vancomycin,Random 10.9 Comment
[2017-12-20 02:14] LABS: Potassium 2.8 meq/L (3.5-5.1); Troponin I 5.18 ng/mL (0.02-0.05)
[2017-12-20 02:18] LABS: Lymphocytes 2 % (9-44); Monocytes 3 % (0-8)
[2017-12-20 02:19] LABS: Ovalocytes 1+; Platelet Morphology Normal (Normal)
[2017-12-20] MEDS ORDERED: Calcium Chloride Inj 2 GM in Dextrose 5% in Water Inj 100 ML IV.SIG ONE ×2 (02:43)
[2017-12-20] MEDS: Vasopressin Inj 40 UNIT in Sodium Chlor 0.9% Inj 98 ML IV.CONT SCH (03:27)
[2017-12-20] MEDS: Potassium Chlor 40 mEq Premix 40 MEQ/100 ML PIGGYBACK IV.SIG PRN (04:03)
[2017-12-20] MEDS: Magnesium Sulfate Inj 2 GM in Sodium Chlor 0.9% Inj 96 ML IV.SIG PRN (04:31)
--- NOTE | 2017-12-20 04:53 | XR ---
EXAM DATE: 12/20/2017 4:08 AM EDT AGE/SEX: 82 years / Female INDICATIONS: Shortness of breath. CLINICAL DATA: This is the patient's subsequent encounter. Patient reports that signs and symptoms h ave been present for 4 - 6 days and indicates a pain score of Nonresponsive. MEDICAL/SURGICAL HISTORY: Non-responsive. Non-responsive. [place] [facility] [place]19/2017. . FINDINGS: A single AP view of the chest demonstrates increasing opacification left lung. Right-sided chest tube without pneumothorax. Endotracheal tube, nasogastric tube and right jugular central line stable posi tion. Heart enlarged. Minimal density right lower lobe. The cardiomediastinal contours are unremarkab le. Osseous structures are intact. CONCLUSION: Increasing density throughout the left lung with minimal patchy densities in the right lung base. Electronically signed by: Fredy Roach MD 12/20/2017 4:52 AM EDT
[2017-12-20] MEDS: Chlorhexidine Gluconate 2% 1 Pack (2 Cloths) TOPICAL SCH (05:19)
[2017-12-20] MEDS: Artificial Tears Opth Drops 15 ML Bottle EACH EYE SCH (06:07)
[2017-12-20] MEDS ORDERED: Digoxin Inj 500 MCG/2 ML Ampul IV.PUSH STA (07:47)
[2017-12-20] MEDS ORDERED: Amiodarone Inj 150 MG in Dextrose 5% in Water Inj 97 ML IV.SIG ONE ×2 (07:49)
[2017-12-20] MEDS ORDERED: Magnesium Sulfate Inj 2 GM in Sodium Chlor 0.9% Inj 96 ML IV.SIG ONE (07:51)
[2017-12-20] MEDS: Pantoprazole Inj 80 MG in Sodium Chlor 0.9% Inj 100 ML IV.CONT SCH (08:30)
[2017-12-20] MEDS ORDERED: Phenylephrine Inj 160 MG in Dextrose 5% in Water Inj 484 ML IV.CONT PRN ×2 (10:00)
--- NOTE | 2017-12-20 10:07 | MB ---
cc: Corey Whalen MD DATE: 12/20/2017 REASON FOR CONSULTATION: Evaluation of elevated troponin. HISTORY OF PRESENT ILLNESS: Syeda Berger is an 82-year-old female who was previously seen my colleague, Dr. Ordoñez in [place]. The patient had a cardiac arrest yesterday and her troponin is elevated and that is why I was consulted to see her. She had a previous admission in [place] and had paroxysmal atrial fibrillation, which subsequently converted to sinus rhythm. She was on Eliquis 2.5 mg p.o. b.i.d. when she was seen in the office 12/10. She had a nuclear stress test performed in [place] on 11/18/2017 that was normal. The patient came in on 12/17/2017 with a clinical picture of sepsis. She has been on IV antibiotics. She has been on pressure support. She has been in and out of atrial fibrillation since admission. Creatinine has risen. Her liver tests are elevating. She has got blood in her urine. She also has GI bleeding from her stomach, according to the nurse. She is requiring pressors. Her lactic acid is elevated. She is currently on vasopressin at 0.04 and Levophed at 7 mcg. Her sat was beginning to drop while I was in the room. The nurse had to go up on the FiO2 because of a drop in sat. Family is at the bedside and I had a long discussion with them after I did my full assessment. The patient seems to be alert and I cannot really communicate with her. PAST MEDICAL HISTORY: Includes paroxysmal atrial fibrillation, ureteral stones with a stent in place and urinary tract infections. PAST SURGICAL HISTORY: Includes breast biopsies, cataract surgery, hysterectomy, ovaries removed and parotid gland removal. ALLERGIES: INCLUDE SHELLFISH. FAMILY HISTORY: Positive for an aneurysm in her mother. SOCIAL HISTORY: Never smoked, only light alcohol consumption. PHYSICAL EXAMINATION: GENERAL: Reveals an elderly white female. She is intubated. Her Vance bag contains very bloody appearing urine. She is currently in atrial fibrillation with a mild increased rate and is on amiodarone drip. HEENT: Unremarkable. NECK: Shows no obvious JVD. CHEST: Has rhonchi, particularly on the left side. CARDIAC: Shows S1 and S2, irregular rate and rhythm. I do not hear an S3. ABDOMEN: Tympanitic. EXTREMITIES: Show warm hands and feet and knee caps consistent with clinical picture of sepsis on pressors. DIAGNOSTIC STUDIES: Her EKGs have shown some mild diffuse ST-T wave changes. Troponin is significantly elevated 5.59 yesterday at noon, 5.18 today. Albumin is depressed. Her liver tests are elevated. Her creatinine was 2.04, 1.74 today. Potassium was 2.8, in the process of being repleted. IMPRESSION: 1. Suspect overwhelming sepsis, was requiring pressor support and in septic shock. 2. Status post an arrest yesterday, did not appear to be an arrhythmic arrest, more likely respiratory related. 3. Elevated troponin consistent with a non-ST elevation myocardial infarction. It is probably a type 2 infarct from the sepsis. 4. Hypokalemia, in the process being replaced. 5. Intermittent atrial fibrillation. Potassium replacement should help. I am going to additionally give her a gram of magnesium. 6. Multiorgan involvement with advanced age and she was in a debilitated condition, even before admission. RECOMMENDATIONS: I am going to add a gram of magnesium replacement. Potassium replacement is ongoing. Prognosis is very poor. I had an honest discussion with the children. After a long discussion with the family, it looks like they are heading towards a hospice type decision. I have called and spoke to Dr. Loyola. The patient is currently receiving full supportive care, but despite that her chances of survival are poor. MD FAROOQ Trevino/SLOAN , 09:45 AM , 10:05 AM
[2017-12-20] MEDS: Chlorhexidine 0.12% Oral Kit 15 ML UDC OROPHARYNG SCH (10:08)
[2017-12-20] MEDS: Senna/Docusate Sodium 8.6/50 MG Tablet PO SCH (10:09)
[2017-12-20] MEDS ORDERED: Vancomycin Inj 750 MG in Sodium Chlor 0.9% Inj 250 ML IV.SIG ONE (11:00)
[2017-12-20] MEDS ORDERED: HYDROmorphone PF Inj 1 MG/ML Ampul IV.PUSH PRN (11:20)
[2017-12-20] MEDS ORDERED: Morphine Inj 4 MG/ML Vial IV.PUSH PRN (11:20)
[2017-12-20] MEDS ORDERED: Hyoscyamine Inj 0.5 MG/ML Ampul IV.PUSH ONE (11:20)
[2017-12-20] MEDS ORDERED: Hyoscyamine Inj 0.5 MG/ML Ampul IV.PUSH PRN (11:20)
[2017-12-20] MEDS ORDERED: Morphine Inj 4 MG/ML Vial IV.PUSH ONE (11:20)
[2017-12-20] MEDS ORDERED: Morphine Sulfate Inj 8 MG/ML Vial IV.PUSH ONE (11:20)
--- NOTE | 2017-12-20 11:55 | P.PNCC ---
Subjective Subjective Remarks/Hospital Course: 12/17: This is an 82-year-old female. She is full code. Date of admission 12/17/2017. Past medical history includes glaucoma, atrial fibrillation currently normal sinus rhythm on apixaban, recurrent nephrolithiasis. She was recently hospitalized and dilated for hospital for a kidney stone. She had a left-sided stent placed at that time. She was placed on apixaban due to high chads vasc2 score. She has been off this 5 mg twice daily for the procedure today. Today, patient underwent a cystoscopy, left stent removal, left ureteroscopic he with 6 basket retrieval/lithotripsy/left retrograde with left double-J stent placement by . Postprocedure, patient became hypotensive is transferred emergency to [facility]. CT abdomen/pelvis revealed no abnormality findings. Patient is double-J stent placed the left. Patient is received ceftriaxone is currently on cefepime. Patient received a total of 3 L normal saline. Despite this patient came hypotensive requiring norepinephrine drip. We are asked to admit patient. Stent placed in place patient is currently awake and alert denies pain. 12/18: Patient was intubated early this morning for worsening respiratory status and metabolic acidosis and placed on mechanical ventilation. On Levophed at 30 mics per minute as well as low-dose vasopressin with systolic blood pressure in the 80s. Awake and alert, orally intubated on mechanical ventilation. Awake, following commands. Denies any pain by nodding her head. I ordered a Vance catheter to be placed to monitor urine output as well as in view of hematuria. 12/19: Went into A. fib with RVR last night and was started on amiodarone infusion. Remains orally intubated on mechanical ventilation. Awake and alert. Following commands. On Levophed 12 mcg/min and vasopressin. Hematuria clearing. Has a good urine output. 12/20: Patient developed a cardiac arrest yesterday, had a right tension pneumothorax status post chest tube placement. Received 2 units PRBCs overnight. She went into A. fib early this morning. Amiodarone bolus ordered and amiodarone drip resumed. Remains on Levophed 7 mics per minute as well as low-dose vasopressin. Troponin 5 noted [address]iscuss[address] with Dr. Corey Whalen from cardiology who evaluated the patient for elevated troponin and recurrent A. fib. When I evaluated the patient she was orally intubated on mechanical ventilation. Awake and alert, following commands though appeared disoriented. Objective Vital Signs / I&O: Vital Signs 12/19/17 12:00 12/19/17 13:45 12/19/17 14:00 Temperature 97.5 F L Pulse Rate 111 H 109 H Respiratory Rate 23 Blood Pressure 82/54 L 83/52 L Pulse Oximetry 93 L 12/19/17 14:15 12/19/17 14:30 12/19/17 14:45 Temperature Pulse Rate 111 H 111 H 111 H Respiratory Rate 18 20 22 Blood Pressure 91/54 L 95/47 L 92/55 L Pulse Oximetry 94 L 100 12/19/17 15:00 12/19/17 15:15 12/19/17 15:30 Temperature Pulse Rate 112 H 112 H 112 H Respiratory Rate 23 18 19 Blood Pressure 94/51 L 112/55 L 92/62 L Pulse Oximetry 100 96 100 12/19/17 15:46 12/19/17 16:00 12/19/17 16:15 Temperature 98.2 F Pulse Rate 115 H 108 H 112 H Respiratory Rate 21 21 18 Blood Pressure 90/43 L 86/50 L 80/61 L Pulse Oximetry 100 100 100 12/19/17 16:30 12/19/17 16:45 12/19/17 16:50 Temperature Pulse Rate 113 H 109 H 106 H Respiratory Rate 18 18 19 Blood Pressure 93/56 L 89/46 L Pulse Oximetry 100 96 12/19/17 17:00 12/19/17 17:05 12/19/17 17:15 Temperature Pulse Rate 108 H 110 H 119 H Respiratory Rate 26 H 21 33 H Blood Pressure 78/52 L 82/51 L 126/80 Pulse Oximetry 100 100 79 L 12/19/17 17:30 12/19/17 17:45 12/19/17 18:00 Temperature Pulse Rate 68 121 H 129 H Respiratory Rate 28 H 13 12 Blood Pressure 142/83 H 144/65 H Pulse Oximetry 12/19/17 18:01 12/19/17 18:07 12/19/17 18:15 Temperature Pulse Rate 132 H 97 H Respiratory Rate 11 L 9 L Blood Pressure 78/41 L 108/53 L Pulse Oximetry 60 L 100 12/19/17 18:34 12/19/17 18:45 12/19/17 19:00 Temperature Pulse Rate 91 H 91 H Respiratory Rate 20 20 Blood Pressure 149/57 H 106/53 L 103/55 L Pulse Oximetry 87 L 89 L 12/19/17 19:15 12/19/17 19:30 12/19/17 19:45 Temperature Pulse Rate 91 H 91 H 91 H Respiratory Rate 20 20 20 Blood Pressure 112/56 L 112/58 L 107/57 L Pulse Oximetry 92 L 90 L 93 L 12/19/17 20:00 12/19/17 20:09 12/19/17 20:15 Temperature 98.5 F 98.5 F Pulse Rate 91 H 90 Respiratory Rate 21 20 20 Blood Pressure 111/57 L 105/54 L Pulse Oximetry 95 94 L 94 L 12/19/17 20:30 12/19/17 20:32 12/19/17 20:45 Temperature 99.5 F Pulse Rate 92 H 91 H 92 H Respiratory Rate 21 21 22 Blood Pressure 104/55 L 108/57 L 101/53 L Pulse Oximetry 94 L 94 L 94 L 12/19/17 21:00 12/19/17 21:15 12/19/17 21:30 Temperature Pulse Rate 92 H 89 91 H Respiratory Rate 23 21 23 Blood Pressure 108/57 L 99/58 L 102/52 L Pulse Oximetry 94 L 94 L 94 L 12/19/17 21:45 12/19/17 22:00 12/19/17 22:15 Temperature 98.4 F Pulse Rate 87 86 85 Respiratory Rate 21 23 23 Blood Pressure 104/58 L 104/52 L 108/58 L Pulse Oximetry 95 94 L 95 12/19/17 22:30 12/19/17 22:31 12/19/17 22:45 Temperature 99 F Pulse Rate 85 85 83 Respiratory Rate 23 22 22 Blood Pressure 102/54 L 107/58 L 104/56 L Pulse Oximetry 94 L 96 94 L 12/19/17 23:00 12/19/17 23:15 12/19/17 23:30 Temperature Pulse Rate 83 90 91 H Respiratory Rate 24 24 24 Blood Pressure 100/58 L 99/55 L 103/54 L Pulse Oximetry 96 97 93 L 12/19/17 23:45 12/20/17 00:00 12/20/17 00:05 Temperature 98.8 F Pulse Rate 90 87 Respiratory Rate 24 17 23 Blood Pressure 99/58 L 103/55 L Pulse Oximetry 92 L 93 L 94 L 12/20/17 00:15 12/20/17 00:19 12/20/17 00:30 Temperature 98.8 F Pulse Rate 86 84 84 Respiratory Rate 23 23 24 Blood Pressure 102/53 L 108/59 L 102/58 L Pulse Oximetry 93 L 94 L 84 L 12/20/17 00:45 12/20/17 01:00 12/20/17 01:15 Temperature Pulse Rate 85 81 82 Respiratory Rate 29 H 21 22 Blood Pressure 100/55 L 101/51 L 94/53 L Pulse Oximetry 75 L 85 L 95 12/20/17 01:30 12/20/17 01:45 12/20/17 02:00 Temperature Pulse Rate 80 87 79 Respiratory Rate 21 25 H Blood Pressure 102/54 L 92/51 L 92/51 L Pulse Oximetry 92 L 92 L 90 L 12/20/17 02:15 12/20/17 02:30 12/20/17 02:45 Temperature Pulse Rate 79 80 79 Respiratory Rate Blood Pressure 86/54 L 86/54 L 89/54 L Pulse Oximetry 94 L 93 L 93 L 12/20/17 03:00 12/20/17 03:15 12/20/17 03:30 Temperature Pulse Rate 79 78 77 Respiratory Rate Blood Pressure 91/55 L 85/54 L 91/52 L Pulse Oximetry 94 L 93 L 91 L 12/20/17 03:45 12/20/17 03:52 12/20/17 04:00 Temperature 99.0 F Pulse Rate 78 75 78 Respiratory Rate 20 Blood Pressure 100/54 L 109/58 L Pulse Oximetry 88 L 89 L 90 L 12/20/17 04:15 12/20/17 04:30 12/20/17 04:45 Temperature Pulse Rate 78 79 78 Respiratory Rate Blood Pressure 101/55 L 98/53 L 93/54 L Pulse Oximetry 94 L 96 12/20/17 05:00 12/20/17 07:00 12/20/17 08:00 Temperature Pulse Rate 79 101 H Respiratory Rate 23 21 Blood Pressure 91/50 L Pulse Oximetry 93 L 98 Intake & Output 12/19/17 12/20/17 12/20/17 18:59 06:59 18:59 Intake Total 2750 / 2750 3085 / 3085 1350 / 1350 Output Total 1890 / 1890 518 / 518 Balance 860 / 860 2567 / 2567 1350 / 1350 Weight 47.2 kg Intake: IV 2750 / 2750 3085 / 3085 1350 / 1350 Cordarone Inj 450 MG In D5W Inj 250 / 250 250 / 250 241 ML @ 1 MG/MIN 33.33 mls/hr IV.CONT .[id number] ANIL Rx#: [id number] Levophed Inj 16 MG In D5W Inj 250 / 250 234 ML @ 2 MCG/MIN 1.87 mls/hr IV.CONT TITRATE PRN Rx#: [id number] Protonix Inj 80 MG In NS Inj 100 / 100 100 / 100 100 ML @ 10 mls/hr IV.CONT Q10H ANIL Rx#:[id number] Sodium Bicarbonate 8.4% Inj 150 2000 / 2000 1000 / 1000 1000 / 1000 MEQ In D5W Inj 850 ML @ 75 mls /hr IV.CONT .[id number] ANIL Rx#: [id number] Pitressin Inj 40 UNIT In NS Inj 100 / 100 98 ML @ 0.04 UNITS/MIN 6 mls/ hr IV.CONT CONT ANIL Rx#: [id number] Alburx 5% Inj 500 ML @ 250 mls/ 500 / 500 1000 / 1000 hr IV.SIG Q8H ANIL Rx#:[id number] Magnesium Sulfate Inj 2 GM In 100 / 100 NS Inj 96 ML @ 50 mls/hr IV.SIG UNSCH PRN Rx#:[id number] Protonix Inj 80 MG In NS Inj 35 35 / 35 ML @ 420 mls/hr IV.SIG BOLUS ONE Rx#:[id number] Zosyn 2.25 GM Premix 50 ML @ 100 / 100 100 mls/hr IV.SIG Q6H ANIL Rx#: [id number] Zosyn 3.375 GM Premix 50 ML @ 50 / 50 100 mls/hr IV.SIG Q6H ANIL Rx#: [id number] KCl 40 mEq Premix Inj 40 meq In 100 / 100 100 ml @ 25 mls/hr IV.SIG Q2H PRN Rx#:[id number] Vancomycin Inj 1,000 MG In NS 250 / 250 Inj 250 ML @ 250 mls/hr IV.SIG ONCE ONE Rx#:[id number] Intake (Blood Product) Amt 0 / 0 Rbc As-3 Leukoreduced Unit 0 / 0 [id number] Rbc As-3 Leukoreduced Unit 0 / 0 [id number] Output: Urine Amount (Catheter) 800 / 800 500 / 500 Indwelling Urethral Catheter 800 / 800 500 / 500 Gastric Drainage 500 / 500 0 / 0 Oral Orogastric Tube 500 / 500 0 / 0 Chest Tube Drainage 590 / 590 Right Upper 590 / 590 Other: Date of Last Bowel Movement 12/19/17 12/19/17 12/19/17 # Bowel Movements 1 Result Diagrams: 12/20/17 01:15 12/20/17 01:15 Imaging: ITS Impressions Chest X-Ray 12/17/17 00:00 CONCLUSION: New right IJ central venous catheter with tip at the atriocaval junction. No perceptible pneumothorax. Chest X-Ray 12/17/17 14:48 CONCLUSION: COPD. Minimal atelectasis left lung base. No evidence of consolidating airspace disease. Abdomen/Pelvis CT 12/17/17 15:01 CONCLUSION: Good position of double-J stent. There is no evidence of abscess. Chest X-Ray 12/18/17 00:00 CONCLUSION: 1. ETT in good position. NGT beyond the GE junction. Stable right IJ central line. 2. Positive fluid balance with persistent bilateral lower lobe airspace disease. Chest X-Ray 12/19/17 00:00 CONCLUSION: 1. New small right pneumothorax. There are no signs of tension. 2. Possible pneumomediastinum. There is new soft tissue air in the left supraclavicular region. 3. Stable changes characteristic of pulmonary edema with bilateral mid and lower lung zone interstitial opacities. 4. Please note that the entire lung bases were not completely imaged on this examination. Chest X-Ray 12/19/17 00:00 CONCLUSION: 1. Interval placement of right chest tube with tip at the apex of the right hemithorax. The right pneumothorax has resolved. 2. Interval worsening of the airspace consolidation in the left lower lung zone. 3. Persistent questionable findings which could indicate a pneumomediastinum. Chest X-Ray 12/20/17 05:00 CONCLUSION: Increasing density throughout the left lung with minimal patchy densities in the right lung base. Objective Remarks: Drips: Levophed 7/vasopressin 0.04/amiodarone 0.5/bicarb/fentanyl On PRBC mode mechanical ventilation 100% FiO2 PEEP +5 at the time of my evaluation. HEENT/ Neuro: Awake and alert, following commands, orally intubated, Pallor present, no icterus, tongue/ mucosa moist Neck: No JVD Chest/Pulm: on mech vent, good air entry bilaterally, scattered rhonchi bilaterally more with the left lung field. No air leak on the right chest tube noted. CVS: S1-S2 irregularly irregular, no murmur GI/abdomen: soft, nontender, bowel sounds sluggish Extremities: warm bilaterally, trace edema Assessment and Plan - Assessment and Plan Plan: Neuro/Psych: Glaucoma Medicine reconciliation currently in process for her glaucoma medications which she is on 4 according to son at bedside. Acetaminophen 650 mg by mouth every 6 hours as needed fever Hydrocodone/acetaminophen 5/325 1 tablet every 4 hours as needed pain 1 through 5 Morphine sulfate 2 mg IV every 2 hours as needed pain 6 or 10 CV: Septic shock Lactic acidosis History of atrial fibrillation A. fib with RVR Cardiac arrest status post CPR Elevated troponin with NSTEMI Received 4 L normal saline in ED. Serial lactates until cleared. Switched to bicarb drip in view of metabolic acidosis. 5% albumin every 8 hourly. Continue stress dose steroids in view of refractory shock requiring high-dose pressors. Currently on norepinephrine at 6 mcg/min/vasopressin 0.04 U/min to maintain mean arterial pressure greater or equal to [address]-T changes in the anterior leads. Normal sinus rhythm. Normal PA, QRS and QT intervals. On amiodarone infusion with adequate rate control. Given digoxin 0.5 mg IV earier Resp: Acute respiratory failure on mechanical ventilation On mechanical ventilation, vent bundle, bronchodilators GI: UGI bleed Elevated total bilirubin Hypoalbuminemia OG tube. Holding tube feeds in view of bloody NG output. GI consult requested.. Pantoprazole for GI prophylaxis. Docusate sodium/senna 1 tablet twice daily for bowel regimen CT abdomen/pelvis revealed no acute intra-abdominal findings. Double-J stent remains in place : Status post left renal stent retrieval with placement of double-J stent/ lithotripsy History of recurrent nephrolithiasis with lithotripsy Dr. Clayton did the procedure above. Vance catheterization for accurate intake output. Urology consult requested for further evaluation in view of hematuria and recent urologic procedure causing septic shock-discussed with Dr. Pinto on . Urology evaluation noted CT abdomen pelvis on admission did not show any evidence of obstruction abscess formation and showed double-J stent in appropriate position. Endo: Sliding scale insulin if necessary to maintain euglycemia On stress dose steroids Renal: Strict intake output, monitor and replete electrolytes, follow BUN creatinine. Heme: Leukopenia with neutropenia - improved Thrombocytopenia Monitor CBC daily. Follow trends. Neutropenic precautions Type and screen. Transfuse to keep hemoglobin above 8 g percent ID: Septic shock likely secondary to urinary tract infection Currently on vancomycin and cefepime ID consulted and following. Blood cultures 2, UA 12/17 pending FEN: Hypomagnesia Replace electrolytes as clinically indicated per ICU electrolyte protocol MSK: PT evaluate and treat Access -Right IJ CVL placed in 12/17 - A line Prophylaxis -GI -pantoprazole -DVT -SCD Extensive discussion held with patient's son and daughter following evaluation of patient and discussion with Dr. Whalen. They understand that she is critically ill and possibly terminal multiorgan failure from septic shock and ongoing GI bleed, worsening thrombocytopenia, worsening respiratory failure with low likelihood of survival. Patient has expressed her wishes to them previously and this morning that she would not want aggressive care in this situation and they wish to transition to comfort measures only and wish to stop all aggressive measures including mechanical ventilation pressors antibiotics. I have discussed this with Dr. Corey Whalen who was in agreement and he feels that patient is terminal. Family wishes to transition to hospice. Case management give patient a list to choose hospice facility of their choice and hospice consult requested. Exhibits B & C completed. Copies of patient's advanced directive and healthcare proxy placed on chart. Family wishes to proceed with normal wean and comfort measures now. Placed orders for vent withdrawal and to stop all other medications including all drips/ pressors. Patient will be initiated on Ativan/morphine/Dilaudid as needed and will proceed with terminal wean and extubate patient when family ready. 60 minutes critical care time excluding procedures
--- NOTE | 2017-12-20 12:13 | ECHRPT ---
Indication: ATRIAL FIB CONCLUSIONS The left ventricular systolic function is low normal or mildly reduced with an estimated ejection fr action in the range of 45-50%. Normal left ventricular size. Wall thickness is normal. No regional wall motion abnormalities are present. The right atrial size is mildly enlarged There is moderate to severe tricuspid valve regurgitation. The estimated pulmonary arterial pressure is 33.4 mmHg. BP: / HR: Rhythm: MEASUREMENTS (Male / Female) Normal Values Technical Quality: 2D ECHO LV Diastolic Diameter PLAX 3.3 cm 4.2 - 5.9 / 3.9 - 5.3 cm LV Systolic Diameter PLAX 2.8 cm IVS Diastolic Thickness 1.0 cm 0.6 - 1.0 / 0.6 - 0.9 cm LVPW Diastolic Thickness 1.1 cm 0.6 - 1.0 / 0.6 - 0.9 cm LV Relative Wall Thickness 0.6 LV Ejection Fraction MOD 4C 43.9 % LV Ejection Fraction 4C AL 44.1 % M-MODE LV Diastolic Diameter MM 5.0 cm 4.2 - 5.9 / 3.9 - 5.3 cm LV Systolic Diameter MM 4.3 cm LV Ejection Fraction MM Teich 30.4 % IVS Diastolic Thickness MM 1.0 cm 0.6 - 1.0 / 0.6 - 0.9 cm LVPW Diastolic Thickness MM 1.0 cm 0.6 - 1.0 / 0.6 - 0.9 cm LV Relative Wall Thickness MM 0.4 0.24 - 0.42 / 0.22 - 0.42 DOPPLER TR Peak Velocity 242.0 cm/s TR Peak Gradient 23.4 mmHg Right Atrial Pressure 10.0 mmHg Pulmonary Artery Systolic Pressu 33.4 mmHg Right Ventricular Systolic Press 33.4 mmHg FINDINGS LEFT VENTRICLE The left ventricular systolic function is low normal or mildly reduced with an estimated ejection fr action in the range of 45-50%. Normal left ventricular size. Wall thickness is normal. No regional wall motion abnormalities are present. RIGHT VENTRICLE Normal right ventricular size and systolic function. LEFT ATRIUM The left atrial size is normal. RIGHT ATRIUM The right atrial size is mildly enlarged ATRIAL SEPTUM Normal atrial septal thickness without atrial level shunting by limited color doppler interrogation. AORTA The aortic root and proximal ascending aorta are normal in size on limited imaging. MITRAL VALVE Structurally normal mitral valve. No mitral valve stenosis or regurgitation. AORTIC VALVE Trileaflet aortic valve. No aortic valve stenosis or regurgitation. TRICUSPID VALVE Structurally normal tricuspid valve. There is moderate to severe tricuspid valve regurgitation. The estimated pulmonary arterial pressure is 33.4 mmHg. PULMONARY VALVE No pulmonary valve regurgitation or stenosis. VESSELS The inferior vena cava is normal in size. PERICARDIUM No pericardial effusion. Corey Whalen MD (Electronically Signed) Final Date:20 December 2017 12:12
--- NOTE | 2017-12-20 13:09 | P.PNGI ---
Subjective Interval history: Patient is currently being managed in the intensive care setting she is awake nods her head to simple questions Weak, pale Family present, patient and family have decided on hospice <Selene Staples M - Last Filed: 12/20/17 13:05> Physical Exam Vital signs: Vital Signs 12/19/17 13:45 12/19/17 14:00 12/19/17 14:15 Temperature Pulse Rate 109 H 111 H Respiratory Rate 23 18 Blood Pressure 82/54 L 83/52 L 91/54 L Pulse Oximetry 93 L 94 L 12/19/17 14:30 12/19/17 14:45 12/19/17 15:00 Temperature Pulse Rate 111 H 111 H 112 H Respiratory Rate 20 22 23 Blood Pressure 95/47 L 92/55 L 94/51 L Pulse Oximetry 100 100 12/19/17 15:15 12/19/17 15:30 12/19/17 15:46 Temperature Pulse Rate 112 H 112 H 115 H Respiratory Rate 18 19 21 Blood Pressure 112/55 L 92/62 L 90/43 L Pulse Oximetry 96 100 100 12/19/17 16:00 12/19/17 16:15 12/19/17 16:30 Temperature 98.2 F Pulse Rate 108 H 112 H 113 H Respiratory Rate 21 18 18 Blood Pressure 86/50 L 80/61 L 93/56 L Pulse Oximetry 100 100 12/19/17 16:45 12/19/17 16:50 12/19/17 17:00 Temperature Pulse Rate 109 H 106 H 108 H Respiratory Rate 18 19 26 H Blood Pressure 89/46 L 78/52 L Pulse Oximetry 100 96 100 12/19/17 17:05 12/19/17 17:15 12/19/17 17:30 Temperature Pulse Rate 110 H 119 H 68 Respiratory Rate 21 33 H 28 H Blood Pressure 82/51 L 126/80 142/83 H Pulse Oximetry 100 79 L 12/19/17 17:45 12/19/17 18:00 12/19/17 18:01 Temperature Pulse Rate 121 H 129 H 132 H Respiratory Rate 13 12 11 L Blood Pressure 144/65 H 78/41 L Pulse Oximetry 12/19/17 18:07 12/19/17 18:15 12/19/17 18:34 Temperature Pulse Rate 97 H Respiratory Rate 9 L Blood Pressure 108/53 L 149/57 H Pulse Oximetry 60 L 100 87 L 12/19/17 18:45 12/19/17 19:00 12/19/17 19:15 Temperature Pulse Rate 91 H 91 H 91 H Respiratory Rate 20 20 20 Blood Pressure 106/53 L 103/55 L 112/56 L Pulse Oximetry 89 L 92 L 12/19/17 19:30 12/19/17 19:45 12/19/17 20:00 Temperature 98.5 F Pulse Rate 91 H 91 H 91 H Respiratory Rate 20 20 21 Blood Pressure 112/58 L 107/57 L 111/57 L Pulse Oximetry 90 L 93 L 95 12/19/17 20:09 12/19/17 20:15 12/19/17 20:30 Temperature 98.5 F Pulse Rate 90 92 H Respiratory Rate 20 20 21 Blood Pressure 105/54 L 104/55 L Pulse Oximetry 94 L 94 L 94 L 12/19/17 20:32 12/19/17 20:45 12/19/17 21:00 Temperature 99.5 F Pulse Rate 91 H 92 H 92 H Respiratory Rate 21 22 23 Blood Pressure 108/57 L 101/53 L 108/57 L Pulse Oximetry 94 L 94 L 94 L 12/19/17 21:15 12/19/17 21:30 12/19/17 21:45 Temperature Pulse Rate 89 91 H 87 Respiratory Rate 21 23 21 Blood Pressure 99/58 L 102/52 L 104/58 L Pulse Oximetry 94 L 94 L 95 12/19/17 22:00 12/19/17 22:15 12/19/17 22:30 Temperature 98.4 F Pulse Rate 86 85 85 Respiratory Rate 23 23 23 Blood Pressure 104/52 L 108/58 L 102/54 L Pulse Oximetry 94 L 95 94 L 12/19/17 22:31 12/19/17 22:45 12/19/17 23:00 Temperature 99 F Pulse Rate 85 83 83 Respiratory Rate 22 22 24 Blood Pressure 107/58 L 104/56 L 100/58 L Pulse Oximetry 96 94 L 96 12/19/17 23:15 12/19/17 23:30 12/19/17 23:45 Temperature Pulse Rate 90 91 H 90 Respiratory Rate 24 24 24 Blood Pressure 99/55 L 103/54 L 99/58 L Pulse Oximetry 97 93 L 92 L 12/20/17 00:00 12/20/17 00:05 12/20/17 00:15 Temperature 98.8 F Pulse Rate 87 86 Respiratory Rate 17 23 23 Blood Pressure 103/55 L 102/53 L Pulse Oximetry 93 L 94 L 93 L 12/20/17 00:19 12/20/17 00:30 12/20/17 00:45 Temperature 98.8 F Pulse Rate 84 84 85 Respiratory Rate 23 24 29 H Blood Pressure 108/59 L 102/58 L 100/55 L Pulse Oximetry 94 L 84 L 75 L 12/20/17 01:00 12/20/17 01:15 12/20/17 01:30 Temperature Pulse Rate 81 82 80 Respiratory Rate 21 22 21 Blood Pressure 101/51 L 94/53 L 102/54 L Pulse Oximetry 85 L 95 92 L 12/20/17 01:45 12/20/17 02:00 12/20/17 02:15 Temperature Pulse Rate 87 79 79 Respiratory Rate 25 H Blood Pressure 92/51 L 92/51 L 86/54 L Pulse Oximetry 92 L 90 L 94 L 12/20/17 02:30 12/20/17 02:45 12/20/17 03:00 Temperature Pulse Rate 80 79 79 Respiratory Rate Blood Pressure 86/54 L 89/54 L 91/55 L Pulse Oximetry 93 L 93 L 94 L 12/20/17 03:15 12/20/17 03:30 12/20/17 03:45 Temperature Pulse Rate 78 77 78 Respiratory Rate Blood Pressure 85/54 L 91/52 L 100/54 L Pulse Oximetry 93 L 91 L 88 L 12/20/17 03:52 12/20/17 04:00 12/20/17 04:15 Temperature 99.0 F Pulse Rate 75 78 78 Respiratory Rate 20 Blood Pressure 109/58 L 101/55 L Pulse Oximetry 89 L 90 L 12/20/17 04:30 12/20/17 04:45 12/20/17 05:00 Temperature Pulse Rate 79 78 79 Respiratory Rate Blood Pressure 98/53 L 93/54 L 91/50 L Pulse Oximetry 94 L 96 93 L 12/20/17 07:00 12/20/17 08:00 Temperature Pulse Rate 101 H Respiratory Rate 23 21 Blood Pressure Pulse Oximetry 98 Intake & Output 12/19/17 12/20/17 12/20/17 18:59 06:59 18:59 Intake Total 2750 / 2750 3085 / 3085 1350 / 1350 Output Total 1890 / 1890 518 / 518 Balance 860 / 860 2567 / 2567 1350 / 1350 Weight 47.2 kg Intake: IV 2750 / 2750 3085 / 3085 1350 / 1350 Cordarone Inj 450 MG In D5W Inj 250 / 250 250 / 250 241 ML @ 1 MG/MIN 33.33 mls/hr IV.CONT .[id number] ANIL Rx#: [id number] Levophed Inj 16 MG In D5W Inj 250 / 250 234 ML @ 2 MCG/MIN 1.87 mls/hr IV.CONT TITRATE PRN Rx#: [id number] Protonix Inj 80 MG In NS Inj 100 / 100 100 / 100 100 ML @ 10 mls/hr IV.CONT Q10H ANIL Rx#:[id number] Sodium Bicarbonate 8.4% Inj 150 2000 / 2000 1000 / 1000 1000 / 1000 MEQ In D5W Inj 850 ML @ 75 mls /hr IV.CONT .[id number] ANIL Rx#: [id number] Pitressin Inj 40 UNIT In NS Inj 100 / 100 98 ML @ 0.04 UNITS/MIN 6 mls/ hr IV.CONT CONT ANIL Rx#: [id number] Alburx 5% Inj 500 ML @ 250 mls/ 500 / 500 1000 / 1000 hr IV.SIG Q8H ANIL Rx#:[id number] Magnesium Sulfate Inj 2 GM In 100 / 100 NS Inj 96 ML @ 50 mls/hr IV.SIG UNSCH PRN Rx#:[id number] Protonix Inj 80 MG In NS Inj 35 35 / 35 ML @ 420 mls/hr IV.SIG BOLUS ONE Rx#:[id number] Zosyn 2.25 GM Premix 50 ML @ 100 / 100 100 mls/hr IV.SIG Q6H ANIL Rx#: [id number] Zosyn 3.375 GM Premix 50 ML @ 50 / 50 100 mls/hr IV.SIG Q6H ANIL Rx#: [id number] KCl 40 mEq Premix Inj 40 meq In 100 / 100 100 ml @ 25 mls/hr IV.SIG Q2H PRN Rx#:[id number] Vancomycin Inj 1,000 MG In NS 250 / 250 Inj 250 ML @ 250 mls/hr IV.SIG ONCE ONE Rx#:[id number] Intake (Blood Product) Amt 0 / 0 Rbc As-3 Leukoreduced Unit 0 / 0 [id number] Rbc As-3 Leukoreduced Unit 0 / 0 [id number] Output: Urine Amount (Catheter) 800 / 800 500 / 500 Indwelling Urethral Catheter 800 / 800 500 / 500 Gastric Drainage 500 / 500 0 / 0 Oral Orogastric Tube 500 / 500 0 / 0 Chest Tube Drainage 590 / 590 18 / 18 Right Upper 590 / 590 Other: Date of Last Bowel Movement 12/19/17 12/19/17 12/19/17 # Bowel Movements 1 - Constitutional mild distress - Routine HEENT Exam Head: Present: normocephalic ENT: Present: mucous membranes moist - Routine Neck Exam Present: supple (ETT) - Routine Respiratory Exam Present: decreased breath sounds - Routine Cardiovascular Exam Present: S1, S2 - Routine Abdominal Exam Present: soft (Round, taut, soft bowel sounds) - Routine Neurological Exam Present: alert (Awake understands simple conversation) - Urinary Catheter Management Indwelling Urethral Catheter Cath placed during this visit: yes Reason for continuing: Acute urinary retention Insertion date: 12/18/17 Insertion time: 10:00 <Selene Staples - Last Filed: 12/20/17 13:05> Vital signs: Vital Signs 12/19/17 13:45 12/19/17 14:00 12/19/17 14:15 Temperature Pulse Rate 109 H 111 H Respiratory Rate 23 18 Blood Pressure 82/54 L 83/52 L 91/54 L Pulse Oximetry 93 L 94 L 12/19/17 14:30 12/19/17 14:45 12/19/17 15:00 Temperature Pulse Rate 111 H 111 H 112 H Respiratory Rate 20 22 23 Blood Pressure 95/47 L 92/55 L 94/51 L Pulse Oximetry 100 100 12/19/17 15:15 12/19/17 15:30 12/19/17 15:46 Temperature Pulse Rate 112 H 112 H 115 H Respiratory Rate 18 19 21 Blood Pressure 112/55 L 92/62 L 90/43 L Pulse Oximetry 96 100 100 12/19/17 16:00 12/19/17 16:15 12/19/17 16:30 Temperature 98.2 F Pulse Rate 108 H 112 H 113 H Respiratory Rate 21 18 18 Blood Pressure 86/50 L 80/61 L 93/56 L Pulse Oximetry 100 100 12/19/17 16:45 12/19/17 16:50 12/19/17 17:00 Temperature Pulse Rate 109 H 106 H 108 H Respiratory Rate 18 19 26 H Blood Pressure 89/46 L 78/52 L Pulse Oximetry 100 96 100 12/19/17 17:05 12/19/17 17:15 12/19/17 17:30 Temperature Pulse Rate 110 H 119 H 68 Respiratory Rate 21 33 H 28 H Blood Pressure 82/51 L 126/80 142/83 H Pulse Oximetry 100 79 L 12/19/17 17:45 12/19/17 18:00 12/19/17 18:01 Temperature Pulse Rate 121 H 129 H 132 H Respiratory Rate 13 12 11 L Blood Pressure 144/65 H 78/41 L Pulse Oximetry 12/19/17 18:07 12/19/17 18:15 12/19/17 18:34 Temperature Pulse Rate 97 H Respiratory Rate 9 L Blood Pressure 108/53 L 149/57 H Pulse Oximetry 60 L 100 87 L 12/19/17 18:45 12/19/17 19:00 12/19/17 19:15 Temperature Pulse Rate 91 H 91 H 91 H Respiratory Rate 20 20 20 Blood Pressure 106/53 L 103/55 L 112/56 L Pulse Oximetry 89 L 92 L 12/19/17 19:30 12/19/17 19:45 12/19/17 20:00 Temperature 98.5 F Pulse Rate 91 H 91 H 91 H Respiratory Rate 20 20 21 Blood Pressure 112/58 L 107/57 L 111/57 L Pulse Oximetry 90 L 93 L 95 12/19/17 20:09 12/19/17 20:15 12/19/17 20:30 Temperature 98.5 F Pulse Rate 90 92 H Respiratory Rate 20 20 21 Blood Pressure 105/54 L 104/55 L Pulse Oximetry 94 L 94 L 94 L 12/19/17 20:32 12/19/17 20:45 12/19/17 21:00 Temperature 99.5 F Pulse Rate 91 H 92 H 92 H Respiratory Rate 21 22 23 Blood Pressure 108/57 L 101/53 L 108/57 L Pulse Oximetry 94 L 94 L 94 L 12/19/17 21:15 12/19/17 21:30 12/19/17 21:45 Temperature Pulse Rate 89 91 H 87 Respiratory Rate 21 23 21 Blood Pressure 99/58 L 102/52 L 104/58 L Pulse Oximetry 94 L 94 L 95 12/19/17 22:00 12/19/17 22:15 12/19/17 22:30 Temperature 98.4 F Pulse Rate 86 85 85 Respiratory Rate 23 23 23 Blood Pressure 104/52 L 108/58 L 102/54 L Pulse Oximetry 94 L 95 94 L 12/19/17 22:31 12/19/17 22:45 12/19/17 23:00 Temperature 99 F Pulse Rate 85 83 83 Respiratory Rate 22 22 24 Blood Pressure 107/58 L 104/56 L 100/58 L Pulse Oximetry 96 94 L 96 12/19/17 23:15 12/19/17 23:30 12/19/17 23:45 Temperature Pulse Rate 90 91 H 90 Respiratory Rate 24 24 24 Blood Pressure 99/55 L 103/54 L 99/58 L Pulse Oximetry 97 93 L 92 L 12/20/17 00:00 12/20/17 00:05 12/20/17 00:15 Temperature 98.8 F Pulse Rate 87 86 Respiratory Rate 17 23 23 Blood Pressure 103/55 L 102/53 L Pulse Oximetry 93 L 94 L 93 L 12/20/17 00:19 12/20/17 00:30 12/20/17 00:45 Temperature 98.8 F Pulse Rate 84 84 85 Respiratory Rate 23 24 29 H Blood Pressure 108/59 L 102/58 L 100/55 L Pulse Oximetry 94 L 84 L 75 L 12/20/17 01:00 12/20/17 01:15 12/20/17 01:30 Temperature Pulse Rate 81 82 80 Respiratory Rate 21 22 21 Blood Pressure 101/51 L 94/53 L 102/54 L Pulse Oximetry 85 L 95 92 L 12/20/17 01:45 12/20/17 02:00 12/20/17 02:15 Temperature Pulse Rate 87 79 79 Respiratory Rate 25 H Blood Pressure 92/51 L 92/51 L 86/54 L Pulse Oximetry 92 L 90 L 94 L 12/20/17 02:30 12/20/17 02:45 12/20/17 03:00 Temperature Pulse Rate 80 79 79 Respiratory Rate Blood Pressure 86/54 L 89/54 L 91/55 L Pulse Oximetry 93 L 93 L 94 L 12/20/17 03:15 12/20/17 03:30 12/20/17 03:45 Temperature Pulse Rate 78 77 78 Respiratory Rate Blood Pressure 85/54 L 91/52 L 100/54 L Pulse Oximetry 93 L 91 L 88 L 12/20/17 03:52 12/20/17 04:00 12/20/17 04:15 Temperature 99.0 F Pulse Rate 75 78 78 Respiratory Rate 20 Blood Pressure 109/58 L 101/55 L Pulse Oximetry 89 L 90 L 12/20/17 04:30 12/20/17 04:45 12/20/17 05:00 Temperature Pulse Rate 79 78 79 Respiratory Rate Blood Pressure 98/53 L 93/54 L 91/50 L Pulse Oximetry 94 L 96 93 L 12/20/17 07:00 12/20/17 08:00 Temperature Pulse Rate 101 H Respiratory Rate 23 21 Blood Pressure Pulse Oximetry 98 Intake & Output 12/19/17 12/20/17 12/20/17 18:59 06:59 18:59 Intake Total 2750 / 2750 3085 / 3085 1350 / 1350 Output Total 1890 / 1890 518 / 518 Balance 860 / 860 2567 / 2567 1350 / 1350 Weight 47.2 kg Intake: IV 2750 / 2750 3085 / 3085 1350 / 1350 Cordarone Inj 450 MG In D5W Inj 250 / 250 250 / 250 241 ML @ 1 MG/MIN 33.33 mls/hr IV.CONT .[id number] ANIL Rx#: [id number] Levophed Inj 16 MG In D5W Inj 250 / 250 234 ML @ 2 MCG/MIN 1.87 mls/hr IV.CONT TITRATE PRN Rx#: [id number] Protonix Inj 80 MG In NS Inj 100 / 100 100 / 100 100 ML @ 10 mls/hr IV.CONT Q10H ANIL Rx#:[id number] Sodium Bicarbonate 8.4% Inj 150 2000 / 2000 1000 / 1000 1000 / 1000 MEQ In D5W Inj 850 ML @ 75 mls /hr IV.CONT .[id number] ANIL Rx#: [id number] Pitressin Inj 40 UNIT In NS Inj 100 / 100 98 ML @ 0.04 UNITS/MIN 6 mls/ hr IV.CONT CONT ANIL Rx#: [id number] Alburx 5% Inj 500 ML @ 250 mls/ 500 / 500 1000 / 1000 hr IV.SIG Q8H ANIL Rx#:[id number] Magnesium Sulfate Inj 2 GM In 100 / 100 NS Inj 96 ML @ 50 mls/hr IV.SIG UNSCH PRN Rx#:[id number] Protonix Inj 80 MG In NS Inj 35 35 / 35 ML @ 420 mls/hr IV.SIG BOLUS ONE Rx#:[id number] Zosyn 2.25 GM Premix 50 ML @ 100 / 100 100 mls/hr IV.SIG Q6H ANIL Rx#: [id number] Zosyn 3.375 GM Premix 50 ML @ 50 / 50 100 mls/hr IV.SIG Q6H ANIL Rx#: [id number] KCl 40 mEq Premix Inj 40 meq In 100 / 100 100 ml @ 25 mls/hr IV.SIG Q2H PRN Rx#:[id number] Vancomycin Inj 1,000 MG In NS 250 / 250 Inj 250 ML @ 250 mls/hr IV.SIG ONCE ONE Rx#:[id number] Intake (Blood Product) Amt 0 / 0 Rbc As-3 Leukoreduced Unit 0 / 0 [id number] Rbc As-3 Leukoreduced Unit 0 / 0 [id number] Output: Urine Amount (Catheter) 800 / 800 500 / 500 Indwelling Urethral Catheter 800 / 800 500 / 500 Gastric Drainage 500 / 500 0 / 0 Oral Orogastric Tube 500 / 500 0 / 0 Chest Tube Drainage 590 / 590 Right Upper 590 / 590 Other: Date of Last Bowel Movement 12/19/17 12/19/17 12/19/17 # Bowel Movements 1 - Urinary Catheter Management Indwelling Urethral Catheter Cath placed during this visit: no <Chucky Christianson A - Last Filed: 12/20/17 13:30> Results - Labs CBC & Chem 7: 12/20/17 01:15 12/20/17 01:15 Laboratory Results - last 24 hr 12/19/17 12/19/17 12/19/17 10:10 16:09 17:26 WBC RBC Hgb Hct MCV MCH MCHC RDW Plt Count MPV Prelim Diff (Auto) Neut % (Auto) Lymph % (Auto) Mckean % (Auto) Eos % (Auto) Baso % (Auto) Neut # (Auto) Lymph # (Auto) Mckean # (Auto) Eos # (Auto) Baso # (Auto) WBC Differential Seg Neuts % (Manual) Band Neuts % (Manual) Lymphocytes % (Manual) Monocytes % (Manual) Abs Neuts (Manual) Differential Comment Platelet Estimate Platelet Morphology Ovalocytes PT INR APTT Fibrinogen Puncture Site Right femoral Patient Temperature 98.6 O2 Saturation 98 ABG pH 7.65 H* ABG pCO2 29 L ABG pO2 473 H ABG HCO3 33 H ABG O2 Content 13.0 ABG Base Excess 10.3 H ABG Methemoglobin 1.4 Pablo Test Present Hemoglobin 8.5 L Carboxyhemoglobin 0.6 O2 Delivery Device Ambu to tube Liter Flow 15.00 Vent Setting Inspired O2 100 Critical Value Yes Sodium Potassium Chloride Carbon Dioxide Anion Gap BUN Creatinine Estimated GFR POC Glucose 111 H Random Glucose Lactic Acid Calcium Prot Corrected Calcium Phosphorus Magnesium Total Bilirubin AST ALT Alkaline Phosphatase Lactate Dehydrogenase Total Creatine Kinase CK-MB (CK-2) CK-MB (CK-2) % Troponin I Total Protein Albumin Random Vancomycin MTS Gel Crossmatch See Detail 12/19/17 12/19/17 12/19/17 18:00 18:00 18:00 WBC 31.5 H RBC 3.37 L Hgb 9.1 L Hct 28.4 L MCV 84.1 MCH 26.8 L MCHC 31.9 L RDW 15.4 Plt Count 44 L MPV 10.4 Prelim Diff (Auto) Neut % (Auto) Lymph % (Auto) Mckean % (Auto) Eos % (Auto) Baso % (Auto) Neut # (Auto) Lymph # (Auto) Mckean # (Auto) Eos # (Auto) Baso # (Auto) WBC Differential Seg Neuts % (Manual) Band Neuts % (Manual) Lymphocytes % (Manual) Monocytes % (Manual) Abs Neuts (Manual) Differential Comment Platelet Estimate Platelet Morphology Ovalocytes PT INR APTT Fibrinogen Puncture Site Patient Temperature O2 Saturation ABG pH ABG pCO2 ABG pO2 ABG HCO3 ABG O2 Content ABG Base Excess ABG Methemoglobin Pablo Test Hemoglobin Carboxyhemoglobin O2 Delivery Device Liter Flow Vent Setting Inspired O2 Critical Value Sodium 141 Potassium 3.3 L Chloride 103 Carbon Dioxide 18.3 L Anion Gap 20 H BUN 33 H Creatinine 2.04 H Estimated GFR 23 L POC Glucose Random Glucose 136 H Lactic Acid Calcium 5.4 L* Prot Corrected Calcium 6.4 L* Phosphorus 4.9 D Cancelled Magnesium 1.8 Cancelled Total Bilirubin AST ALT Alkaline Phosphatase Lactate Dehydrogenase 344 H Total Creatine Kinase 471 H CK-MB (CK-2) 4.2 H CK-MB (CK-2) % 0.9 Troponin I 5.59 H* D Total Protein 4.6 L Albumin Random Vancomycin MTS Gel Crossmatch 12/19/17 12/19/17 12/19/17 18:00 18:00 18:00 WBC RBC Hgb Hct MCV MCH MCHC RDW Plt Count MPV Prelim Diff (Auto) Neut % (Auto) Lymph % (Auto) Mckean % (Auto) Eos % (Auto) Baso % (Auto) Neut # (Auto) Lymph # (Auto) Mckean # (Auto) Eos # (Auto) Baso # (Auto) WBC Differential Seg Neuts % (Manual) Band Neuts % (Manual) Lymphocytes % (Manual) Monocytes % (Manual) Abs Neuts (Manual) Differential Comment Platelet Estimate Platelet Morphology Ovalocytes PT 19.1 H INR 1.9 APTT 53.3 H D Fibrinogen Puncture Site Patient Temperature O2 Saturation ABG pH ABG pCO2 ABG pO2 ABG HCO3 ABG O2 Content ABG Base Excess ABG Methemoglobin Pablo Test Hemoglobin Carboxyhemoglobin O2 Delivery Device Liter Flow Vent Setting Inspired O2 Critical Value Sodium Potassium Chloride Carbon Dioxide Anion Gap BUN Creatinine Estimated GFR POC Glucose Random Glucose Lactic Acid Calcium Prot Corrected Calcium Phosphorus Magnesium Total Bilirubin AST ALT Alkaline Phosphatase Lactate Dehydrogenase Total Creatine Kinase Cancelled CK-MB (CK-2) CK-MB (CK-2) % Troponin I Cancelled Total Protein Albumin Random Vancomycin MTS Gel Crossmatch 12/19/17 12/19/17 12/19/17 18:00 18:00 18:01 WBC RBC Hgb Hct MCV MCH MCHC RDW Plt Count MPV Prelim Diff (Auto) Neut % (Auto) Lymph % (Auto) Mckean % (Auto) Eos % (Auto) Baso % (Auto) Neut # (Auto) Lymph # (Auto) Mckean # (Auto) Eos # (Auto) Baso # (Auto) WBC Differential Seg Neuts % (Manual) Band Neuts % (Manual) Lymphocytes % (Manual) Monocytes % (Manual) Abs Neuts (Manual) Differential Comment Platelet Estimate Platelet Morphology Ovalocytes PT INR APTT Fibrinogen 177 L Puncture Site Right femoral Patient Temperature 98.6 O2 Saturation 98 ABG pH 7.24 L* ABG pCO2 43 H ABG pO2 337 H ABG HCO3 18 L ABG O2 Content 13.0 ABG Base Excess -8.1 L ABG Methemoglobin 1.2 Pablo Test Present Hemoglobin 8.8 L Carboxyhemoglobin 0.2 O2 Delivery Device Ventilator Liter Flow Vent Setting Prvc 16/500/+5/0.9 Inspired O2 100 Critical Value Yes Sodium Potassium Chloride Carbon Dioxide Anion Gap BUN Creatinine Estimated GFR POC Glucose Random Glucose Lactic Acid Calcium Prot Corrected Calcium Phosphorus Magnesium Total Bilirubin AST ALT Alkaline Phosphatase Lactate Dehydrogenase Cancelled Total Creatine Kinase CK-MB (CK-2) CK-MB (CK-2) % Troponin I Total Protein Albumin Random Vancomycin MTS Gel Crossmatch 12/19/17 12/20/17 12/20/17 18:50 00:04 01:15 WBC 28.0 H RBC 3.91 L Hgb 10.8 L Hct 32.4 L MCV 82.8 MCH 27.6 MCHC 33.4 RDW 15.5 Plt Count 32 L MPV 11.4 H Prelim Diff (Auto) Slide review pending Neut % (Auto) 93.6 H Lymph % (Auto) 1.7 L Mckean % (Auto) 1.4 Eos % (Auto) 3.2 Baso % (Auto) 0.1 Neut # (Auto) 26.2 H Lymph # (Auto) 0.5 L Mckean # (Auto) 0.4 Eos # (Auto) 0.9 H Baso # (Auto) 0.0 WBC Differential Manual diff final Seg Neuts % (Manual) 71 H Band Neuts % (Manual) 24 H Lymphocytes % (Manual) 2 L Monocytes % (Manual) 3 Abs Neuts (Manual) 26.6 H Differential Comment . Platelet Estimate Low L Platelet Morphology Normal Ovalocytes 1+ H PT INR APTT Fibrinogen Puncture Site Patient Temperature O2 Saturation ABG pH ABG pCO2 ABG pO2 ABG HCO3 ABG O2 Content ABG Base Excess ABG Methemoglobin Pablo Test Hemoglobin Carboxyhemoglobin O2 Delivery Device Liter Flow Vent Setting Inspired O2 Critical Value Sodium Potassium Chloride Carbon Dioxide Anion Gap BUN Creatinine Estimated GFR POC Glucose 108 Random Glucose Lactic Acid 8.7 H* Calcium Prot Corrected Calcium Phosphorus Magnesium Total Bilirubin AST ALT Alkaline Phosphatase Lactate Dehydrogenase Total Creatine Kinase CK-MB (CK-2) CK-MB (CK-2) % Troponin I Total Protein Albumin Random Vancomycin MTS Gel Crossmatch 0712/20/17 12/20/17 01:15 01:15 06:03 WBC RBC Hgb Hct MCV MCH MCHC RDW Plt Count MPV Prelim Diff (Auto) Neut % (Auto) Lymph % (Auto) Mckean % (Auto) Eos % (Auto) Baso % (Auto) Neut # (Auto) Lymph # (Auto) Mckean # (Auto) Eos # (Auto) Baso # (Auto) WBC Differential Seg Neuts % (Manual) Band Neuts % (Manual) Lymphocytes % (Manual) Monocytes % (Manual) Abs Neuts (Manual) Differential Comment Platelet Estimate Platelet Morphology Ovalocytes PT INR APTT Fibrinogen Puncture Site Patient Temperature O2 Saturation ABG pH ABG pCO2 ABG pO2 ABG HCO3 ABG O2 Content ABG Base Excess ABG Methemoglobin Pablo Test Hemoglobin Carboxyhemoglobin O2 Delivery Device Liter Flow Vent Setting Inspired O2 Critical Value Sodium 141 Potassium 2.8 L* Chloride 102 Carbon Dioxide 22.4 Anion Gap 17 H BUN 34 H Creatinine 1.74 H Estimated GFR 28 L POC Glucose 137 H Random Glucose 137 H Lactic Acid 6.1 H* Calcium 5.2 L* Prot Corrected Calcium 6.3 L* D Phosphorus 3.5 D Magnesium 1.5 Total Bilirubin 6.1 H AST 114 H ALT 68 H Alkaline Phosphatase 89 Lactate Dehydrogenase Total Creatine Kinase CK-MB (CK-2) CK-MB (CK-2) % Troponin I 5.18 H* D Total Protein 4.5 L Albumin 3.0 L Random Vancomycin 10.9 MTS Gel Crossmatch Microbiology 12/17/17 14:50 Blood - Peripheral Aerobic Blood Culture - Preliminary No growth in 3 days 12/17/17 14:50 Blood - Peripheral Anaerobic Blood Culture - Preliminary No growth in 3 days 12/17/17 14:55 Blood - Peripheral Aerobic Blood Culture - Preliminary No growth in 3 days 12/17/17 14:55 Blood - Peripheral Anaerobic Blood Culture - Preliminary No growth in 3 days 12/17/17 15:35 Clean Catch Urine Urine Culture - Final No growth in 48 hours - Imaging Impressions Chest X-Ray 12/19/17 00:00 CONCLUSION: 1. New small right pneumothorax. There are no signs of tension. 2. Possible pneumomediastinum. There is new soft tissue air in the left supraclavicular region. 3. Stable changes characteristic of pulmonary edema with bilateral mid and lower lung zone interstitial opacities. 4. Please note that the entire lung bases were not completely imaged on this examination. Chest X-Ray 12/19/17 00:00 CONCLUSION: 1. Interval placement of right chest tube with tip at the apex of the right hemithorax. The right pneumothorax has resolved. 2. Interval worsening of the airspace consolidation in the left lower lung zone. 3. Persistent questionable findings which could indicate a pneumomediastinum. Chest X-Ray 12/20/17 05:00 CONCLUSION: Increasing density throughout the left lung with minimal patchy densities in the right lung base. <Selene Staples - Last Filed: 12/20/17 13:05> - Labs CBC & Chem 7: 12/20/17 01:15 12/20/17 01:15 Laboratory Results - last 24 hr 12/19/17 12/19/17 12/19/17 10:10 16:09 17:26 WBC RBC Hgb Hct MCV MCH MCHC RDW Plt Count MPV Prelim Diff (Auto) Neut % (Auto) Lymph % (Auto) Mckean % (Auto) Eos % (Auto) Baso % (Auto) Neut # (Auto) Lymph # (Auto) Mckean # (Auto) Eos # (Auto) Baso # (Auto) WBC Differential Seg Neuts % (Manual) Band Neuts % (Manual) Lymphocytes % (Manual) Monocytes % (Manual) Abs Neuts (Manual) Differential Comment Platelet Estimate Platelet Morphology Ovalocytes PT INR APTT Fibrinogen Puncture Site Right femoral Patient Temperature 98.6 O2 Saturation 98 ABG pH 7.65 H* ABG pCO2 29 L ABG pO2 473 H ABG HCO3 33 H ABG O2 Content 13.0 ABG Base Excess 10.3 H ABG Methemoglobin 1.4 Pablo Test Present Hemoglobin 8.5 L Carboxyhemoglobin 0.6 O2 Delivery Device Ambu to tube Liter Flow 15.00 Vent Setting Inspired O2 100 Critical Value Yes Sodium Potassium Chloride Carbon Dioxide Anion Gap BUN Creatinine Estimated GFR POC Glucose 111 H Random Glucose Lactic Acid Calcium Prot Corrected Calcium Phosphorus Magnesium Total Bilirubin AST ALT Alkaline Phosphatase Lactate Dehydrogenase Total Creatine Kinase CK-MB (CK-2) CK-MB (CK-2) % Troponin I Total Protein Albumin Random Vancomycin MTS Gel Crossmatch See Detail 12/19/17 12/19/17 12/19/17 18:00 18:00 18:00 WBC 31.5 H RBC 3.37 L Hgb 9.1 L Hct 28.4 L MCV 84.1 MCH 26.8 L MCHC 31.9 L RDW 15.4 Plt Count 44 L MPV 10.4 Prelim Diff (Auto) Neut % (Auto) Lymph % (Auto) Mckean % (Auto) Eos % (Auto) Baso % (Auto) Neut # (Auto) Lymph # (Auto) Mckean # (Auto) Eos # (Auto) Baso # (Auto) WBC Differential Seg Neuts % (Manual) Band Neuts % (Manual) Lymphocytes % (Manual) Monocytes % (Manual) Abs Neuts (Manual) Differential Comment Platelet Estimate Platelet Morphology Ovalocytes PT INR APTT Fibrinogen Puncture Site Patient Temperature O2 Saturation ABG pH ABG pCO2 ABG pO2 ABG HCO3 ABG O2 Content ABG Base Excess ABG Methemoglobin Pablo Test Hemoglobin Carboxyhemoglobin O2 Delivery Device Liter Flow Vent Setting Inspired O2 Critical Value Sodium 141 Potassium 3.3 L Chloride 103 Carbon Dioxide 18.3 L Anion Gap 20 H BUN 33 H Creatinine 2.04 H Estimated GFR 23 L POC Glucose Random Glucose 136 H Lactic Acid Calcium 5.4 L* Prot Corrected Calcium 6.4 L* Phosphorus 4.9 D Cancelled Magnesium 1.8 Cancelled Total Bilirubin AST ALT Alkaline Phosphatase Lactate Dehydrogenase 344 H Total Creatine Kinase 471 H CK-MB (CK-2) 4.2 H CK-MB (CK-2) % 0.9 Troponin I 5.59 H* D Total Protein 4.6 L Albumin Random Vancomycin MTS Gel Crossmatch 12/19/17 12/19/17 12/19/17 18:00 18:00 18:00 WBC RBC Hgb Hct MCV MCH MCHC RDW Plt Count MPV Prelim Diff (Auto) Neut % (Auto) Lymph % (Auto) Mckean % (Auto) Eos % (Auto) Baso % (Auto) Neut # (Auto) Lymph # (Auto) Mckean # (Auto) Eos # (Auto) Baso # (Auto) WBC Differential Seg Neuts % (Manual) Band Neuts % (Manual) Lymphocytes % (Manual) Monocytes % (Manual) Abs Neuts (Manual) Differential Comment Platelet Estimate Platelet Morphology Ovalocytes PT 19.1 H INR 1.9 APTT 53.3 H D Fibrinogen Puncture Site Patient Temperature O2 Saturation ABG pH ABG pCO2 ABG pO2 ABG HCO3 ABG O2 Content ABG Base Excess ABG Methemoglobin Pablo Test Hemoglobin Carboxyhemoglobin O2 Delivery Device Liter Flow Vent Setting Inspired O2 Critical Value Sodium Potassium Chloride Carbon Dioxide Anion Gap BUN Creatinine Estimated GFR POC Glucose Random Glucose Lactic Acid Calcium Prot Corrected Calcium Phosphorus Magnesium Total Bilirubin AST ALT Alkaline Phosphatase Lactate Dehydrogenase Total Creatine Kinase Cancelled CK-MB (CK-2) CK-MB (CK-2) % Troponin I Cancelled Total Protein Albumin Random Vancomycin MTS Gel Crossmatch 12/19/17 12/19/17 12/19/17 18:00 18:00 18:01 WBC RBC Hgb Hct MCV MCH MCHC RDW Plt Count MPV Prelim Diff (Auto) Neut % (Auto) Lymph % (Auto) Mckean % (Auto) Eos % (Auto) Baso % (Auto) Neut # (Auto) Lymph # (Auto) Mckean # (Auto) Eos # (Auto) Baso # (Auto) WBC Differential Seg Neuts % (Manual) Band Neuts % (Manual) Lymphocytes % (Manual) Monocytes % (Manual) Abs Neuts (Manual) Differential Comment Platelet Estimate Platelet Morphology Ovalocytes PT INR APTT Fibrinogen 177 L Puncture Site Right femoral Patient Temperature 98.6 O2 Saturation 98 ABG pH 7.24 L* ABG pCO2 43 H ABG pO2 337 H ABG HCO3 18 L ABG O2 Content 13.0 ABG Base Excess -8.1 L ABG Methemoglobin 1.2 Pablo Test Present Hemoglobin 8.8 L Carboxyhemoglobin 0.2 O2 Delivery Device Ventilator Liter Flow Vent Setting Prvc 16/500/+5/0.9 Inspired O2 100 Critical Value Yes Sodium Potassium Chloride Carbon Dioxide Anion Gap BUN Creatinine Estimated GFR POC Glucose Random Glucose Lactic Acid Calcium Prot Corrected Calcium Phosphorus Magnesium Total Bilirubin AST ALT Alkaline Phosphatase Lactate Dehydrogenase Cancelled Total Creatine Kinase CK-MB (CK-2) CK-MB (CK-2) % Troponin I Total Protein Albumin Random Vancomycin MTS Gel Crossmatch 12/19/17 12/20/17 12/20/17 18:50 00:04 01:15 WBC 28.0 H RBC 3.91 L Hgb 10.8 L Hct 32.4 L MCV 82.8 MCH 27.6 MCHC 33.4 RDW 15.5 Plt Count 32 L MPV 11.4 H Prelim Diff (Auto) Slide review pending Neut % (Auto) 93.6 H Lymph % (Auto) 1.7 L Mckean % (Auto) 1.4 Eos % (Auto) 3.2 Baso % (Auto) 0.1 Neut # (Auto) 26.2 H Lymph # (Auto) 0.5 L Mckean # (Auto) 0.4 Eos # (Auto) 0.9 H Baso # (Auto) 0.0 WBC Differential Manual diff final Seg Neuts % (Manual) 71 H Band Neuts % (Manual) 24 H Lymphocytes % (Manual) 2 L Monocytes % (Manual) 3 Abs Neuts (Manual) 26.6 H Differential Comment . Platelet Estimate Low L Platelet Morphology Normal Ovalocytes 1+ H PT INR APTT Fibrinogen Puncture Site Patient Temperature O2 Saturation ABG pH ABG pCO2 ABG pO2 ABG HCO3 ABG O2 Content ABG Base Excess ABG Methemoglobin Pablo Test Hemoglobin Carboxyhemoglobin O2 Delivery Device Liter Flow Vent Setting Inspired O2 Critical Value Sodium Potassium Chloride Carbon Dioxide Anion Gap BUN Creatinine Estimated GFR POC Glucose 108 Random Glucose Lactic Acid 8.7 H* Calcium Prot Corrected Calcium Phosphorus Magnesium Total Bilirubin AST ALT Alkaline Phosphatase Lactate Dehydrogenase Total Creatine Kinase CK-MB (CK-2) CK-MB (CK-2) % Troponin I Total Protein Albumin Random Vancomycin MTS Gel Crossmatch 12/20/17 12/20/17 12/20/17 01:15 01:15 06:03 WBC RBC Hgb Hct MCV MCH MCHC RDW Plt Count MPV Prelim Diff (Auto) Neut % (Auto) Lymph % (Auto) Mckean % (Auto) Eos % (Auto) Baso % (Auto) Neut # (Auto) Lymph # (Auto) Mckean # (Auto) Eos # (Auto) Baso # (Auto) WBC Differential Seg Neuts % (Manual) Band Neuts % (Manual) Lymphocytes % (Manual) Monocytes % (Manual) Abs Neuts (Manual) Differential Comment Platelet Estimate Platelet Morphology Ovalocytes PT INR APTT Fibrinogen Puncture Site Patient Temperature O2 Saturation ABG pH ABG pCO2 ABG pO2 ABG HCO3 ABG O2 Content ABG Base Excess ABG Methemoglobin Pablo Test Hemoglobin Carboxyhemoglobin O2 Delivery Device Liter Flow Vent Setting Inspired O2 Critical Value Sodium 141 Potassium 2.8 L* Chloride 102 Carbon Dioxide 22.4 Anion Gap 17 H BUN 34 H Creatinine 1.74 H Estimated GFR 28 L POC Glucose 137 H Random Glucose 137 H Lactic Acid 6.1 H* Calcium 5.2 L* Prot Corrected Calcium 6.3 L* D Phosphorus 3.5 D Magnesium 1.5 Total Bilirubin 6.1 H AST 114 H ALT 68 H Alkaline Phosphatase 89 Lactate Dehydrogenase Total Creatine Kinase CK-MB (CK-2) CK-MB (CK-2) % Troponin I 5.18 H* D Total Protein 4.5 L Albumin 3.0 L Random Vancomycin 10.9 MTS Gel Crossmatch Microbiology 12/17/17 14:50 Blood - Peripheral Aerobic Blood Culture - Preliminary No growth in 3 days 12/17/17 14:50 Blood - Peripheral Anaerobic Blood Culture - Preliminary No growth in 3 days 12/17/17 14:55 Blood - Peripheral Aerobic Blood Culture - Preliminary No growth in 3 days 12/17/17 14:55 Blood - Peripheral Anaerobic Blood Culture - Preliminary No growth in 3 days 12/17/17 15:35 Clean Catch Urine Urine Culture - Final No growth in 48 hours - Imaging Impressions Chest X-Ray 12/19/17 00:00 CONCLUSION: 1. New small right pneumothorax. There are no signs of tension. 2. Possible pneumomediastinum. There is new soft tissue air in the left supraclavicular region. 3. Stable changes characteristic of pulmonary edema with bilateral mid and lower lung zone interstitial opacities. 4. Please note that the entire lung bases were not completely imaged on this examination. Chest X-Ray 12/19/17 00:00 CONCLUSION: 1. Interval placement of right chest tube with tip at the apex of the right hemithorax. The right pneumothorax has resolved. 2. Interval worsening of the airspace consolidation in the left lower lung zone. 3. Persistent questionable findings which could indicate a pneumomediastinum. Chest X-Ray 12/20/17 05:00 CONCLUSION: Increasing density throughout the left lung with minimal patchy densities in the right lung base. <Chucky Christianson - Last Filed: 12/20/17 13:30> Assessment and Plan (1) Upper GI bleed Status: Acute Code(s): K92.2 - Gastrointestinal hemorrhage, unspecified - Plan Assessment: - Bloody output from OG tube- Pt S/P outpatient ureteral stent placement in [facility], sent to hospital for evaluation of fever- now in ICU mechanically ventilated, on two pressors, now in a-fib RVR since last night and on Amiodarone gtt (History of a-fib but according to notes was in sinus rhythm on admission) Of note, pt also with hematuria- Was on Eliquis for a-fib, this was discontinued 3 days prior to admission for outpatient procedure. Per at bedside, pt with history of gastric ulcer. Pt reports previous EGD but that it was awhile ago. Unable to obtain more detailed history, pt is awake but orally intubated and only able to shake head yes or no to questions At this time, pt too unstable for GI procedures. Recommend monitoring H/H closely and transfusing as needed. Protonix gtt. 12/20/2017 spoke with refinery operator light ends recovery and family members. Patient has made the decision she does not want to continue aggressive measures and is planning to move to a hospice situation. GI cannot do any procedures at this time due to patient's instability. GI will sign off Supportive care to patient and her family members Per myself and Dr. Christianson, note was written on his behalf <Selene Staples - Last Filed: 12/20/17 13:05> (1) Upper GI bleed Status: Acute Code(s): K92.2 - Gastrointestinal hemorrhage, unspecified - Attending Attestation PAs above, palliative care for now. Please notify us if needed again. <Chucky Christianson - Last Filed: 12/20/17 13:30>
--- NOTE | 2017-12-20 17:48 | ECG ---
Date Performed: 12/19/2017 Time Performed: 18:15:46 PTAGE: 82 years EKG: Sinus rhythm . Possible anteroseptal infarct - age undetermined Lateral ST-T changes are nonspecific Abnormal ECG NO PREVIOUS TRACING DOCTOR: Patel Lucero Interpretating Date/Time 12/20/2017 17:46:54
[2017-12-20] MEDS ORDERED: Pharmacy Ordered Lab Info OTHER ONE (21:45)
--- NOTE | 2018-02-06 08:59 | P.DN ---
Discharge Sum: Prov - Provider Primary care physician: Mitchell Aviles MD Admitting clinician: Jonah Bartlett Attending physician on admission: Jonah Bartlett Consults: 12/18/17 07:32 Consult to Infectious Diseases Routine Consulting Provider: Connie Ragland Reason for Consultation: septic shock Notified:: Service Spoke with:: jonny Date Notified:: 12/18/17 Time Notified:: 07:36 Ordering Provider: MOHSEN 12/18/17 09:28 Consult to Urology Routine Consulting Provider: Rome Pinto Reason for Consultation: hematuria/ septic shock following left ureteroscopy , stone removal and double J stent placement Notified:: Service Spoke with:: jared Date Notified:: 12/18/17 Time Notified:: 09:42 Comments:: urologist who did procedure does not have privileges at [facility] Ordering Provider: MOHSEN 12/18/17 14:35 [facility] Only Consult Order Routine Consulting Provider: Breanne Raymundo 12/19/17 09:43 Consult to Gastroenterology Routine Consulting Provider: Chucky Christianson Reason for Consultation: Bloody OG output/ UGIB Notified:: Office Spoke with:: Anika Date Notified:: 12/19/17 Time Notified:: 09:46 Ordering Provider: MOHSEN 12/20/17 07:52 Consult to Cardiology Routine Consulting Provider: Corey Whalen Does the patient have a Manager Of Training who follows them?: No Preferred Daytime Caregiver:: Carton Forming Machine Tender Physician Reason for Consultation: NSTEMI, Afib with RVR Notified:: Office Spoke with:: Nora Date Notified:: 12/20/17 Time Notified:: 07:59 Ordering Provider: MOHSEN 12/20/17 09:47 Consult to Hospice Routine Consulting Provider: Call Back Discharge Sum: Diag - PCOD Cause of : Cardiac arrest Discharge Sum: Summary - Date and Time Date of admission: 12/17/17 18:08 Date of : 12/20/17 Time of : 12:39 - Summary Details: - Assessment and Plan ON DAY OF EXPIRATION Plan: Neuro/Psych: Glaucoma Medicine reconciliation currently in process for her glaucoma medications which she is on 4 according to son at bedside. Acetaminophen 650 mg by mouth every 6 hours as needed fever Hydrocodone/acetaminophen 5/325 1 tablet every 4 hours as needed pain 1 through 5 Morphine sulfate 2 mg IV every 2 hours as needed pain 6 or 10 CV: Septic shock Lactic acidosis History of atrial fibrillation A. fib with RVR Cardiac arrest status post CPR Elevated troponin with NSTEMI Received 4 L normal saline in ED. Serial lactates until cleared. Switched to bicarb drip in view of metabolic acidosis. 5% albumin every 8 hourly. Continue stress dose steroids in view of refractory shock requiring high-dose pressors. Currently on norepinephrine at 6 mcg/min/vasopressin 0.04 U/min to maintain mean arterial pressure greater or equal to [address]-T changes in the anterior leads. Normal sinus rhythm. Normal AL, QRS and QT intervals. On amiodarone infusion with adequate rate control. Given digoxin 0.5 mg IV earier Resp: Acute respiratory failure on mechanical ventilation On mechanical ventilation, vent bundle, bronchodilators GI: UGI bleed Elevated total bilirubin Hypoalbuminemia OG tube. Holding tube feeds in view of bloody NG output. GI consult requested.. Pantoprazole for GI prophylaxis. Docusate sodium/senna 1 tablet twice daily for bowel regimen CT abdomen/pelvis revealed no acute intra-abdominal findings. Double-J stent remains in place : Status post left renal stent retrieval with placement of double-J stent/ lithotripsy History of recurrent nephrolithiasis with lithotripsy Dr. Clayton did the procedure above. Vance catheterization for accurate intake output. Urology consult requested for further evaluation in view of hematuria and recent urologic procedure causing septic shock-discussed with Dr. Pinto on . Urology evaluation noted CT abdomen pelvis on admission did not show any evidence of obstruction abscess formation and showed double-J stent in appropriate position. Endo: Sliding scale insulin if necessary to maintain euglycemia On stress dose steroids Renal: Strict intake output, monitor and replete electrolytes, follow BUN creatinine. Heme: Leukopenia with neutropenia - improved Thrombocytopenia Monitor CBC daily. Follow trends. Neutropenic precautions Type and screen. Transfuse to keep hemoglobin above 8 g percent ID: Septic shock likely secondary to urinary tract infection Currently on vancomycin and cefepime ID consulted and following. Blood cultures 2, UA 12/17 pending FEN: Hypomagnesia Replace electrolytes as clinically indicated per ICU electrolyte protocol MSK: PT evaluate and treat Access -Right IJ CVL placed in 12/17 - A line Prophylaxis -GI -pantoprazole -DVT -SCD Extensive discussion held with patient's son and daughter following evaluation of patient and discussion with Dr. Whalen. They understand that she is critically ill and possibly terminal multiorgan failure from septic shock and ongoing GI bleed, worsening thrombocytopenia, worsening respiratory failure with low likelihood of survival. Patient has expressed her wishes to them previously and this morning that she would not want aggressive care in this situation and they wish to transition to comfort measures only and wish to stop all aggressive measures including mechanical ventilation pressors antibiotics. I have discussed this with Dr. Corey Whalen who was in agreement and he feels that patient is terminal. Family wishes to transition to hospice. Case management give patient a list to choose hospice facility of their choice and hospice consult requested. Exhibits B & C completed. Copies of patient's advanced directive and healthcare proxy placed on chart. Family wisheD to proceed with normal wean and comfort measures. Placed orders for vent withdrawal and to stop all other medications including all drips/ pressors. Patient initiated on Ativan/morphine/Dilaudid as needed and proceedED with terminal wean and extubated patient. Patient eventually went into cardiac arrest and on 12/20/17 at 1239 hours. - Additional Data Attending/PCP notified?: Yes Attending physician: Jonah Bartlett MD Was code activated?: No Autopsy requested?: No Advance directives: Unknown
== END 2017-12-20 12:39 | disposition expired ==
LOC: NEPE 13:59 → NEDA 18:08 → HIMC 12-18 01:30
PROVIDERS: ADMIT Internal Medicine Critical Care Medicine; ATTEND Internal Medicine Critical Care Medicine